=== PATIENT | female | born 1940 | race Caucasian/White ===

== ENCOUNTER → 2021-05-25 09:22 | Outpatient (BNVA) | payer MEDICARE, SELFPAY | PROVIDERS: PCP Family Medicine; Visit Provider Family Medicine | DX: E03.9 Hypothyroidism, unspecified (principal); Z13.220 Encounter for screening for lipoid disorders; I10 Essential (primary) hypertension; Z13.6 Encounter for screening for cardiovascular disorders | CPT/HCPCS: 80053; 80061; 84439; 84443; 84481 ==

== ENCOUNTER → 2021-09-23 15:12 | Outpatient (BNVA) | payer MEDICARE, SELFPAY | PROVIDERS: PCP Family Medicine; Visit Provider Family Medicine | DX: K21.9 Gastro-esophageal reflux disease without esophagitis (principal); I10 Essential (primary) hypertension; E03.9 Hypothyroidism, unspecified; M70.61 Trochanteric bursitis, right hip | CPT/HCPCS: 80048; 84443 ==

== ENCOUNTER → 2022-02-19 14:18 | Outpatient (BNVA) | payer MEDICARE, SELFPAY | PROVIDERS: PCP Family Medicine; Visit Provider Emergency Medicine | DX: M70.61 Trochanteric bursitis, right hip (principal); M25.551 Pain in right hip; G89.29 Other chronic pain; M25.561 Pain in right knee | CPT/HCPCS: 73503; 73562 ==

== ENCOUNTER → 2022-03-09 14:35 | Outpatient (BNVA) | payer MEDICARE, SELFPAY | PROVIDERS: PCP Family Medicine; Visit Provider Orthopaedic Surgery | DX: M16.11 Unilateral primary osteoarthritis, right hip (principal) | CPT/HCPCS: 99203; 99204 ==

== ENCOUNTER 2022-03-21 14:58 | Observation (INO) | payer MEDICARE, SELFPAY ==
[2022-03-21 15:00] VITALS: BP 108/69; PULSE 79; RESP 18; TEMP 36.7; O2SAT 93; BMI 29.6
--- NOTE | 2022-03-21 16:39 | CTR_ITS ---
PROCEDURE INFORMATION: Exam: CT Abdomen And Pelvis With Contrast Exam date and time: 03/21/2022 6:06 PM Age: 82 years old Clinical indication: Other: Diarrhea 2 weeks; Prior surgery; Surgery date: 6+ months; Surgery type: Hyster, stimulator; Additional info: Sbo TECHNIQUE: Imaging protocol: Computed tomography of the abdomen and pelvis with contrast. Radiation optimization: All CT scans at this facility use at least one of these dose optimization techniques: automated exposure control; mA and/or kV adjustment per patient size (includes targeted exams where dose is matched to clinical indication); or iterative reconstruction. Contrast material: OMNI 350; Contrast volume: 80 ml; Contrast route: INTRAVENOUS (IV); COMPARISON: CR XR hip RT 4V wo/w pel [id number] 02/19/2022 2:27 PM RADIATION DOSE METRICS: Total DLP (mGy-cm): 691.43 FINDINGS: Diaphragm: Large hiatal hernia. Liver: Normal. No mass. Gallbladder and bile ducts: Biliary dilation, likely related to prior cholecystectomy. Pancreas: Normal. No ductal dilation. Spleen: Normal. No splenomegaly. Adrenal glands: Normal. No mass. Kidneys and ureters: Normal. No hydronephrosis. Stomach and bowel: Prominent fluid in the small bowel and colon without dilation may reflect an enterocolitis. Diverticulosis without diverticulitis. Appendix: No evidence of appendicitis. Intraperitoneal space: Unremarkable. No free air. No significant fluid collection. Vasculature: Somewhat equivocal filling defects in the bilateral common femoral veins, consider further evaluation with duplex venous ultrasound if concern for deep venous thromboses exists. Lymph nodes: Unremarkable. No enlarged lymph nodes. Urinary bladder: Unremarkable as visualized. Reproductive: Unremarkable as visualized. Bones/joints: Severe right hip osteoarthritis. Soft tissues: Unremarkable. CT/CT abdomen pelvis w con* [id number] IMPRESSION: 1. Prominent fluid in the small bowel and colon without dilation may reflect an enterocolitis 2. Severe right hip osteoarthritis. 3. Large hiatal hernia. 4. Biliary dilation, likely related to prior cholecystectomy. 5. Diverticulosis without diverticulitis. 6. Somewhat equivocal filling defects in the bilateral common femoral veins, consider further evaluation with duplex venous ultrasound if concern for deep venous thromboses exists.
--- NOTE | 2022-03-21 16:40 | ED_ITS ---
HPI - Nausea/Vomiting/Diarrhea General: Chief complaint: Nausea/Vomiting/Diarrhea Stated complaint: N/V/D Weakness Time Seen by Provider: 03/21/22 16:34 History of Present Illness: 82-year-old female presents due to nausea vomiting diarrhea for 2 weeks. Denies any abdominal pain. Denies any constipation dysuria or pelvic discharge. Denies any blood or bile in the emesis or diarrh ea. Review of Systems Narrative: - CONSTITUTIONAL: Denies weight loss, fever and chills. - HEENT: Denies changes in vision and hearing. - RESPIRATORY: Denies SOB and cough. - CV: Denies palpitations and CP. - GI: As above - : Denies dysuria and urinary frequency. - MSK: Denies myalgia and joint pain. - SKIN: Denies rash and pruritus. - NEUROLOGICAL: Denies headache, weakness, numbness and syncope. - PSYCHIATRIC: Denies suicidal ideation [facility] PFSH: Medical History Degenerative arthritis of hip GERD (gastroesophageal reflux disease) Hypertension Hypothyroid Social History Smoking and tobacco status: never smoked History of recent travel: No Current gender identity: Female Physical Exam Narrative: EXAM NARRATIVE: - GENERAL: Alert and oriented x 3. No acute distress. Well-nourished. - EYES: EOMI. Anicteric. - HENT: Atraumatic, no C-spine tenderness. Moist mucous membranes. No scleral icterus. No cervical lymphadenopathy. - LUNGS: Clear to auscultation bilaterally. No accessory muscle use. Equal lung sounds bilaterally. No respiratory distress. - CARDIOVASCULAR: Regular rate and rhythm. No murmur. No JVD. - ABDOMEN: Soft, non-tender and non-distended. Negative CVA tenderness deric aterally, no rebound or guarding, negative Munoz sign. No palpable masses. - EXTREMITIES: No edema. Non-tender. - SKIN: No rashes or lesions. Warm. - NEUROLOGIC: No meningismus or focal neurological deficits. CN II-XII grossly intact. - PSYCHIATRIC: Cooperative. Appropriate mood and affect. Course Vital Signs: Vital signs: Vital Signs Temperature 98.1 F 03/21/22 15:00 Pulse Rate 79 03/21/22 15:00 Respiratory Rate 18 03/21/22 15:00 Blood Pressure 108/69 03/21/22 15:00 Pulse Oximetry 93 03/21/22 15:00 Oxygen Delivery Me thod 03/21/22 15:00 MDM - Nausea/Vomiting/Diarrhea Medical Decision Making 10-year-old presents with nausea vomiting diarrhea for 2 weeks. Lab work is concerning for SCHUYLER with creatinine elevation to 1.4 from baseline of 1. IV fluids provided. Denies any pain. CT scan does not reveal any acute abdominal pathology except for possible colitis. There is some artifact to bilateral lower extremity vessels however she denies any lower extremity pain or swelling. No clinical signs of DVT present. Remainder of lab work and imaging reviewed. Discussed with hospitalist and they agreed patient would benefit from admission. Patient admitted in stable condition. Further evaluation management per hospitalist team. Lab Data : 03/21/22 16:48 03/21/22 16:48 Radiology Impressions Abdomen/Pelvis CT 03/21/22 16:39 IMPRESSION: 1. Prominent fluid in the small bowel and colon without dilation may reflect an enterocolitis 2. Severe right hip osteoarthritis. 3. Large hiatal hernia. 4. Biliary dilation, likely related to prior cholecystectomy. 5. Diverticulosis without diverticulitis. 6. Somewhat equivocal filling defects in the bilateral common femoral veins, consider further evaluation with duplex venous ultrasound if concern for deep venous thromboses exists. Laboratory Results WBC 10.0 10^3/uL (4.0-10.0) 03/21/22 16:48 RBC 5.14 10^6/uL (4.1-5.3) 03/21/22 16:48 Hgb 14.3 g/dL (11.5-15.3) 03/21/22 16:48 Hct 46.1 % (37.0-47.0) 03/21/22 16:48 MCV 89.7 fl (81-99) 03/21/22 16:48 MCH 27.8 pg (28.0-34.0) L 03/21/22 16:48 MCHC 31.0 g/dL (30.0-36.0) 03/21/22 16:48 RDW 13.9 % (12.1-15.1) 03/21/22 16:48 Plt Count 359 10^3/cmm (130-400) 03/21/22 16:48 MPV 11.6 fL (7.4-10.4) H 03/21/22 16:48 Neut % (Auto) 67.9 % 03/21/22 16:48 Lymph % (Auto) 17.7 % 03/21/22 16:48 Wilkin % (Auto) 13.1 % 03/21/22 16:48 Eos % (Auto) 0.6 % 03/21/22 16:48 Baso % (Auto) 0.4 % 03/21/22 16:48 Neut # (Auto) 6.78 10^3/uL (1.8-7.7) 03/21/22 16:48 Lymph # (Auto) 1.8 10^3/uL (0.8-4.8) 03/21/22 16:48 Wilkin # (Auto) 1.3 10^3/uL (0.2-0.9) H 03/21/22 16:48 Eos # (Auto) 0.1 10^3/uL (0.0-0.8) 03/21/22 16:48 Baso # (Auto) 0.0 10^3/uL (0.0-0.1) 03/21/22 16:48 Nucleated RBC % (auto) 0 % 03/21/22 16:48 Nucleated RBCs # 0.0 /100WBC 03/21/22 16:48 Sodium 139 mmol/L (136-145) 03/21/22 16:48 Potassium 3.5 mmol/L (3.5-5.1) 03/21/22 16:48 Chloride 107 mmol/L (98-107) 03/21/22 16:48 Carbon Dioxide 19 mmol/L (22-29) L 03/21/22 16:48 Anion Gap 16.5 (5-19) 03/21/22 16:48 BUN 28 mg/dL (8-23) H 03/21/22 16:48 Creatinine 1.4 mg/dL (0.5-0.9) H 03/21/22 16:48 GFR Calculation Not Reportable 03/21/22 16:48 Glucose 91 mg/dL (65-115) 03/21/22 16:48 Calculated Osmolality 293 mOsm/kg (285-295) 03/21/22 16:48 Lactic Acid 1.3 mmol/L (0.5-2.2) 03/21/22 16:48 Calcium 9.3 mg/dL (8.5-10.5) 03/21/22 16:48 Total Bilirubin 0.4 mg/dL (0.15-1.2) 03/21/22 16:48 AST 16 U/L (0-32) 03/21/22 16:48 ALT 15 U/L (0-33) 03/21/22 16:48 Alkaline Phosphatase 160 U/L (35-105) H 03/21/22 16:48 Total Protein 6.9 g/dL (6.6-8.7) 03/21/22 16:48 Albumin 4.4 g/dL (3.5-5.2) 03/21/22 16:48 Globulin 2.5 g/dL (1.3-4.6) 03/21/22 16:48 Lipase 11 U/L (13-60) L 03/21/22 16:48 Urine Color Yellow (Yellow) 03/21/22 19:39 Urine Appearance Sl hazy (CLEAR) 03/21/22 19:39 Urine pH 5 (5-7) 03/21/22 19:39 Ur Specific [place] 1.015 (1.005-1.030) 03/21/22 19:39 Urine Protein Neg (Negative) 03/21/22 19:39 Urine Glucose (UA) Norm (Normal) 03/21/22 19:39 Urine Ketones Negative (Negative) 03/21/22 19:39 Urine Blood Neg (Negative) 03/21/22 19:39 Urine Nitrate Negative (Negative) 03/21/22 19:39 Urine Bilirubin Neg (Negative) 03/21/22 19:39 Urine Urobilinogen Norm mg/dL (Negative) 03/21/22 19:39 Ur Leukocyte Esterase Negative (Negative) 03/21/22 19:39 Urine RBC Rare /hpf (0-2) 03/21/22 19:39 Urine WBC 5-10 /hpf (0-5) H 03/21/22 19:39 Ur Squamous Epith Cells 0-4 /hpf (0-5) H 03/21/22 19:39 Amorphous Sediment Not Reportable 03/21/22 19:39 Urine Bacteria Trace /hpf (NONE) 03/21/22 19:39 Hyaline Casts 10-15 /lpf H 03/21/22 19:39 Urine Mucus 2+ /hpf 03/21/22 19:39 Discharge Plan Discharge Condition: Stable Prescriptions: No Action acetaminophen [Tylenol Extra Strength] 500 mg tablet 1,000 mg PO DAILY PRN (Reason: Pain) omeprazole 40 mg capsule,delayed release(DR/EC) 40 mg PO DAILY 90 Days Qty: 90 1RF losartan 50 mg tablet 50 mg PO DAILY 90 Days Qty: 90 1RF diltiazem HCl 240 mg capsule,ext.rel 24h degradable 240 mg PO DAILY 90 Days Qty: 90 1RF diclofenac sodium 50 mg tablet,delayed release (DR/EC) 50 mg PO BID PRN (Reason: hip pain/leg) 90 Days Qty: 180 1RF Rx Instructions: WITH FOOD ciprofloxacin HCl 500 mg tablet 500 mg PO BID 4 Days Qty: 8 0RF ondansetron 4 mg tablet,disintegrating 4 mg PO Q6H PRN (Reason: nausea and vomiting) Qty: 14 0RF Rx Instructions: 340b please levothyroxine 137 mcg tablet 137 mcg PO DAILY Referrals: Jeannine Chan MD [Primary Care Provider] - Coding Level of Care Code ED Logistics Team Lead for Alvaro Sewell
[2022-03-21] MEDS: ondansetron 2 mg/ML SDV 2 mL 4 MG IVP (16:57)
[2022-03-21] MEDS: sodium chloride 0.9% 1,000 ML 999 ML IV (16:57)
[2022-03-21 17:04] LABS: Basophils % 0.4 %; Eosinophils # 0.1 10^3/uL (0.0-0.8); Eosinophils % 0.6 %; Hematocrit 46.1 % (37.0-47.0); Hemoglobin 14.3 g/dL (11.5-15.3); Lymphocytes # 1.8 10^3/uL (0.8-4.8); Lymphocytes % 17.7 %; Mean Corpuscular Hemoglobin 27.8 pg (28.0-34.0); Mean Corpuscular Volume 89.7 fl (81-99); Mean Platelet Volume 11.6 fL (7.4-10.4); Monocytes # 1.3 10^3/uL (0.2-0.9); Monocytes % 13.1 %; Neutrophils # 6.78 10^3/uL (1.8-7.7); Neutrophils % 67.9 %; Nucleated Red Blood Cells % 0 %; Platelet Count 359 10^3/cmm (130-400); Red Blood Count 5.14 10^6/uL (4.1-5.3); Red Cell Distribution Width 13.9 % (12.1-15.1)
[2022-03-21 17:21] LABS: Alanine Aminotransferase 15 U/L (0-33); Albumin Level 4.4 g/dL (3.5-5.2); Alkaline Phosphatase 160 U/L (35-105); Anion Gap 16.5 (5-19); Aspartate Amino Transferase 16 U/L (0-32); Blood Urea Nitrogen 28 mg/dL (8-23); Calcium 9.3 mg/dL (8.5-10.5); Carbon Dioxide 19 mmol/L (22-29); Chloride 107 mmol/L (98-107); Globulin 2.5 g/dL (1.3-4.6); Glucose 91 mg/dL (65-115); Lipase 11 U/L (13-60); Osmolality Calculated 293 mOsm/kg (285-295); Potassium 3.5 mmol/L (3.5-5.1); Sodium 139 mmol/L (136-145); Total Bilirubin 0.4 mg/dL (0.15-1.2); Total Protein 6.9 g/dL (6.6-8.7)
[2022-03-21 17:22] LABS: Lactic Sepsis W/Reflex 1.3 mmol/L (0.5-2.2)
[2022-03-21] MEDS: iohexol 350 mg/mL 100 mL Btl 80 ML IV (18:08)
--- NOTE | 2022-03-21 19:12 | PC.NURSE ---
REPORT GIVEN TO KAYLAH GONZALEZ ASSUMED CARE.
[2022-03-21 20:31] LABS: Add Urine Microscopic? YES; Bilirubin Urine Neg (Negative); Blood Urine Neg (Negative); Glucose Urine UA Norm (Normal); Ketones Urine Negative (Negative); Leukocyte Esterase Urine Negative (Negative); Nitrate Urine Negative (Negative); Protein Urine Neg (Negative); Specific Gravity, Urine 1.015 (1.005-1.030); Urine Appearance SL Hazy (CLEAR); Urine Color Yellow (Yellow); Urobilinogen Urine Norm (Negative); pH Urine 5 (5-7)
[2022-03-21 20:32] LABS: Bacteria Urine TRACE /hpf; Mucus Urine 2+ /hpf; RBC Urine RARE /hpf (0-2); Squamous Epithelial Cell Urine 0-4 /hpf (0-5)
[2022-03-21 20:33] LABS: Add Urine Culture? No
[2022-03-21] MEDS: metroNIDAZOLE IV 500 MG/100 ML PREMIX 100 MG IV (22:29)
[2022-03-21 22:32] VITALS: BP 121/84; PULSE 85; RESP 18; TEMP 36.7; O2SAT 94
[2022-03-21 23:37] VITALS: BMI 29.6
[2022-03-21] MEDS: ciprofloxacin 400 MG/200 ML PREMIX 200 MG IV (23:58)
[2022-03-22] VITALS (13 sets, daily range): BP systolic 89–116; BP diastolic 54–68; PULSE 50–69; RESP 16–18; TEMP 36.6–37.1; O2SAT 86–94
--- NOTE | 2022-03-22 00:26 | PM.HP ---
Providers/Chief Complaint Admitting Physician: Caleb Falk MD Primary Care Provider: Jeannine Chan MD Chief Complaint: N/V/D Weakness History of Present Illness Siomara Key is a 82 year old female with a GERD, hypertension, hypothyroidism, who presents [facility] due to diarrhea, abdominal bloating, nausea for the last 2 weeks. Patient tells me that she has to some degree chronic diarrhea given her gallbladder removal 8 years ago, she has postcholecystectomy syndrome. However the last 2 weeks, she has been having episodes of profuse watery diarrhea, denies any history of food poisoning, does drink well water, does have some nonspecific abdominal bloating and abdominal pain, some nausea. She does not whenever she eats she will just get profuse watery diarrhea. No lightheadedness, dizziness, no fevers, no chills. No bloody or black stools. Review of Systems Card: Denies: chest pain Resp: Denies: dyspnea GI: Reports: abdominal pain, nausea and diarrhea Medications/Allergies Home Medications Medication Instructions Recorded Confirmed Last Taken Type acetaminophen 500 mg tablet 1,000 mg PO DAILY PRN Pain 03/10/21 03/21/22 Unknown History (Tylenol Extra Strength) diclofenac sodium 50 mg 50 mg PO BID PRN hip pain/leg 90 09/23/21 03/21/22 03/21/22 Rx tablet,delayed release days #180 tabs diltiazem HCl 240 mg 240 mg PO DAILY 90 days #90 caps 09/23/21 03/21/22 03/21/22 Rx capsule,extended release 24 hr, controlled losartan 50 mg tablet 50 mg PO DAILY 90 days #90 tabs 09/23/21 03/21/22 03/20/22 Rx omeprazole 40 mg capsule,delayed 40 mg PO DAILY 90 days #90 caps 09/23/21 03/21/22 03/21/22 Rx release ciprofloxacin HCl 500 mg tablet 500 mg PO BID 4 days #8 tabs 03/20/22 03/21/22 03/21/22 Rx ondansetron 4 mg disintegrating 4 mg PO Q6H PRN nausea and 03/20/22 03/21/22 03/21/22 Rx tablet vomiting #14 tabs levothyroxine 137 mcg tablet 137 mcg PO DAILY 03/21/22 03/21/22 03/20/22 History Allergies Allergy/AdvReac Type Severity Reaction Status Date / Time codeine AdvReac Mild vomiting Verified 03/20/22 10:09 PFSH Acute PFSH: Medical History (Updated 03/22/22 @ 00:32 by Caleb Falk MD) Degenerative arthritis of hip GERD (gastroesophageal reflux disease) Hypertension Hypothyroid Surgical History (Updated 03/22/22 @ 00:28 by Caleb Falk MD) History of cholecystectomy Social History Smoking and tobacco status: never smoked History of recent travel: No Current gender identity: Female Vitals/I&O/Wt Last Vital Signs Temp 98.1 F 03/21/22 22:32 Pulse 85 03/21/22 22:32 Resp 18 03/21/22 22:32 BP 121/84 03/21/22 22:32 Pulse Ox 94 03/21/22 22:32 O2 Del Method 03/21/22 22:32 03/21/22 03/21/22 03/22/22 14:59 22:59 06:59 Intake Total 1000 / 1000 Balance 1000 / 1000 Weight last 48 hrs Weight 80.739 kg Weight 80.739 kg Physical Exam Const: COMMON NORMALS: no acute distress and patient oriented x3 HENMT: COMMON NORMALS: normocephalic HEAD & SCALP: normocephalic Neck/C-Spine: COMMON NORMALS: no JVD Resp: COMMON NORMALS: normal respiratory effort, No retractions, No use of accessory muscles and clear to auscultation bilaterally AUSCULTATION: clear to auscultation bilaterally Cardio: COMMON NORMALS: no JVD, regular rate, regular rhythm, S1 normal heart sound present and S2 normal heart sound present RATE: regular rate RHYTHM: regular rhythm HEART SOUNDS: S1 normal heart sound present and S2 normal heart sound present GI: COMMON NORMALS: Normal to inspection, nondistended, normoactive bowel sounds present, Soft to palpation, non-tender, No hepatosplenomegaly present, no masses and no bruits PALPATION: Yes Soft to palpation and Yes No hepatosplenomegaly present Extremity: COMMON NORMALS: capillary refill normal, no clubbing, cyanosis or edema, no calf tenderness and no pedal edema Neuro: COMMON NORMALS: patient oriented x3 Psych: COMMON NORMALS: mental status grossly normal Data : 03/21/22 16:48 03/21/22 16:48 A&P Assessment and plan (1) Acute kidney injury: Status: Acute (2) Diarrhea: Status: Acute (3) Dehydration: Status: Acute (4) Enterocolitis: Status: Acute Plan Enterocolitis -Seen on CT -Etiology unclear -Potentially postcholecystectomy syndrome -Stool studies pending -IV fluids -Serial abdominal exams -Continue Cipro and Flagyl SCHUYLER, IV fluids Hypothyroidism continue home medications CT of the abdomen shows filling defects in the bilateral, femoral vein, which are equivocal -She does not have any pain complaints, no calf pain, calf swelling -Continue to monitor DNR/DNI Lovenox for DVT prophylaxis Attestations Medical Necessity Statement*: Patient requires hospitalization, outpatient with observation, for dehydration, enterocolitis Coding Level of Care Code Acute Binder Lock[employer]ch for [facility] Fwd Diagnoses Acute kidney injury N17.9 Diarrhea R19.7 Dehydration E86.0 Enterocolitis K52.9
[2022-03-22] MEDS: enoxaparin 40 mg/0.4 mL Syringe SUBCUT (02:34)
[2022-03-22] MEDS: sodium chloride 0.9% 1,000 ML 75 ML IV ×2 (02:34→15:35)
[2022-03-22] MEDS: pantoprazole 40 mg SDV IVP (02:38)
[2022-03-22] MEDS: metroNIDAZOLE IV 500 MG/100 ML PREMIX 100 MG IV ×3 (06:20→22:34)
[2022-03-22] MEDS: acetaminophen 325 mg Tablet 650 MG PO (08:22)
[2022-03-22] MEDS: losartan 50 mg Tablet PO (08:23)
[2022-03-22] MEDS: dilTIAZem ER (24HR) 240 mg Capsule PO (08:24)
[2022-03-22] MEDS: levothyroxine 137 mcg Tablet PO (08:27)
--- NOTE | 2022-03-22 09:21 | PM.PN ---
Subjective Subjective: Siomara reports she is cannot any nausea currently and is able to tolerate some clear liquids. History reviewed, with the patient as well as in records. She states that for 4 weeks she has had loose stool with every p.o. ingestion, 6 to 8/day or more. She states nausea has occurred over the last 4 days, associated with vomiting. No significant abdominal pain. Medications: Reviewed: Yes Vitals/I&O/Wt Last Vital Signs Temp 97.9 F 03/22/22 07:49 Pulse 64 03/22/22 07:49 Resp 16 03/22/22 07:49 BP 107/60 03/22/22 08:23 Pulse Ox 92 03/22/22 07:49 O2 Del Method 03/22/22 07:49 03/21/22 03/22/22 03/22/22 22:59 06:59 14:59 Intake Total 1000 / 1000 760 / 760 Balance 1000 / 1000 760 / 760 Weight last 48 hrs Weight 80.739 kg Weight 80.739 kg Physical Exam Narrative: General exam no apparent Neck is supple no lymphadenopathy thyromegaly Cardiovascular regular rate and rhythm without murmur Lungs clear no wheezing or crackles Abdomen is soft nontender positive bowel sounds Extremities no cyanosis clubbing or edema Data : 03/21/22 16:48 03/21/22 16:48 A&P Assessment and plan (1) Enterocolitis: Concern on CT scan for colitis Placed on Cipro and Flagyl Awaiting stool studies, C. difficile, bacterial panel, parasite panel were ordered Clear liquid diet Monitor for improvement Secondary to component of nausea cannot rule out upper gastrointestinal symptomatology such as gastritis. Discontinue patient's home anti-inflammatory. Protonix IV as needed. Status: Acute (2) Dehydration: Resolved with hydration Status: Acute (3) Diarrhea: Patient reports this is continued in the hospital Await stool studies Status: Acute (4) Acute kidney injury: Recheck creatinine tomorrow Avoid anti-inflammatories, renal toxic medication Status: Acute (5) Degenerative arthritis of hip: Initiate Oxy IR. If nausea occurs will reconsider. No anti-inflammatories Status: Acute Qualifiers: Osteoarthritis type: primary Laterality: right Qualified Code(s): M16.11 - Unilateral primary osteoarthritis, right hip Plan Hypertension, continue home medication. Blood pressure is somewhat low. Lower dose of losartan Multiple other medical problems as listed in past medical history Allow natural Lovenox for DVT prophylaxis Attestations Medical Necessity Statement*: Requires continued hospitalization, for IV antibiotics secondary to colitis pending improvement of symptoms so acute kidney injury and dehydration do not recur. Coding Level of Care Code Acute External Auditor for g Fwd Diagnoses Enterocolitis K52.9 Dehydration E86.0 Diarrhea R19.7 Acute kidney injury N17.9 Degenerative arthritis of hip M16.11 Osteoarthritis type: primary Laterality: right
[2022-03-22] MEDS: oxyCODONE 5 mg IR Tab/Cap PO (11:38)
[2022-03-22] MEDS: ciprofloxacin 400 MG/200 ML PREMIX 200 MG IV ×2 (11:40→23:29)
[2022-03-23] VITALS (7 sets, daily range): BP systolic 103–116; BP diastolic 62–68; PULSE 50–62; RESP 16–18; TEMP 36.7–36.9; O2SAT 92–94
[2022-03-23] MEDS: pantoprazole 40 mg SDV IVP (02:09)
[2022-03-23] MEDS: enoxaparin 40 mg/0.4 mL Syringe SUBCUT (02:09)
[2022-03-23] MEDS: acetaminophen 325 mg Tablet 650 MG PO (04:12)
[2022-03-23 05:03] LABS: Basophils % 0.4 %; Eosinophils # 0.1 10^3/uL (0.0-0.8); Eosinophils % 1.8 %; Hemoglobin 12.7 g/dL (11.5-15.3); Lymphocytes # 1.5 10^3/uL (0.8-4.8); Lymphocytes % 19.3 %; Mean Corpuscular Hemoglobin 27.5 pg (28.0-34.0); Mean Corpuscular Volume 88.7 fl (81-99); Mean Platelet Volume 12.2 fL (7.4-10.4); Monocytes # 0.9 10^3/uL (0.2-0.9); Monocytes % 11.1 %; Neutrophils # 5.15 10^3/uL (1.8-7.7); Neutrophils % 67.1 %; Nucleated Red Blood Cells % 0 %; Platelet Count 303 10^3/cmm (130-400); Red Blood Count 4.62 10^6/uL (4.1-5.3); Red Cell Distribution Width 14.4 % (12.1-15.1); White Blood Count 7.7 10^3/uL (4.0-10.0)
[2022-03-23 05:43] LABS: Alanine Aminotransferase 13 U/L (0-33); Albumin Level 3.6 g/dL (3.5-5.2); Alkaline Phosphatase 130 U/L (35-105); Aspartate Amino Transferase 22 U/L (0-32); Blood Urea Nitrogen 14 mg/dL (8-23); Calcium 8.8 mg/dL (8.5-10.5); Carbon Dioxide 20 mmol/L (22-29); Chloride 110 mmol/L (98-107); Globulin 2.4 g/dL (1.3-4.6); Glucose 94 mg/dL (65-115); Magnesium 1.7 mg/dL (1.7-2.3); NT Pro B Type Natriuretic Pept 936 pg/mL (0-450); Osmolality Calculated 292 mOsm/kg (285-295); Sodium 141 mmol/L (136-145); Thyroid Stimulating Hormone 21.18 uIU/mL (0.27-4.20); Total Bilirubin 0.4 mg/dL (0.15-1.2)
[2022-03-23] MEDS: metroNIDAZOLE IV 500 MG/100 ML PREMIX 100 MG IV (06:04)
[2022-03-23] MEDS: oxyCODONE 5 mg IR Tab/Cap PO (08:59)
[2022-03-23] MEDS: levothyroxine 150 mcg Tablet PO (09:01)
[2022-03-23] MEDS: potassium chloride ER 20 mEq Tablet 40 MEQ PO (09:01)
[2022-03-23] MEDS: dilTIAZem ER (24HR) 180 mg Capsule PO (09:01)
--- NOTE | 2022-03-23 09:50 | PM.DCS ---
Discharge Providers Date of Admission: 03/21/22 22:08 Date of Discharge: March 23, 2022 Attending Provider at Admission: Caleb Falk MD Attending Provider at Discharge: Remi Bertrand MD Primary Care Provider: Jeannine Chan MD Diagnoses at Discharge Discharge Diagnosis (1) Enterocolitis: Status: Acute (2) Dehydration: Status: Acute (3) Diarrhea: Status: Acute (4) Acute kidney injury: Status: Acute (5) Degenerative arthritis of hip: Status: Acute Qualifiers: Osteoarthritis type: primary Laterality: right Qualified Code(s): M16.11 - Unilateral primary osteoarthritis, right hip Reason for Visit Reason for Visit: N/V/D Weakness Hospital Course Hospital Course Siomara is an 82-year-old white female who presented to the hospital with complaints of significant diarrhea, as well as nausea and vomiting. CT scan suggested colitis. She was started on Cipro and Flagyl. Stool studies were ordered, but unfortunately not able to be collected as patient had significant urination and all specimens. With the antibiotic treatment she improved significantly and had a significant decrease in volume of stool. She had no nausea and vomiting. She had no abdominal pain. She was hydrating orally and it was thought she could be discharged home on March 23. She did not have any fever, or elevated white blood cell count. I discussed with her the possibility of a colonoscopy in 4 to 6 weeks, depending on her primary care provider's preference. Should symptomatology recur, stool studies should be done at that point. Secondary to borderline low blood pressures as well as heart rate multiple medication adjustments occurred. She was also taken off diclofenac secondary to acute kidney injury present on admission which was improved by time of discharge. Thyroid hormone was also increased secondary to low TSH. I discussed her care with her daughter and the patient and they had opportunity to ask questions and agreed with plan. Physical Exam Narrative: General exam no distress Neck is supple Cardiovascular regular rate and rhythm without murmur Lungs clear no wheezing or crackles Abdomen is soft with positive bowel sounds Extremities no cyanosis clubbing or edema. No tenderness or redness. Discharge Data Studies Completed and Pending Completed Studies During Hospitalization Category Date Time Status CT abdomen pelvis w con* [id number] Stat Cat Scan 03/21/22 16:39 Completed Pending at discharge Category Date Time Status C DIFF [Clostridioides Difficile PCR] Routine Lab 03/21/22 16:39 Uncollected Clostridioides Difficile PCR Routine Lab 03/22/22 00:14 Ordered Complete Blood Count w/Auto AM LABS Lab 03/24/22 04:00 Ordered Complete Blood Count w/Auto AM LABS Lab 03/25/22 04:00 Ordered Comprehensive Metabolic Panel AM LABS Lab 03/24/22 04:00 Ordered Comprehensive Metabolic Panel AM LABS Lab 03/25/22 04:00 Ordered Enteric Bacterial Panel by PCR Routine Lab 03/22/22 00:14 Ordered Enteric Parasite Panel by PCR Routine Lab 03/22/22 00:14 Ordered Immunochemical Fecal OCB Routine Lab 03/22/22 00:14 Ordered Lactoferrin Routine Lab 03/22/22 00:14 Ordered Magnesium AM LABS Lab 03/24/22 04:00 Ordered Magnesium AM LABS Lab 03/25/22 04:00 Ordered Radiology Impressions Abdomen/Pelvis CT 03/21/22 16:39 IMPRESSION: 1. Prominent fluid in the small bowel and colon without dilation may reflect an enterocolitis 2. Severe right hip osteoarthritis. 3. Large hiatal hernia. 4. Biliary dilation, likely related to prior cholecystectomy. 5. Diverticulosis without diverticulitis. 6. Somewhat equivocal filling defects in the bilateral common femoral veins, consider further evaluation with duplex venous ultrasound if concern for deep venous thromboses exists. Laboratory Results WBC 7.7 10^3/uL (4.0-10.0) 03/23/22 04:18 RBC 4.62 10^6/uL (4.1-5.3) 03/23/22 04:18 Hgb 12.7 g/dL (11.5-15.3) 03/23/22 04:18 Hct 41.0 % (37.0-47.0) 03/23/22 04:18 MCV 88.7 fl (81-99) 03/23/22 04:18 MCH 27.5 pg (28.0-34.0) L 03/23/22 04:18 MCHC 31.0 g/dL (30.0-36.0) 03/23/22 04:18 RDW 14.4 % (12.1-15.1) 03/23/22 04:18 Plt Count 303 10^3/cmm (130-400) 03/23/22 04:18 MPV 12.2 fL (7.4-10.4) H 03/23/22 04:18 Neut % (Auto) 67.1 % 03/23/22 04:18 Lymph % (Auto) 19.3 % 03/23/22 04:18 Leon % (Auto) 11.1 % 03/23/22 04:18 Eos % (Auto) 1.8 % 03/23/22 04:18 Baso % (Auto) 0.4 % 03/23/22 04:18 Neut # (Auto) 5.15 10^3/uL (1.8-7.7) 03/23/22 04:18 Lymph # (Auto) 1.5 10^3/uL (0.8-4.8) 03/23/22 04:18 Leon # (Auto) 0.9 10^3/uL (0.2-0.9) 03/23/22 04:18 Eos # (Auto) 0.1 10^3/uL (0.0-0.8) 03/23/22 04:18 Baso # (Auto) 0.0 10^3/uL (0.0-0.1) 03/23/22 04:18 Nucleated RBC % (auto) 0 % 03/23/22 04:18 Nucleated RBCs # 0.0 /100WBC 03/23/22 04:18 Sodium 141 mmol/L (136-145) 03/23/22 04:18 Potassium 3.0 mmol/L (3.5-5.1) L 03/23/22 04:18 Chloride 110 mmol/L (98-107) H 03/23/22 04:18 Carbon Dioxide 20 mmol/L (22-29) L 03/23/22 04:18 Anion Gap 14.0 (5-19) 03/23/22 04:18 BUN 14 mg/dL (8-23) 03/23/22 04:18 Creatinine 1.2 mg/dL (0.5-0.9) H 03/23/22 04:18 GFR Calculation Not Reportable 03/23/22 04:18 Glucose 94 mg/dL (65-115) 03/23/22 04:18 Calculated Osmolality 292 mOsm/kg (285-295) 03/23/22 04:18 Lactic Acid 1.3 mmol/L (0.5-2.2) 03/21/22 16:48 Calcium 8.8 mg/dL (8.5-10.5) 03/23/22 04:18 Magnesium 1.7 mg/dL (1.7-2.3) 03/23/22 04:18 Total Bilirubin 0.4 mg/dL (0.15-1.2) 03/23/22 04:18 AST 22 U/L (0-32) 03/23/22 04:18 ALT 13 U/L (0-33) 03/23/22 04:18 Alkaline Phosphatase 130 U/L (35-105) H 03/23/22 04:18 NT-Pro-B Natriuret Pep 936 pg/mL (0-450) H 03/23/22 04:18 Total Protein 6.0 g/dL (6.6-8.7) L 03/23/22 04:18 Albumin 3.6 g/dL (3.5-5.2) 03/23/22 04:18 Globulin 2.4 g/dL (1.3-4.6) 03/23/22 04:18 Lipase 11 U/L (13-60) L 03/21/22 16:48 TSH 21.18 uIU/mL (0.27-4.20) H 03/23/22 04:18 Urine Color Yellow (Yellow) 03/21/22 19:39 Urine Appearance Sl hazy (CLEAR) 03/21/22 19:39 Urine pH 5 (5-7) 03/21/22 19:39 Ur Specific Panacea 1.015 (1.005-1.030) 03/21/22 19:39 Urine Protein Neg (Negative) 03/21/22 19:39 Urine Glucose (UA) Norm (Normal) 03/21/22 19:39 Urine Ketones Negative (Negative) 03/21/22 19:39 Urine Blood Neg (Negative) 03/21/22 19:39 Urine Nitrate Negative (Negative) 03/21/22 19:39 Urine Bilirubin Neg (Negative) 03/21/22 19:39 Urine Urobilinogen Norm mg/dL (Negative) 03/21/22 19:39 Ur Leukocyte Esterase Negative (Negative) 03/21/22 19:39 Urine RBC Rare /hpf (0-2) 03/21/22 19:39 Urine WBC 5-10 /hpf (0-5) H 03/21/22 19:39 Ur Squamous Epith Cells 0-4 /hpf (0-5) H 03/21/22 19:39 Amorphous Sediment Not Reportable 03/21/22 19:39 Urine Bacteria Trace /hpf (NONE) 03/21/22 19:39 Hyaline Casts 10-15 /lpf H 03/21/22 19:39 Urine Mucus 2+ /hpf 03/21/22 19:39 Vitals Last Vital Signs Temp 98.4 F 03/23/22 04:00 Pulse 50 L 03/23/22 05:06 Resp 16 03/23/22 08:59 BP 112/66 03/23/22 04:00 Pulse Ox 94 03/23/22 03:26 O2 Del Method 03/23/22 03:26 Discharge Plan Discharge Patient Disposition: Home Condition: Stable Prescriptions: New metronidazole 500 mg tablet 500 mg PO TID Qty: 12 0RF levothyroxine 150 mcg Tablet 150 mcg PO DAILY Qty: 30 0RF diltiazem HCl [DILT-XR] 180 mg Capsule,Ext.Rel 24h Degradable 180 mg PO DAILY Qty: 30 0RF Continued acetaminophen [Tylenol Extra Strength] 500 mg tablet 1,000 mg PO DAILY PRN (Reason: Pain) omeprazole 40 mg capsule,delayed release(DR/EC) 40 mg PO DAILY 90 Days Qty: 90 1RF ciprofloxacin HCl 500 mg tablet 500 mg PO BID 4 Days Qty: 8 0RF ondansetron 4 mg tablet,disintegrating 4 mg PO Q6H PRN (Reason: nausea and vomiting) Qty: 14 0RF Rx Instructions: 340b please Discontinued losartan 50 mg tablet 50 mg PO DAILY 90 Days Qty: 90 1RF diltiazem HCl 240 mg capsule,ext.rel 24h degradable 240 mg PO DAILY 90 Days Qty: 90 1RF diclofenac sodium 50 mg tablet,delayed release (DR/EC) 50 mg PO BID PRN (Reason: hip pain/leg) 90 Days Qty: 180 1RF Rx Instructions: WITH FOOD levothyroxine 137 mcg tablet 137 mcg PO DAILY Discharge Orders: Discharge Order (Routine); Ordered 03/23/22 Ordered By: Remi Bertrand Referrals: Jeannine Chan MD [Primary Care Provider] - 4-7 days (BMP on follow-up) Discharge Diet: Low Fat Discharge Activity: Increase activity as tolerated Patient Instructions: Opioid Safety Activity Restrictions/Additional Instructions: Follow-up with your primary care provider in 3 to 5 days Low-fat diet Take all medicine as prescribed Note that your blood pressure medicine has been lowered secondary to low blood pressure noted on admission as well as acute kidney injury which is resolving. BMP on follow-up with your primary care provider Dose of thyroid hormone has also been increased Voltaren has been discontinued Discharge Attestations Time Spent in Discharge Care*: greater than 30 min Quality Metrics Clinical Quality Measures [ No reported AMI, CVA or VTE this stay] Coding Level of Care Code Acute Chg [facility] note Diagnoses Enterocolitis K52.9 Dehydration E86.0 Diarrhea R19.7 Acute kidney injury N17.9 Degenerative arthritis of hip M16.11 Osteoarthritis type: primary Laterality: right
[2022-03-23] MEDS: lidocaine 1% 5 ML in potassium chloride premix 100 ML 25 ML IV (10:26)
== END 2022-03-23 15:00 | disposition home or self-care (01) ==
LOC: ER 21:28 → MEDSURG 03-22 07:05
PROVIDERS: Physician Assistant; Admitting Provider Family Medicine; Emergency Provider Emergency Medicine; PCP Family Medicine; Visit Provider Internal Medicine
DX: K52.9 Noninfective gastroenteritis and colitis, unspecified (principal); N17.9 Acute kidney failure, unspecified; E86.0 Dehydration; M16.11 Unilateral primary osteoarthritis, right hip; E03.9 Hypothyroidism, unspecified; I10 Essential (primary) hypertension; K21.9 Gastro-esophageal reflux disease without esophagitis; K44.9 Diaphragmatic hernia without obstruction or gangrene; Z88.5 Allergy status to narcotic agent; Z90.49 Acquired absence of other specified parts of digestive tract; Z66 Do not resuscitate
CPT/HCPCS: 36415; 51701; 74177; 80053; 81001; 83605; 83690; 83735; 83880; 84443; 85025; 96372; 96374; 99285; C9113; G0378; J0744; J1650; J2405; J3480; J7030; Q9967; S0030

== ENCOUNTER 2022-05-03 10:21 | Observation (INO) | payer MEDICARE, SELFPAY ==
[2022-04-19 10:45] VITALS: BMI 30.5
--- NOTE | 2022-04-19 15:23 | ANES.PREANE2 ---
Pre-Anesthetic Assessment Height/Weight: Height 1.63 m Weight 80.739 kg Preop Diagnosis: Osteoarthritis right hip Operation Date: 05/03/22 07:00 Proposed Procedures p right total hip arthroplasty M16.9, 49434(Right) - James Sarah MD Familial anesthetic complications: none Was Beta Francisco taken within 24 hours: N/A Was Clonidine taken within 24 hours: N/A Social No alcohol and No tobacco Exam alert, oriented x 3 and regular rate & rhythm Airway Submandibular: within normal limits Cervical ROM: within normal limits Mallampati: Class II Dentition: false (upper) CV/HEM Hypertension GI Gastroesophageal Reflux Disease Metabolic Thyroid Disease [facility] Osteoarthritis/DJD Anesthetic Plan ASA status: 2 Anesthesia: Regional (specify below) (SAB) Medications/Allergies Home Medications Medication Instructions Recorded Confirmed Last Taken Type acetaminophen 500 mg tablet 1,000 mg PO DAILY PRN Pain 03/10/21 04/19/22 Unknown History (Tylenol Extra Strength) diltiazem HCl 180 mg 180 mg PO DAILY #30 caps 03/23/22 04/19/22 Unknown Rx capsule,extended release 24 hr, controlled (DILT-XR) levothyroxine 150 mcg tablet 150 mcg PO DAILY 90 days #90 tabs 03/30/22 04/19/22 Unknown Rx omeprazole 40 mg capsule,delayed 40 mg PO DAILY 90 days #90 caps 03/30/22 04/19/22 Unknown Rx release Allergies Allergy/AdvReac Type Severity Reaction Status Date / Time codeine AdvReac Mild vomiting Verified 04/19/22 10:36 [facility] Anesthesia Medical History Degenerative arthritis of hip GERD (gastroesophageal reflux disease) Hypertension Hypothyroid Surgical History History of cholecystectomy Social History Smoking and tobacco status: never smoked History of recent travel: No Current gender identity: Female Data Anesthesia Cardiac Studies: No Data to Display
[2022-05-03] VITALS (14 sets, daily range): BP systolic 89–144; BP diastolic 46–109; PULSE 68–113; RESP 12–22; TEMP 36.2–37.5; O2SAT 93–98; BMI 35.2
[2022-05-03] MEDS: acetaminophen 500 mg Tablet 1000 MG PO ×3 (06:23→18:50)
[2022-05-03] MEDS: CELEcoxib 200 mg Capsule 400 MG PO (06:23)
[2022-05-03] MEDS: gabapentin 300 mg Capsule PO (06:24)
[2022-05-03] MEDS: sodium chloride 0.9% 1,000 ML 30 ML IV (06:30)
--- NOTE | 2022-05-03 06:30 | P.ANESUD_ITS ---
Pre-Anesthetic Update Pre-Anesthetic Assessment: Date of Surgery/Procedure: 05/03/22 Preop Mckayla gnosis: Osteoarthritis right hip Proposed Procedure: Operation Date: 05/03/22 07:00 Proposed Procedures p right total hip arthroplasty M16.9, 79473(Right) - James Sarah MD Any changes to Pre-Anesthetic Assessment?: No Last Intake: Intake Last Liquid Date 05/02/22 Last Liquid Time 18:00 Last Solid Date 05/02/22 Last Solid Time 18:00 Vitals: Temperature 97.6 F 05/03/22 05:57 Temperature Source Temporal Artery S can 05/03/22 05:57 Pulse Rate 77 05/03/22 05:57 Respiratory Rate 18 05/03/22 05:57 Blood Pressure 144/109 05/03/22 05:57 Blood Pressure Genesis n 120 05/03/22 05:57 Pulse Oximetry 96 05/03/22 05:57 Oxygen Delivery Me thod 05/03/22 06:18 Exam: Pre-Anes Outpt Exam: alert, oriented x 3, clear to auscultation bilaterally and regular rate & rhythm Cardiac Studies: No Data to Display
--- NOTE | 2022-05-03 06:52 | P.HP_ITS ---
Same Day Surgery H&P Indication for Procedure/HPI DATE OF PROCEDURE: May 03, 2022 CHIEF COMPLAINT/INDICATIONFOR SURGICAL PROCEDURE: Osteoarthritis right hip here for right total hip arthroplasty PREOP DIAGNOSIS: Osteoarthritis right hip PLANNED PROCEDURE: Operation Date: 05/03/22 07:00 Proposed Procedures p right total hip arthroplasty M16.9, 16355(Right) - James Sarah MD 82-year-old female with a 2-year history of progressive hip pain. She describes pain with any ambulation or prolonged standing. She is unable to walk more than 50 yards. She has previously tried injections in the hip and medications including Tylenol and anti-inflammatories without improvement. She is here today for a total hip arthroplasty Medications/Allergies* Home Medications Medication Instructions Recorded Confirmed Type naproxen sodium 220 mg tablet 220 mg PO Q12H PRN Pain 05/03/22 05/03/22 History (Aleve) Allergies/Adverse Reactions Allergy/AdvReac Type Severity Reaction Status Date / Time codeine AdvReac Mild vomiting Verified 04/19/22 10:36 Pertinent History/Comorbid Conditions* Medical History (Updated 03/30/22 @ 12:37 by Jeannine Chan MD) Degenerative arthritis of hip GERD (gastroesophageal reflux disease) Hypertension Hypothyroid Surgical History (Updated 03/22/22 @ 00:28 by Caleb Falk MD) History of cholecystectomy Social History Smoking and tobacco status: never smoked History of recent travel: No Current gender identity: Female Pertinent Exam Findings alert, oriented x 3, clear to auscultation bilaterally, regular rate & rhythm and operative site marked Pertinent Data Radiographs of the right hip are reviewed dated 02/20/2020 Severe degenerative changes of the right hip Recommendations Surgery/Procedure today Coding Level of Care Code Acute [employer] 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
[2022-05-03] MEDS: ceFAZolin 2,000 MG in sodium chloride 0.9% (plus) 50 ML 100 MG IV ×3 (07:00→22:20)
[2022-05-03] MEDS: tranexamic acid 1,000 mg/10mL SDV 1000 MG IV (07:34)
[2022-05-03 08:21] LABS: Anion Gap 13.7 (5-19); Blood Urea Nitrogen 23 mg/dL (8-23); Calcium 8.7 mg/dL (8.5-10.5); Carbon Dioxide 24 mmol/L (22-29); Chloride 107 mmol/L (98-107); Glucose 140 mg/dL (65-115); Osmolality Calculated 298 mOsm/kg (285-295); Potassium 3.7 mmol/L (3.5-5.1); Sodium 141 mmol/L (136-145)
--- NOTE | 2022-05-03 08:42 | P.OP_ITS ---
Operative Report Date of procedure: May 03, 2022 Pre-op diagnosis: Preop Diagnosis Osteoarthritis right hip Post-op diagnosis: same Post-op diagnosis: Same Procedure done: Right [] total hip arthroplasty Implants: 1) Blossom 54 mm Trident 2 solid back acetabular shell 2) Size 3 Blossom 127 degree neck angle Accolade 2 stem 3} 28mm standard ceramic femoral head 4} Size E MDM metal liner Pathology: none sent Surgeon: James Sarah Anesthesia: Nerve Block (Spinal) Estimated blood loss (mL): 250 Findings: The patient had severe degenerative changes of the right hip with complete obliteration of the articular joint space and visual subchondral bone over the acetabulum and humeral head Condition: stable Disposition: PACU Brief History: See presurgical H&P Procedure: The patient was taken to the operating room and anesthesia provided by the anesthesia service. The patient was placed in the lateral position on a pegboard. A timeout was performed. The patient was draped in the usual fashion. A 15 cm long incision was made beginning just proximal to the greater trochanter and extending posteriorly to a point just distal to the trochanter on the posterior border of the trochanter. Dissection was carried down with electrocautery through the subcutaneous fat to the fascia lelia which was divided proximally and distally with curved scissors. The anterior two thirds of the gluteus medius and minimus were elevated off the hip with electrocautery. The capsule was divided in a H-like fashion. The hip was dislocated and a neck cut made just above the level of the lesser trochanter. Exposure of the acetabulum was facilitated with the acetabular retractors. Remnants of labrum and peripheral osteophytes were removed with electrocautery and a rongeur. A reamer 2 mm under the size the femoral head was utilized to ream medially to the base of the palm and are. Reaming was then increased in 1 mm intervals until a healthy rim a trabecular bone was encountered. The rim was touched with the reamer the size of the final acetabular shell to be placed. A final Trident 2 acetabular cup of the same size as the final reaming was press- fit into place. The ADM liner was secured. Attention was then focused on the femur. The canal was localized with a canal finder. Broaching was then accomplished until a stable broach size was obtained. A trial reduction with the head and neck provided excellent stability. The wound was irrigated with saline and antibiotic solution. The final Blossom Accolade II stem was press-fit into place. The femoral head was placed and the hip was reduced. The hip was brought through range of motion and found to be free of impingement and stable. The anterior capsule was reapproximated with 1 Ethibond. The gluteus medius and minimus were repaired through bone with 5 Ethibond and reinforced with 1 Ethibond. The fascial lelia was closed with a running 0 Stratafix suture. Deep pelvic tissues were closed with 2-0 Stratafix and the skin with a running 4-0 l Stratafix. The skin was covered with a Prineo dressing and op site dressings.
--- NOTE | 2022-05-03 08:48 | XRR_ITS ---
PROCEDURE INFORMATION: Exam: XR Right Hip Exam date and time: 05/03/2022 8:58 AM Age: 82 years old Clinical indication: Device placement; Other: Right hip replacement; Prior surgery; Surgery date: Post-operative (0-2 days); Additional info: Status post right hip replacement TECHNIQUE: Imaging protocol: Radiologic exam of the Right hip. Views: 1 view hip with pelvis when performed. COMPARISON: CT abdomen pelvis w con* [id number] 03/21/2022 6:06 PM FINDINGS: Bones/joints: Postsurgical changes are seen status post noncemented right bipolar hip arthroplasty. There is expected alignment without fracture or loosening. Soft tissues: Soft tissue gas and swelling is seen in the hip region, related to the recent surgery. A sacral stimulator wire is seen overlying the mid right sacrum region. Mild to moderate symphysis pubis and right sacroiliac joint degenerative changes are seen. Notes: Followup radiographs may be obtained for complete assessment. XR/XR hip RT 1V wo/w pel [id number] IMPRESSION: Postsurgical changes of the right hip, as noted above.
[2022-05-03] MEDS: ondansetron 2 mg/ML SDV 2 mL 4 MG IVP (09:07)
--- NOTE | 2022-05-03 09:13 | SUR.PHASEI ---
0855 Bilat SCDs on and placed on pump. Pt has sensation at L2 LEVEL.
[2022-05-03] MEDS: levothyroxine 150 mcg Tablet PO (13:15)
[2022-05-03] MEDS: pantoprazole DR 40 mg Tablet PO (13:15)
[2022-05-03] MEDS: dilTIAZem ER (24HR) 180 mg Capsule PO (13:15)
[2022-05-03] MEDS: aspirin 325 mg EC Tablet PO (13:15)
--- NOTE | 2022-05-03 13:21 | PC.NURSE ---
PTS FAMILY REQUESTED MED TO BE GIVEN AFTER PT RESTED
--- NOTE | 2022-05-03 13:23 | ANE.PACU2 ---
Inpatient post-anesthesia follow up: Airway intact: Yes Vital signs: Temperature 98.0 F Pulse Rate 68 Respiratory Rate 18 Blood Pressure 125/58 Pulse Oximetry 97 Oxygen Delivery Me thod Room Air Oxygen Flow Rate Fraction of Inspir ed Oxygen Hydration adequate: Yes Nausea and vomiting: No Pain level: 1 Mental status: Baseline
[2022-05-03] MEDS: CELEcoxib 200 mg Capsule PO (18:50)
[2022-05-04] MEDS: acetaminophen 500 mg Tablet 1000 MG PO ×2 (02:21→09:21)
[2022-05-04 03:00] LABS: Hemoglobin 10.8 g/dL (11.5-15.3)
[2022-05-04 05:00] VITALS: BP 132/72; PULSE 60; RESP 24; TEMP 36.6; O2SAT 93
[2022-05-04] MEDS: CELEcoxib 200 mg Capsule PO (06:09)
[2022-05-04] MEDS: ceFAZolin 2,000 MG in sodium chloride 0.9% (plus) 50 ML 100 MG IV (06:09)
[2022-05-04 06:20] VITALS: RESP 14
[2022-05-04] MEDS: HYDROmorphone 1 mg/mL INJ 1 mL 0.5 MG IVP (06:20)
--- NOTE | 2022-05-04 06:40 | PC.NURSE ---
PAIN MED WASTE Started to give pt po Dilaudid then realied pill would require splitting a 4mg pill into eighths which is not really feasible. Med was wasted and RN gave IV Dilaudid 0.5mg instead. When Dr makes rounds will ask for something po
--- NOTE | 2022-05-04 07:55 | P.DS_ITS ---
Discharge Providers Date of Admission: 05/03/22 10:21 Date of Discharge: May 04, 2022 Attending Provider at Admission: James Miller MD Attending Provider at Discharge: James Miller MD Primary Care Provider: Jeannine Chan MD Diagnoses at Discharge Discharge Diagnosis (1) Status post total hip replacement, right: Status: Acute Hospital Course Hospital Course The patient tolerated surgery well. They remained hemodynamically stable. They was begun on aspirin and sequential compression dressing for DVT prophylaxis. The patient was mobilized with therapy beginning the day of surgery and by the first postoperative day independent with the walker. As the pain was adequately controlled and they were fully mobile they were discharged home. Physical Exam Narrative: On the day of discharge the hip incision was clean. The incision was free of drainage. They had no particular swelling about the thigh or distal. No distal neurovascular deficits were noted. Discharge Data Studies Completed and Pending Completed Studies During Hospitalization Category Date Time Status XR hip RT 1V wo/w pel [id number] Routine Exams 05/03/22 08:48 Completed Radiology Impressions Hip X-Ray 05/03/22 08:48 IMPRESSION: Postsurgical changes of the right hip, as noted above. Laboratory Results Hgb 10.8 g/dL (11.5-15.3) L 05/04/22 02:26 Sodium 141 mmol/L (136-145) 05/03/22 07:50 Potassium 3.7 mmol/L (3.5-5.1) 05/03/22 07:50 Chloride 107 mmol/L (98-107) 05/03/22 07:50 Carbon Dioxide 24 mmol/L (22-29) 05/03/22 07:50 Anion Gap 13.7 (5-19) 05/03/22 07:50 BUN 23 mg/dL (8-23) 05/03/22 07:50 Creatinine 0.9 mg/dL (0.5-0.9) 05/03/22 07:50 GFR Calculation Not Reportable 05/03/22 07:50 Glucose 140 mg/dL (65-115) H 05/03/22 07:50 Calculated Osmolality 298 mOsm/kg (285-295) H 05/03/22 07:50 Calcium 8.7 mg/dL (8.5-10.5) 05/03/22 07:50 Vitals Last Vital Signs Temp 97.8 F 05/04/22 05:00 Pulse 60 05/04/22 05:00 Resp 14 05/04/22 06:20 BP 132/72 05/04/22 05:00 Pulse Ox 93 05/04/22 05:00 O2 Del Method 05/03/22 11:34 O2 Flow Rate 2 05/03/22 20:00 Discharge Plan Discharge Patient Disposition: Home Condition: Stable Prescriptions: New hydromorphone 4 mg Tablet 0.5 mg PO Q6H PRN (Reason: Pain) 7 Days Qty: 21 0RF acetaminophen 500 mg Tablet 1,000 mg PO Q8H 14 Days Qty: 84 0RF celecoxib 200 mg Capsule 200 mg PO Q12H 14 Days Qty: 28 0RF aspirin 325 mg Tablet,Delayed Release (Dr/Ec) 325 mg PO DAILY 30 Days Qty: 30 0RF Continued omeprazole 40 mg capsule,delayed release(DR/EC) 40 mg PO DAILY 90 Days Qty: 90 1RF levothyroxine 150 mcg tablet 150 mcg PO DAILY 90 Days Qty: 90 0RF diltiazem HCl [DILT-XR] 180 mg capsule,ext.rel 24h degradable 180 mg PO DAILY Qty: 90 0RF Discontinued Aleve 220 mg Tablet 220 mg PO Q12H PRN (Reason: Pain) Discharge Orders: Discharge Order (Routine); Ordered 05/04/22 Ordered By: James Miller Other Ambulatory Orders: DME: Christopher (Order) Location: None Selected Ordered By: James Miller Referrals: Gordo Cedeño FNP [Physician Metallurgical Laboratory Assistant] - 05/25/22 Discharge Diet: Advance as tolerated Discharge Activity: Limit activity as instructed Patient Instructions: Opioid Safety Activity Restrictions/Additional Instructions: Okay to shower. No soaking incision in tub Apply FirstIce up to 20 min/hr for pain and swelling Take Celebrex twice a day for the next 15 days for pain , discontinue other anti-inflammatories Do not take any other anti-inflammatories while taking Celebrex Take Tylenol 500mg (up to 2 tabs) 3 times a day for mild pain Take Dilaudid for breakthrough pain. Exercises per physical therapy. May weight-bear as tolerated on total hip arthroplasty IF HAVE ANY PROBLEMS OR QUESTIONS CALL [facility] [employer] AT AND ASK TO HAVE DR. MILLER PAGED. Discharge Attestations Time Spent in Discharge Care*: other Quality Metrics Clinical Quality Measures [ No reported AMI, CVA or VTE this stay] Coding Level of Care Code Acute Chg [facility] note Diagnoses Status post total hip replacement, right Z96.641
[2022-05-04] MEDS: dilTIAZem ER (24HR) 180 mg Capsule PO (08:40)
[2022-05-04] MEDS: pantoprazole DR 40 mg Tablet PO (08:40)
[2022-05-04] MEDS: aspirin 325 mg EC Tablet PO (08:40)
[2022-05-04] MEDS: levothyroxine 150 mcg Tablet PO (08:41)
[2022-05-04 09:00] VITALS: BP 128/70; PULSE 74; RESP 20; TEMP 36.6; O2SAT 92
[2022-05-04 09:44] VITALS: BP 132/72; PULSE 60; RESP 14; TEMP 36.6; O2SAT 93
--- NOTE | 2022-05-04 10:35 | PC.SOCIAL ---
IMM Update pg 2 of IMM updated and reviewed w/ patients daughter. Copy provided. Copy dated, initialed and placed in chart.
== END 2022-05-04 10:48 | disposition home health service (06) ==
LOC: MEDSURG 12:32
PROVIDERS: Admitting Provider Orthopaedic Surgery; PCP Family Medicine; Visit Provider Orthopaedic Surgery
PROC: (CPT 27130; principal; 2022-05-03 07:00)
DX: M16.11 Unilateral primary osteoarthritis, right hip (principal); I10 Essential (primary) hypertension; K21.9 Gastro-esophageal reflux disease without esophagitis; M19.90 Unspecified osteoarthritis, unspecified site; E03.9 Hypothyroidism, unspecified
CPT/HCPCS: 27130; 36415; 73501; 80048; 85018; 97116; 97161; 97165; 97530; C1713; C1776; G0378; J1100; J1170; J1580; J2370; J2405; J2704; J2765; J3490; J7030

== ENCOUNTER → 2022-05-25 10:49 | Outpatient (BNVA) | payer MEDICARE, SELFPAY | PROVIDERS: PCP Family Medicine; Visit Provider Nurse Practitioner Family | DX: Z96.641 Presence of right artificial hip joint (principal) | CPT/HCPCS: 73502; 99024 ==

== ENCOUNTER → 2022-07-06 09:22 | Outpatient (BNVA) | payer MEDICARE, SELFPAY | PROVIDERS: PCP Family Medicine; Visit Provider Emergency Medicine | DX: R68.89 Other general symptoms and signs (principal); Z20.822 Contact with and (suspected) exposure to COVID-19 | CPT/HCPCS: 87400; 87426 ==

== ENCOUNTER → 2022-08-03 08:44 | Outpatient (BNVA) | payer MEDICARE, SELFPAY | PROVIDERS: PCP Family Medicine; Visit Provider Family Medicine | DX: M17.12 Unilateral primary osteoarthritis, left knee (principal); E03.9 Hypothyroidism, unspecified; I10 Essential (primary) hypertension; Z13.220 Encounter for screening for lipoid disorders; Z13.6 Encounter for screening for cardiovascular disorders | CPT/HCPCS: 73562; 80048; 80061; 84439; 84443; 84481 ==

== ENCOUNTER → 2022-09-02 08:40 | Outpatient (BNVA) | payer MEDICARE, SELFPAY | PROVIDERS: PCP Family Medicine; Visit Provider Nurse Practitioner Family | DX: Z96.641 Presence of right artificial hip joint (principal) | CPT/HCPCS: 73502; 99213 ==

== ENCOUNTER → 2023-03-27 09:53 | Outpatient (BNVA) | payer MEDICARE, SELFPAY | PROVIDERS: PCP Family Medicine; Visit Provider Nurse Practitioner Family | DX: M17.12 Unilateral primary osteoarthritis, left knee (principal); M25.562 Pain in left knee | CPT/HCPCS: 73562 ==

== ENCOUNTER 2023-05-31 10:48 | Emergency (ER) | payer MEDICARE, SELFPAY ==
[2023-05-31 10:54] VITALS: BP 123/57; PULSE 84; RESP 12; TEMP 36.8; O2SAT 93; BMI 31.4
--- NOTE | 2023-05-31 10:54 | ECG_ITS ---
[facility] Test Date: 2023-05-31 Pat Name: Siomara Key Department: Room: Gender: Female Home Health Attendant: : 1940 Requested By: Uzair Joyner Order Number: [id number] Melany MD: Sandoval Carson M.D. Measurements Intervals [place] Rate: 75 P: 7 ID: [id number] QRS: -35 QRSD: 85 T: -4 QT: 361 QTc: 405 Interpretive Statements SINUS RHYTHM WITH OCCASIONAL SUPRAVENTRICULAR PREMATURE COMPLEXES LEFT AXIS DEVIATION [QRS AXIS < -30] PATTERN CONSISTENT WITH PULMONARY DISEASE NONSPECIFIC ST & T-WAVE ABNORMALITY No previous ECG available for comparison Electronically Signed On 05-31-2023 11:07:58 FLOORING GRADER by Sandoval Carson M.D. [id number]
--- NOTE | 2023-05-31 11:04 | XR_ITS ---
WS: [id number] Portable AP upright chest, 05/31/2023 Clinical Data: dyspnea/cough Comparison: None. Findings: No nodules, masses or effusions are seen. The heart is normal. The pulmonary vascularity is not increased. No pneumonia or pneumothorax is seen. There is a hiatal hernia behind the heart. The aortic arch and descending thoracic aorta show tortuosity and calcification. Impression: Atherosclerosis.
--- NOTE | 2023-05-31 11:05 | ED_ITS ---
HPI - Nausea/Vomiting/Diarrhea General: Chief complaint: Nausea/Vomiting/Diarrhea Stated complaint: N/V/D Low BP Time Seen by Provider: 05/31/23 10:54 Source: patient Mode of arrival: EMS History of Present Illness: 83-year-old female presents emergency room complaining of nausea vomiting and diarrhea. She seen in the clinic today complaining of persistent myalgias nausea vomiting diarrhea had a blood pressure 80/54. No medication on him times [place] no signs MD elicited complaint: nausea, vomiting and diarrhea Onset (ago): day(s) Description of vomiting: watery and bilious Description of diarrhea: watery Associated nausea: No Associated symtoms: Reports no associated symptoms and other; Denies altered mental status, anxiety, bloating, change in vision, chest pain, cough, diaphoresis, decreased urine output, dizziness, dysuria, epistaxis, fat igue, fecal incontinence, fevers/chills, headache(s), anorexia, malaise, myalgias, nausea, numbness, palpitations, rash, short of breath, syncope, tenesmus, tinnitus or weakness Review of Systems Const: Denies: fever(s), chills, fatigue, malaise or diaphoresis Eyes: Denies: change in vision ENMT: Denies: tinnitus or epistaxis Card: Denies: chest pain, palpitations or syncope Resp: Denies: dyspnea GI: Denies: abdominal pain, nausea, bloating or fecal incontinence : Denies: flank pain, dysuria, urinary frequency or urinary urgency Musc: Denies: neck pain or back pain Skin/Breast: Denies: rash Neuro: Denies: headache(s) or dizziness Psych: Denies: anxiety PFSH ED PFSH: Medical History Degenerative arthritis of hip GERD (gastroesophageal reflux disease) Hypertension Hypothyroid Surgical History History of cholecystectomy Social History Smoking and tobacco/nicotine status: never used tobacco/nicotine Substance/Drug Use: never Current gender identity: Female Physical Exam Const: COMMON NORMALS: no acute distress EXAM LIMITATIONS: no altered men kunal status GENERAL APPEARANCE: cooperative and comfortable ORIENTATION/CONSCIOUSNESS: Yes awake, Yes oriented to person, Yes oriented to place and Yes oriented to time HENMT: COMMON NORMALS: normocephalic, atraumatic and hearing grossly normal bilaterally HEAD & SCALP: normocephalic and atraumatic Resp: COMMON NORMALS: normal respiratory effort, No retractions, No use of accessory muscles and clear to auscultation bilaterally AUSCULTATION: clear to auscultation bilaterally Cardio: COMMON NORMALS: regular rate, regular rhythm and No murmurs present (Cardio) RATE: regular rate RHYTHM: regular rhythm GI: COMMON NORMALS: Soft to palpation and No hepatosplenomegaly present AUSCULTATION: Yes normoactive bowel sounds PALPATION: Yes Soft to palpation, No Tenderness to palpation present (GI), No Guarding due to palpation present (GI) and Yes No hepatosplenomegaly present Extremity: COMMON NORMALS: normal to inspection, capillary refill normal, no clubbing, cyanosis or edema, no calf tenderness and no pedal edema Neuro: SENSORIUM/ORIENTATION: Yes oriented to person, Yes oriented to place and Yes oriented to time Skin: COMMON NORMALS: no rashes or lesions noted GENERAL SKIN EXAM: no rashes or lesions noted Course Vital Signs: Vital signs: Vital Signs Temperature 98.2 F 05/31/23 10:54 Pulse Rate 81 05/31/23 13:33 Respiratory Rate 18 05/31/23 11:25 Blood Pressure 106/61 05/31/23 13:33 Pulse Oximetry 94 05/31/23 11:25 Oxygen Delivery Me thod Room Air 05/31/23 11:25 MDM - Nausea/Vomiting/Diarrhea Medical Decision Making Gastroenteritis with diarrhea. Supportive cares Tylenol and ibuprofen clear liquid diet advance as tolerated. She has mild hypokalemia which we will give potassium supplement 4. Follow-up with primary care Medical Records I reviewed the patient's medical records. Lab Data I reviewed the patient's lab results. 05/31/23 11:28 05/31/23 11:28 Laboratory Results WBC 8.62 10^3/uL (3.29-11.43) 05/31/23 11:28 RBC 5.04 10^6/uL (3.85-5.65) 05/31/23 11:28 Hgb 13.50 g/dL (11.27-16.99) 05/31/23 11:28 Hct 43.2 % (36-47) 05/31/23 11:28 MCV 85.7 fl (85-98) 05/31/23 11:28 MCH 26.8 pg (27-33) L 05/31/23 11:28 MCHC 31.3 g/dL (30-55) 05/31/23 11:28 RDW 13.6 % (12.1-15.1) 05/31/23 11:28 Plt Count 256 10^3/cmm (157-399) 05/31/23 11:28 MPV 11.6 fL (7.4-10.4) H 05/31/23 11:28 Neut % (Auto) 80.4 % 05/31/23 11:28 Lymph % (Auto) 5.8 % 05/31/23 11:28 [place] % (Auto) 13.3 % 05/31/23 11:28 Eos % (Auto) 0.1 % 05/31/23 11:28 Baso % (Auto) 0.3 % 05/31/23 11:28 Neut # (Auto) 6.92 10^3/uL (1.8-7.7) 05/31/23 11:28 Lymph # (Auto) 0.5 10^3/uL (0.8-4.8) L 05/31/23 11:28 [place] # (Auto) 1.2 10^3/uL (0.2-0.9) H 05/31/23 11:28 Eos # (Auto) 0.0 10^3/uL (0.0-0.8) 05/31/23 11:28 Baso # (Auto) 0.0 10^3/uL (0.0-0.1) 05/31/23 11:28 Nucleated RBC % (auto) 0 % 05/31/23 11:28 Nucleated RBCs # 0.0 /100WBC 05/31/23 11:28 Sodium 144 mmol/L (136-145) 05/31/23 11:28 Potassium 3.3 mmol/L (3.5-5.1) L 05/31/23 11:28 Chloride 111 mmol/L (98-107) H 05/31/23 11:28 Carbon Dioxide 18 mmol/L (22-29) L 05/31/23 11:28 Anion Gap 18.3 (5-19) 05/31/23 11:28 BUN 24 mg/dL (8-23) H 05/31/23 11:28 Creatinine 1.5 mg/dL (0.5-0.9) H 05/31/23 11:28 GFR Calculation Not Reportable 05/31/23 11:28 Glucose 127 mg/dL (65-115) H 05/31/23 11:28 Calculated Osmolality 304 mOsm/kg (285-295) H 05/31/23 11:28 Calcium 9.2 mg/dL (8.5-10.5) 05/31/23 11:28 Total Bilirubin 0.3 mg/dL (0.15-1.2) 05/31/23 11:28 AST 16 U/L (0-32) 05/31/23 11:28 ALT 11 U/L (0-33) 05/31/23 11:28 Alkaline Phosphatase 113 U/L (35-105) H 05/31/23 11:28 Total Protein 6.7 g/dL (6.6-8.7) 05/31/23 11:28 Albumin 4.2 g/dL (3.5-5.2) 05/31/23 11:28 Globulin 2.5 g/dL (1.3-4.6) 05/31/23 11:28 Urine Color Yellow (Yellow) 05/31/23 13:10 Urine Appearance Clear (CLEAR) 05/31/23 13:10 Urine pH 5 (5-7) 05/31/23 13:10 Ur Specific [place] 1.020 (1.005-1.030) 05/31/23 13:10 Urine Protein 1+ (Negative) H 05/31/23 13:10 Urine Glucose (UA) Norm (Normal) 05/31/23 13:10 Urine Ketones 1+ (Negative) H 05/31/23 13:10 Urine Blood Neg (Negative) 05/31/23 13:10 Urine Nitrate Negative (Negative) 05/31/23 13:10 Urine Bilirubin 1+ (Negative) H 05/31/23 13:10 Urine Urobilinogen Neg mg/dL (Negative) 05/31/23 13:10 Ur Leukocyte Esterase Trace (Negative) H 05/31/23 13:10 Urine RBC Rare /hpf (0-2) 05/31/23 13:10 Urine WBC 0-4 /hpf (0-5) H 05/31/23 13:10 Ur Squamous Epith Cells 0-4 /hpf (0-5) H 05/31/23 13:10 Amorphous Sediment Not Reportable 05/31/23 13:10 Urine Bacteria 1+ /hpf (NONE) H 05/31/23 13:10 Hyaline Casts 10-15 /lpf H 05/31/23 13:10 Coarse Granular Casts 0-4 /lpf H 05/31/23 13:10 Urine Mucus Trace /hpf 05/31/23 13:10 All radiology interpretation(s) finalized by discharge Discharge Plan Discharge Patient Disposition: Home Clinical Impression: Gastroenteritis Condition: Stable Prescriptions: New ondansetron HCl 4 mg tablet 4 mg PO Q6H PRN (Reason: nausea and vomiting) Qty: 20 0RF No Action omeprazole 40 mg capsule,delayed release(DR/EC) 40 mg PO DAILY 90 Days Qty: 90 1RF losartan 50 mg tablet 50 mg PO DAILY 90 Days Qty: 90 1RF levothyroxine 150 mcg tablet 150 mcg PO DAILY 90 Days Qty: 90 1RF diltiazem HCl 240 mg capsule,ext.rel 24h degradable 240 mg PO DAILY 90 Days Qty: 90 1RF Imodium 2 mg Capsule 2 mg PO Q6H PRN (Reason: Diarrhea) Tylenol Arthritis 650 mg Tablet Extended Release 650 mg PO Q8H PRN (Reason: Pain) Discharge Orders: Discharge ED (Routine); Ordered 05/31/23 Ordered By: Uzair Rogers Referrals: Jeannine Chan MD [Primary Care Provider] - Discharge Diet: Clear Liquid Discharge Activity: Increase activity as tolerated Patient Instructions: Clear Liquid Diet (ED), Gastroenteritis (ED), Opioid Safety, Pain Management Activity Restrictions/Additional Instructions: Thank you for choosing [facility] for your healthcare needs today. Please realize this is an emergency room and that we are providing you with a medical screening exam and this may not be complete and all inclusive of all the testing and or work up that you may need to determine your ailment or severity of your illness. It is very important that you follow up as instructed or that you return to the Emergency Department should you have concerns or if your condition changes or worsens in any way. You were seen today for diarrhea. Your exam and laboratory tests are unremarkable recommend you increase fluid intake clear liquid diet for the next 24 to 48 hours then advance as tolerated. Coding Level of Care Code ED State Assessed Properties Director for Alvaro Sewell
[2023-05-31 11:25] VITALS: BP 115/71; PULSE 81; RESP 18; O2SAT 94
[2023-05-31 11:34] LABS: Basophils % 0.3 %; Eosinophils % 0.1 %; Hematocrit 43.2 % (36-47); Lymphocytes # 0.5 10^3/uL (0.8-4.8); Lymphocytes % 5.8 %; Mean Corpuscular HGB Conc 31.3 g/dL (30-55); Mean Corpuscular Hemoglobin 26.8 pg (27-33); Mean Corpuscular Volume 85.7 fl (85-98); Mean Platelet Volume 11.6 fL (7.4-10.4); Monocytes # 1.2 10^3/uL (0.2-0.9); Monocytes % 13.3 %; Neutrophils # 6.92 10^3/uL (1.8-7.7); Neutrophils % 80.4 %; Nucleated Red Blood Cells % 0 %; Platelet Count 256 10^3/cmm (157-399); Red Blood Count 5.04 10^6/uL (3.85-5.65); Red Cell Distribution Width 13.6 % (12.1-15.1); White Blood Count 8.62 10^3/uL (3.29-11.43)
[2023-05-31 11:56] LABS: Alanine Aminotransferase 11 U/L (0-33); Albumin Level 4.2 g/dL (3.5-5.2); Alkaline Phosphatase 113 U/L (35-105); Anion Gap 18.3 (5-19); Aspartate Amino Transferase 16 U/L (0-32); Blood Urea Nitrogen 24 mg/dL (8-23); Calcium 9.2 mg/dL (8.5-10.5); Carbon Dioxide 18 mmol/L (22-29); Chloride 111 mmol/L (98-107); Globulin 2.5 g/dL (1.3-4.6); Glucose 127 mg/dL (65-115); Osmolality Calculated 304 mOsm/kg (285-295); Potassium 3.3 mmol/L (3.5-5.1); Sodium 144 mmol/L (136-145); Total Bilirubin 0.3 mg/dL (0.15-1.2); Total Protein 6.7 g/dL (6.6-8.7)
[2023-05-31] MEDS: ondansetron 2 mg/ML SDV 2 mL 4 MG IVP (11:59)
[2023-05-31 13:33] VITALS: BP 106/61; PULSE 81
[2023-05-31 13:48] LABS: Blood Urine Neg (Negative); Glucose Urine UA Norm (Normal); Ketones Urine 1+ (Negative); Nitrate Urine Negative (Negative); Protein Urine 1+ (Negative); Urine Appearance Clear (CLEAR); Urine Color Yellow (Yellow); pH Urine 5 (5-7)
[2023-05-31 13:49] LABS: Add Urine Culture? No; Add Urine Microscopic? YES; Bacteria Urine 1+ /hpf; Bilirubin Urine 1+ (Negative); Coarse Granular Casts Urine 0-4 /lpf; Leukocyte Esterase Urine Trace (Negative); Mucus Urine TRACE /hpf; RBC Urine RARE /hpf (0-2); Squamous Epithelial Cell Urine 0-4 /hpf (0-5); Urobilinogen Urine Neg (Negative); WBC Urine 0-4 /hpf (0-5)
[2023-05-31] MEDS: sodium chloride 0.9% 1,000 ML 999 ML IV (13:55)
[2023-05-31] MEDS: potassium chloride oral liq 20 mEq/15 mL UDC 40 MEQ PO (14:51)
== END 2023-05-31 14:52 | disposition home or self-care (01) ==
PROVIDERS: Emergency Provider Family Medicine; PCP Family Medicine
DX: K52.9 Noninfective gastroenteritis and colitis, unspecified (principal); I10 Essential (primary) hypertension; Z11.52 Encounter for screening for COVID-19
CPT/HCPCS: 36415; 71045; 80053; 81001; 85025; 87400; 87426; 93005; 96361; 96374; 99285; J2405; J7030

== ENCOUNTER → 2023-06-12 09:23 | Outpatient (BNVA) | payer MEDICARE, SELFPAY | PROVIDERS: PCP Family Medicine; Visit Provider Nurse Practitioner Family | DX: R19.7 Diarrhea, unspecified (principal) | CPT/HCPCS: 80053; 83630; 85025; 87045; 87427; 87449; 87493 ==

== ENCOUNTER 2023-06-13 17:54 | Emergency (ER) | payer MEDICARE, SELFPAY ==
[2023-06-13 18:08] VITALS: BP 114/63; PULSE 69; RESP 16; TEMP 36.7; O2SAT 95; BMI 31.1
--- NOTE | 2023-06-13 18:26 | ED_ITS ---
HPI - Recheck/Abnormal Lab/Rx General: Chief Complaint: Recheck/Abnormal Lab/Rx Stated Complaint: low potassium, dr sent Time Seen by Provider: 06/13/23 18:25 History of Present Illness: 83-year-old female comes in today for complaints of nausea vomiting and diarrhea on and off for 4 weeks. Patient reports the worst part is the liquidy stools that she has frequently. Patient is able to hold fluids down with the use of Zofran. Patient was seen yesterday at primary care and stools were collected and sent for culture and PCR testing. Review of the record noted that it was positive for lactoferrin. Patient had just completed a round of antibiotics for urinary tract infection. Patient does have a history of colitis, with similar symptoms. Patient appears in no pain. Patient appears nontoxic. Patient's chronic medical problems include high blood pressure, GERD, hiatal hernia, surgeries include hip replacement, total knee replacement, hysterectomy, gallbladder removal, bladder stimulator. Patient was referred to the ER due to labs from yesterday showing a potassium of 2.7. Review of Systems General: Reports: 10 or more systems reviewed and unremarkable except in HPI and below Const: Denies: fever(s) ENMT: Denies: throat pain Card: Denies: chest pain Resp: Denies: dyspnea GI: Reports: nausea, vomiting and diarrhea; Denies: constipation : Denies: difficulty voiding Musc: Denies: neck pain or back pain Skin/Breast: Denies: rash Neuro: Denies: headache(s) PFSH ED PFSH: Medical History Degenerative arthritis of hip GERD (gastroesophageal reflux disease) Hypertension Hypothyroid Surgical History History of cholecystectomy Social History Smoking and tobacco/nicotine status: never used tobacco/nicotine Substance/Drug Use: never Current gender identity: Female Physical Exam Const: COMMON NORMALS: alert HENMT: COMMON NORMALS: normocephalic HEAD & SCALP: normocephalic Neck/C-Spine: COMMON NORMALS: full ROM Resp: COMMON NORMALS: normal respiratory effort Cardio: COMMON NORMALS: regular rate RATE: regular rate GI: COMMON NORMALS: Soft to palpation PALPATION: Yes Soft to palpation and Yes Tenderness to palpation present (GI) (Mild generalized) : COMMON NORMALS: Yes no CVA tenderness BLADDER/KIDNEY EXAM: Yes no CVA tenderness Back/Pelvis: COMMON NORMALS: no CVA tenderness Extremity: COMMON NORMALS: normal to inspection Neuro: SENSORIUM/ORIENTATION: Yes alert Skin: COMMON NORMALS: turgor normal GENERAL SKIN EXAM: turgor normal Course Vital Signs: Vital signs: Vital Signs Temperature 98.0 F 06/13/23 18:08 Pulse Rate 68 06/13/23 22:14 Respiratory Rate 16 06/13/23 18:08 Blood Pressure 114/59 06/13/23 22:14 Pulse Oximetry 98 06/13/23 22:14 Oxygen Delivery Me thod Room Air 06/13/23 22:14 MDM - Recheck/Abnormal Lab/Rx Medical Decision Making 83-year-old female comes in today with abdominal discomfort, nausea vomiting diarrhea, and decreased potassium. Patient reports nausea vomiting and diarrhea for last 4 weeks. Patient was seen yesterday and had stools collected and labs done. Patient was notified by primary care that her potassium was 2.7 and was referred to the ER for further evaluation and treatment. Patient does have a history of prior colitis. Review of the medical record noted that stool for lactoferrin was positive. Exam was unremarkable. Bowel sounds are present. Skin is warm and dry. Patient appears nontoxic. Vital signs are normal. Differential diagnosis includes dehydration, hypokalemia, infectious colitis, inflammatory colitis. CBC noted no significant abnormalities. CMP showed a potassium of 3.1, and creatinine 1.2. CT scan of the abdomen pelvis noted no significant abnormalities. Patient's had white blood cells in her stool. C. difficile and cultures were pending on discharge. Due to the white blood cells in her stool I am suspicious for infectious diarrhea we will go ahead and treat with Cipro and Flagyl. Patient agreed to plan of treatment and need for follow- up or return to the ER for worsening symptoms. Patient was able to tolerate oral potassium and the use of antiemetics allow her to swallow fluids. I discussed the use of Metamucil to help bulk the stool and slow diarrhea and also recommended Lomotil for severe diarrhea. Patient reported understanding of care plan and need for follow-up or return to ER. Patient was stable and discharged home. Lab Data 06/13/23 18:51 06/13/23 18:51 Radiology Impressions Abdomen/Pelvis CT 06/13/23 18:33 IMPRESSION: 1. Large hiatal hernia containing the entire stomach. 2. No bowel obstruction or inflammatory process associated with the bowel. 3. No free air or significant free fluid in the abdomen or pelvis. 4. The appendix images normally. Laboratory Results WBC 10.35 10^3/uL (3.29-11.43) 06/13/23 18:51 RBC 4.35 10^6/uL (3.85-5.65) 06/13/23 18:51 Hgb 11.70 g/dL (11.27-16.99) 06/13/23 18:51 Hct 39.2 % (36-47) 06/13/23 18:51 MCV 90.1 fl (85-98) 06/13/23 18:51 MCH 26.9 pg (27-33) L 06/13/23 18:51 MCHC 29.8 g/dL (30-55) L 06/13/23 18:51 RDW 15.2 % (12.1-15.1) H 06/13/23 18:51 Plt Count 313 10^3/cmm (157-399) 06/13/23 18:51 MPV 11.6 fL (7.4-10.4) H 06/13/23 18:51 Neut % (Auto) 73.1 % 06/13/23 18:51 Lymph % (Auto) 13.9 % 06/13/23 18:51 [place] % (Auto) 11.6 % 06/13/23 18:51 Eos % (Auto) 0.8 % 06/13/23 18:51 Baso % (Auto) 0.4 % 06/13/23 18:51 Neut # (Auto) 7.57 10^3/uL (1.8-7.7) 06/13/23 18:51 Lymph # (Auto) 1.4 10^3/uL (0.8-4.8) 06/13/23 18:51 [place] # (Auto) 1.2 10^3/uL (0.2-0.9) H 06/13/23 18:51 Eos # (Auto) 0.1 10^3/uL (0.0-0.8) 06/13/23 18:51 Baso # (Auto) 0.0 10^3/uL (0.0-0.1) 06/13/23 18:51 Nucleated RBC % (auto) 0 % 06/13/23 18:51 Nucleated RBCs # 0.0 /100WBC 06/13/23 18:51 Sodium 138 mmol/L (136-145) 06/13/23 18:51 Potassium 3.1 mmol/L (3.5-5.1) L 06/13/23 18:51 Chloride 111 mmol/L (98-107) H 06/13/23 18:51 Carbon Dioxide 15 mmol/L (22-29) L 06/13/23 18:51 Anion Gap 15.1 (5-19) 06/13/23 18:51 BUN 22 mg/dL (8-23) 06/13/23 18:51 Creatinine 1.2 mg/dL (0.5-0.9) H 06/13/23 18:51 GFR Calculation Not Reportable 06/13/23 18:51 Glucose 92 mg/dL (65-115) 06/13/23 18:51 Calculated Osmolality 289 mOsm/kg (285-295) 06/13/23 18:51 Calcium 8.4 mg/dL (8.5-10.5) L 06/13/23 18:51 Total Bilirubin 0.4 mg/dL (0.15-1.2) 06/13/23 18:51 AST 11 U/L (0-32) 06/13/23 18:51 ALT 9 U/L (0-33) 06/13/23 18:51 Alkaline Phosphatase 101 U/L (35-105) 06/13/23 18:51 Total Protein 6.0 g/dL (6.6-8.7) L 06/13/23 18:51 Albumin 3.5 g/dL (3.5-5.2) 06/13/23 18:51 Globulin 2.5 g/dL (1.3-4.6) 06/13/23 18:51 Lipase 19 U/L (13-60) 06/13/23 18:51 All radiology interpretation(s) finalized by discharge Discharge Plan Discharge Patient Disposition: Home Clinical Impression: Hypokalemia Diarrhea Qualifiers: Diarrhea type: presumed infectious Qualified Code(s): R19.7 - Diarrhea, unsp ecified Condition: Stable Prescriptions: New ciprofloxacin HCl 500 mg tablet 500 mg PO BID Qty: 10 0RF metronidazole 500 mg tablet 500 mg PO BID 7 Days Qty: 14 0RF Lomotil 2.5-0.025 mg tablet 1 tab PO Q6H PRN (Reason: diarrhea) Qty: 10 0RF potassium chloride 10 mEq capsule, extended release 10 meq PO BID Qty: 10 0RF No Action omeprazole 40 mg capsule,delayed release(DR/EC) 40 mg PO DAILY 90 Days Qty: 90 1RF losartan 50 mg tablet 50 mg PO DAILY 90 Days Qty: 90 1RF levothyroxine 150 mcg tablet 150 mcg PO DAILY 90 Days Qty: 90 1RF diltiazem HCl 240 mg capsule,ext.rel 24h degradable 240 mg PO DAILY 90 Days Qty: 90 1RF Imodium 2 mg Capsule 2 mg PO Q6H PRN (Reason: Diarrhea) Tylenol Arthritis 650 mg Tablet Extended Release 650 mg PO Q8H PRN (Reason: Pain) ondansetron HCl 4 mg tablet 4 mg PO Q6H PRN (Reason: nausea and vomiting) Qty: 20 0RF Discharge Orders: Discharge ED (Routine); Ordered 06/13/23 Ordered By: Robi Marr Referrals: Jeannine Chan MD [Primary Care Provider] - Discharge Diet: Advance as tolerated Discharge Activity: Increase activity as tolerated Patient Instructions: Opioid Safety, Pain Management Activity Restrictions/Additional Instructions: I recommend a bland diet consisting of boiled chicken, bananas, rice, apples, toast. Make sure to drink plenty of water and fluids. Try electrolyte solution such as Pedialyte to help maintain electrolytes especially with diarrhea. Take antibiotics as directed. Use medication as needed for nausea. Try Metamucil 2- 3 times a day dosing to help bulk up the stool and decrease diarrhea. Use Lomotil for further concerns of diarrhea. Return to ER for worsening symptoms such as blood in vomit or stool, fever greater than 100.4, severe abdominal pain, or new concerns. Coding Level of Care Code ED Inhalation Therapy Aides Teacher for Alvaro Sewell
--- NOTE | 2023-06-13 18:33 | CTR_ITS ---
PROCEDURE INFORMATION: Exam: CT Abdomen And Pelvis With Contrast Exam date and time: 06/13/2023 7:03 PM Age: 83 years old Clinical indication: Other: Diarrhea x 4 weeks; Prior surgery; Surgery date: 6+ months; Surgery type: Gb, hyster, spine stimulator; Additional info: N/v/d TECHNIQUE: Imaging protocol: Computed tomography of the abdomen and pelvis with contrast. Radiation optimization: All CT scans at this facility use at least one of these dose optimization techniques: automated exposure control; mA and/or kV adjustment per patient size (includes targeted exams where dose is matched to clinical indication); or iterative reconstruction. Contrast material: OMNI 350; Contrast volume: 100 ml; Contrast route: INTRAVENOUS (IV); REPORTING DATA: Count of CT and Cardiac NM exams in prior 12 months: This patient has received 0 known CTs and 0 known cardiac nuclear medicine studies in the 12 months prior to the current study. COMPARISON: CT abdomen pelvis w con* [id number] 03/21/2022 6:06 PM RADIATION DOSE METRICS: Total DLP (mGy-cm): 617.33 FINDINGS: Heart: Severe mitral annular calcifications. Liver: Normal. No mass. Gallbladder and bile ducts: The gallbladder is absent. Pancreas: Normal. No ductal dilation. Spleen: Normal. No splenomegaly. Adrenal glands: Normal. No mass. Kidneys and ureters: Normal. No hydronephrosis. Stomach and bowel: Large hiatal hernia containing the entire stomach. Appendix: No evidence of appendicitis. Intraperitoneal space: Unremarkable. No free air. No significant fluid collection. Vasculature: Unremarkable. No abdominal aortic aneurysm. Lymph nodes: Unremarkable. No enlarged lymph nodes. Urinary bladder: Unremarkable as visualized. Reproductive: Unremarkable as visualized. Bones/joints: Multilevel severe degenerative disc disease in the lumbar spine Soft tissues: Unremarkable. CT/CT abdomen pelvis w con* [id number] IMPRESSION: 1. Large hiatal hernia containing the entire stomach. 2. No bowel obstruction or inflammatory process associated with the bowel. 3. No free air or significant free fluid in the abdomen or pelvis. 4. The appendix images normally.
[2023-06-13] MEDS: iohexol 350 mg/mL 500 mL Btl (per mL) IV (19:06)
[2023-06-13 19:17] LABS: Basophils % 0.4 %; Eosinophils # 0.1 10^3/uL (0.0-0.8); Eosinophils % 0.8 %; Hematocrit 39.2 % (36-47); Lymphocytes # 1.4 10^3/uL (0.8-4.8); Lymphocytes % 13.9 %; Mean Corpuscular HGB Conc 29.8 g/dL (30-55); Mean Corpuscular Hemoglobin 26.9 pg (27-33); Mean Corpuscular Volume 90.1 fl (85-98); Mean Platelet Volume 11.6 fL (7.4-10.4); Monocytes # 1.2 10^3/uL (0.2-0.9); Monocytes % 11.6 %; Neutrophils # 7.57 10^3/uL (1.8-7.7); Neutrophils % 73.1 %; Nucleated Red Blood Cells % 0 %; Platelet Count 313 10^3/cmm (157-399); Red Blood Count 4.35 10^6/uL (3.85-5.65); Red Cell Distribution Width 15.2 % (12.1-15.1); White Blood Count 10.35 10^3/uL (3.29-11.43)
[2023-06-13] MEDS: potassium chloride oral liq 20 mEq/15 mL UDC 40 MEQ PO (19:27)
[2023-06-13] MEDS: sodium chloride 0.9% 1,000 ML 999 ML IV (19:29)
[2023-06-13 19:31] LABS: Alanine Aminotransferase 9 U/L (0-33); Albumin Level 3.5 g/dL (3.5-5.2); Alkaline Phosphatase 101 U/L (35-105); Anion Gap 15.1 (5-19); Aspartate Amino Transferase 11 U/L (0-32); Blood Urea Nitrogen 22 mg/dL (8-23); Calcium 8.4 mg/dL (8.5-10.5); Carbon Dioxide 15 mmol/L (22-29); Chloride 111 mmol/L (98-107); Globulin 2.5 g/dL (1.3-4.6); Glucose 92 mg/dL (65-115); Lipase 19 U/L (13-60); Osmolality Calculated 289 mOsm/kg (285-295); Potassium 3.1 mmol/L (3.5-5.1); Sodium 138 mmol/L (136-145); Total Bilirubin 0.4 mg/dL (0.15-1.2)
[2023-06-13] MEDS: lidocaine 1% 5 ML in potassium chloride premix 100 ML 52.5 ML IV (19:32)
[2023-06-13 20:06] VITALS: BP 96/49; PULSE 72; O2SAT 93
[2023-06-13] MEDS: diphenoxylate/atropine Tablet 2 TAB PO (20:52)
[2023-06-13] MEDS: metroNIDAZOLE 500 MG Tablet PO (20:52)
[2023-06-13] MEDS: ciprofloxacin 500 mg Tablet PO (20:52)
[2023-06-13 21:24] VITALS: BP 111/58; PULSE 67; O2SAT 97
[2023-06-13 22:14] VITALS: BP 114/59; PULSE 68; O2SAT 98
[2023-06-15 14:49] LABS: Clostridium Difficile PCR NOT DETECTED (NOT DETECTED)
== END 2023-06-13 23:07 | disposition home or self-care (01) ==
PROVIDERS: Emergency Provider Nurse Practitioner Family; PCP Family Medicine
DX: E87.6 Hypokalemia (principal); R19.7 Diarrhea, unspecified; K44.9 Diaphragmatic hernia without obstruction or gangrene; I10 Essential (primary) hypertension
CPT/HCPCS: 36415; 74177; 80053; 83630; 83690; 85025; 87045; 87427; 87449; 87493; 96374; 99285; J3480; J7030; Q9967

== ENCOUNTER → 2023-06-17 11:55 | Outpatient (BNVA) | payer MEDICARE, SELFPAY | PROVIDERS: PCP Family Medicine; Visit Provider Family Medicine | DX: E87.6 Hypokalemia (principal); I10 Essential (primary) hypertension | CPT/HCPCS: 80048; 83735 ==

== ENCOUNTER → 2023-06-30 08:36 | Outpatient (BNVA) | payer MEDICARE, SELFPAY | PROVIDERS: PCP Family Medicine; Visit Provider Family Medicine | DX: I10 Essential (primary) hypertension (principal); E03.9 Hypothyroidism, unspecified; N39.0 Urinary tract infection, site not specified | CPT/HCPCS: 80048; 80061; 84439; 84443; 84481 ==

== ENCOUNTER → 2023-12-08 09:38 | Outpatient (BNVA) | payer MEDICARE, SELFPAY | PROVIDERS: PCP Family Medicine; Referring Provider Family Medicine; Visit Provider Dermatology | DX: D22.4 Melanocytic nevi of scalp and neck (principal); L82.1 Other seborrheic keratosis; L82.0 Inflamed seborrheic keratosis; L57.8 Other skin changes due to chronic exposure to nonionizing radiation; Z85.828 Personal history of other malignant neoplasm of skin; L81.4 Other melanin hyperpigmentation; M20.41 Other hammer toe(s) (acquired), right foot | CPT/HCPCS: 17110; 99203 ==

== ENCOUNTER → 2024-01-16 15:16 | Outpatient (BNVA) | payer MEDICARE, SELFPAY | PROVIDERS: PCP Family Medicine; Referring Provider Family Medicine; Visit Provider Nurse Practitioner | DX: M17.12 Unilateral primary osteoarthritis, left knee | CPT/HCPCS: 36415; 73560; 73565; 80053; 81001; 85025; 99214 ==

== ENCOUNTER 2024-01-23 10:37 | Outpatient (CLI) | payer MEDICARE, SELFPAY ==
--- NOTE | 2024-01-23 11:00 | CT_ITS ---
WS: [id number] CT LEFT knee, noncontrast HISTORY: Pre-surgical planning. TECHNIQUE: Protocol for MARIOLA total knee replacement has been obtained. This includes axial imaging th rough the LEFT hip, LEFT knee and LEFT ankle. DLP: 956.80 mGy.cm COMPARISON: Radiograph 01/16/2024 Stimulator device in the pelvis may be a bladder stimulator. Prior RIGHT hip arthroplasty. No pelvic fracture. No destructive bone lesions. Severe tricompartment osteoarthritis with osteophytes and joint space narrowing. No acute fracture. S mall suprapatellar joint effusion. Unremarkable LEFT ankle. Prior RIGHT knee arthroplasty noted on the localizer imaging. CT/CT knee LT [facility] [id number] IMPRESSION: CT imaging provided for MARIOLA robotic LEFT total knee replacement.
== END 2024-01-23 10:38 | disposition home or self-care (01) ==
LOC: RAD 10:38
PROVIDERS: PCP Family Medicine; Visit Provider Nurse Practitioner
DX: M17.12 Unilateral primary osteoarthritis, left knee (principal); Z96.641 Presence of right artificial hip joint; M25.762 Osteophyte, left knee; M25.861 Other specified joint disorders, right knee; Z96.651 Presence of right artificial knee joint
CPT/HCPCS: 73700

== ENCOUNTER 2024-02-07 16:19 | Observation (INO) | payer MEDICARE, SELFPAY ==
[2024-02-07] VITALS (44 sets, daily range): BP systolic 122–165; BP diastolic 48–97; PULSE 58–94; RESP 8–23; TEMP 36.2–36.5; O2SAT 92–100; BMI 28.6; BMI 30.2
--- NOTE | 2024-02-07 11:11 | P.HPUD_ITS ---
Surgery/Procedure H&P Update DATE OF PROCEDURE: February 07, 2024 DATE H&P PERFORMED: 03/09/22 H&P UPDATE INFORMATION: I have reviewed H&P completed within last 30 days, I have examined patient prior to procedure, No changes to prior documentation and H[place] is in [facility] on date indicated PLANNED PROCEDURE: Operation Date: 02/07/24 12:40 Proposed Procedures p Usman Robot Total Knee Arthroplasty(Left) - Jailene Guzman MD Related Problem List Diagnoses (1) Primary osteoarthritis of left knee:
[2024-02-07] MEDS: CELEcoxib 200 mg Capsule 400 MG PO (11:49)
[2024-02-07] MEDS: gabapentin 300 mg Capsule PO (11:50)
[2024-02-07] MEDS: sodium chloride 0.9% 1,000 ML 30 ML IV (12:00)
[2024-02-07] MEDS: acetaminophen 1,000 MG/100 ML PIGGYBACK 400 MG IV ×2 (12:00→21:16)
[2024-02-07 12:07] LABS: Anion Gap 18.4 (5-19); Blood Urea Nitrogen 26 mg/dL (8-23); Calcium 9.3 mg/dL (8.5-10.5); Carbon Dioxide 20 mmol/L (22-29); Chloride 106 mmol/L (98-107); Glucose 99 mg/dL (65-115); Osmolality Calculated 295 mOsm/kg (285-295); Potassium 4.4 mmol/L (3.5-5.1); Sodium 140 mmol/L (136-145)
[2024-02-07] MEDS: ondansetron 2 mg/ML SDV 2 mL 4 MG IVP (12:08)
--- NOTE | 2024-02-07 12:10 | P.ANESASSM_ITS ---
Pre-Anesthetic Assessment Height/Weight: Height 1.65 m Weight 78.018 kg Temp Pulse Resp BP Pulse Ox O2 Del Method 97.6 F 72 18 149/83 95 Room Air 02/07/24 11:13 02/07/24 11:13 02/07/24 11:13 02/07/24 11:13 02/07/24 11:13 02/07/24 11:21 Operation Date: 02/07/24 12:40 Proposed Procedures p Usman Robot Total Knee Arthroplasty(Left) - Jailene Guzman MD Familial anesthetic complications: None Was Beta Francisco taken within 24 hours: N/A Was Clonidine taken within 24 hours: N/A Last intake: Intake Last Liquid Date 02/06/24 Last Liquid Time 18:00 Last Solid Date 02/06/24 Last Solid Time 18:00 Social No alcohol and No tobacco Exam alert, oriented x 3, clear to auscultation bilaterally and regular rate & rhythm Airway Mallampati: Class II CV/HEM Hypertension GI Gastroesophageal Reflux Disease Metabolic Thyroid Disease Anesthetic Plan ASA status: 3 Anesthesia: Regional (specify below) Risk of > 500 ml blood loss (7ml/kg in children): Yes, adequate IV access and fluids planned Medications/Allergies Home Medications Medication Instructions Recorded Confirmed Last Taken Type acetaminophen 650 mg 650 mg PO Q8H PRN Pain 05/31/23 02/06/24 02/06/24 History tablet,extended release diltiazem HCl 240 mg 240 mg PO DAILY 90 days #90 caps 11/02/23 02/06/24 02/07/24 Rx capsule,extended release 24 hr, controlled levothyroxine 150 mcg tablet 150 mcg PO DAILY 90 days #90 tabs 11/02/23 02/06/24 02/07/24 Rx losartan 50 mg tablet 50 mg PO DAILY 90 days #90 tabs 11/02/23 02/06/24 02/06/24 Rx omeprazole 40 mg capsule,delayed 40 mg PO DAILY 90 days #90 caps 11/02/23 02/06/24 02/06/24 Rx release potassium chloride 10 mEq 10 meq PO BID 90 days #180 caps 11/02/23 02/06/24 02/06/24 Rx capsule,extended release Allergies Allergy/AdvReac Type Severity Reaction Status Date / Time codeine AdvReac Mild vomiting Verified 02/01/24 10:12 Current Medications Generic Name Dose Route Start Last Admin Trade Name Freq PRN Reason Stop Dose Admin Sodium Chloride 1,000 mls @ 30 mls/hr 02/07/24 11:00 02/07/24 12:00 Sodium Chloride 0.9% IV 02/08/24 10:59 30 mls/hr .Q24H ROBERT Administration Ondansetron HCl 4 mg 02/07/24 10:59 02/07/24 12:08 Ondansetron 2 Mg/Ml Sdv 2 Ml IVP 4 mg Q5M PRN Administration NAUSEA AND VOMITING PFSH Anesthesia Medical History Primary osteoarthritis of left knee Degenerative arthritis of hip GERD (gastroesophageal reflux disease) Hypertension Hypothyroid Surgical History (Updated 02/06/24 @ 12:55 by Ashley Cruz RN) History of cholecystectomy Social History Smoking and tobacco/nicotine status: never used tobacco/nicotine Substance/Drug Use: never Current gender identity: Female Data Anesthesia 02/07/24 11:35 BMP 02/07/24 11:35 Sodium 140 Potassium 4.4 Chloride 106 Creatinine 0.9 Glucose 99 Calcium 9.3 Cardiac Studies: 2 No Data to Display
--- NOTE | 2024-02-07 12:46 | ANES.PROC ---
Anesthesia Procedures Procedure/Date: 02/07/24 Nerve Block ^: Nerve Block 1: Main Anesthesia: spinal anesthesia block Time Out Performed: Yes Consent: requested by attending/covering physician, from patient, from other, risks and benefits reviewed and patient agrees to proceed Nerve block location: adductor canal (L) Anesthesia monitors applied: pulse oximetry, EKG, BP cuff and oxygen Nerve block position: supine Anesthetic Used: ropivicaine 0.5% (30 ml) and with decadron (4 mg) Ultrasound used to: recognize landmarks and visualize and ID femerol nerve Nerve Stimulator Used?: No Interscalene/Femoral BLK: 4 stimuplex 21 g needle used for position and inplane approach, visualize local anesthetic spread and no vascular puncture identified Injection: neg aspiration of heme Patient Tolerated Procedure: well Complications: none
[2024-02-07] MEDS: ceFAZolin 2,000 MG in sodium chloride 0.9% (plus) 50 ML 100 MG IV (13:26)
[2024-02-07] MEDS: tranexamic acid 1,000 mg/10mL SDV 1000 MG IV (13:57)
[2024-02-07] MEDS: BUPivacaine liposome 13.3 mg/mL SDV 20 mL 266 MG INFILTRATI (14:13)
[2024-02-07] MEDS: BUPivacaine 0.5% INJ 30 mL XX (14:13)
[2024-02-07] MEDS: ceFAZolin 1,000 mg SDV 3000 MG IRRIGATION (14:14)
[2024-02-07] MEDS: vancomycin 1,000 MG SDV 1000 MG XX (14:15)
--- NOTE | 2024-02-07 15:44 | XRR_ITS ---
PROCEDURE INFORMATION: Exam: XR Chest Exam date and time: 02/07/2024 4:33 PM Age: 84 years old Clinical indication: Shortness of breath; Additional info: Possible aspiration, exam in recovery TECHNIQUE: Imaging protocol: Radiologic exam of the chest. Views: 1 view. COMPARISON: CR XR chest 1V portable [id number] 05/31/2023 11:07 AM FINDINGS: Lungs: There is vascular congestion with cephalization of flow, interstitial edema and ground-glass opacities compatible with CHF. No airspace consolidation on the left. Pleural spaces: Unremarkable. No pleural effusion. No pneumothorax. Heart/Mediastinum: The heart is enlarged. The right heart border is obscured and there is increased density medial right lung base some of which is due to the known large hiatal hernia however there does appear to be a rather abrupt caught off to the right lower lobe bronchus concerning for atelectasis/pneumonic infiltrate. Bones/joints: Severe degenerative changes are noted in the spine. Other findings: The patient is rotated to the right. XR/XR chest 1V portable [id number] IMPRESSION: 1. There is vascular congestion with cephalization of flow, interstitial edema and ground-glass opacities compatible with CHF. 2. The right heart border is obscured and there is increased density medial right lung base and along the right heart border some of which is due to the known large hiatal hernia however there does appear to be a rather abrupt caught off to the right lower lobe bronchus concerning for atelectasis/pneumonic infiltrate.
--- NOTE | 2024-02-07 16:25 | XRR_ITS ---
PROCEDURE INFORMATION: Exam: XR Left Knee Exam date and time: 02/07/2024 4:38 PM Age: 84 years old Clinical indication: Device placement; Joint replacement hardware; Prior surgery; Surgery date: Post-operative (0-2 days); Surgery type: Left total knee arthroplasty; Additional info: Status post left total knee arthroplasty TECHNIQUE: Imaging protocol: Radiologic exam of the left knee. Views: 1 or 2 views. COMPARISON: CT knee LT [facility] [id number] 01/23/2024 10:44 AM FINDINGS: Bones/joints: There is a satisfactory appearance of the postoperative changes left total knee arthroplasty.. Soft tissues: There is gas in the soft tissues. There is soft tissue edema. No unexpected foreign body. XR/XR knee LT 1-2V [id number] IMPRESSION: Satisfactory postoperative changes.
[2024-02-07 16:51] LABS: ABG PCO2 42.4 mmHg (35-45); ABG PH Result 7.28 (7.35-7.45); Arterial Blood Gas Hematocrit 36.3 % (37-47); Base Excess ABG -6.4 mmol/L (-2.0-2.0); Blood Gas Operator Identificat AMH; Blood Gas Sample Site Brachial, left; Blood Gas Sample Type Arterial; Carboxyhemoglobin 0.4 %THgb (0.4-20.1); HGB O2 Sat 97.3 % (95-100); Ionized Calcium Level - ABG 1.2 mmol/L (1.1-1.4); Methemoglobin 1.1 % (0.4-1.5); Oxygen Device SIMPLE MASK; Oxygen Saturation ABG 98.8; Potassium Level - ABG 4.1 mmol/L (3.5-5.0); Total Hemoglobin 11.8 g/dL (12-16)
--- NOTE | 2024-02-07 16:57 | ECG_ITS ---
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 Measurements Intervals [place] Rate: 65 P: 79 NV: 156 QRS: -9 QRSD: 94 T: 58 QT: 466 QTc: 486 Interpretive Statements SINUS RHYTHM PROLONGED QT INTERVAL Compared to ECG 05/31/2023 10:56:57 Prolonged QT interval now present Left-axis deviation no longer present T-wave abnormality no longer present Electronically Signed On 02-07-2024 21:33:09 CDT by Tiffany Anaya M.D. [id number]
--- NOTE | 2024-02-07 16:59 | XRR_ITS ---
PROCEDURE INFORMATION: Exam: XR Abdomen Exam date and time: 02/07/2024 5:26 PM Age: 84 years old Clinical indication: Other: Distension; Additional info: Abdomnal distentoin TECHNIQUE: Imaging protocol: Radiologic exam of the abdomen. Views: Frontal supine view of the abdomen. 1 View. COMPARISON: CT abdomen pelvis w con* [id number] 06/13/2023 7:03 PM FINDINGS: Tubes, catheters and devices: There is a battery pack projected over the left lower quadrant and stimulator wire projected over the right sacrum compatible with probable bladder stimulator. Gastrointestinal tract: There is a large amount of stool scattered throughout the colon without impaction. No ileus or obstruction. No dilated loops of bowel. Organs: Probable cholecystectomy clips are noted in the right upper quadrant. Bones/joints: There are severe degenerative changes in the spine. There is a right total hip arthroplasty which has an appropriate appearance. XR/XR KUB portable [id number] IMPRESSION: 1. There is a large amount of stool scattered throughout the colon without impaction. 2. Nonspecific bowel gas pattern.
--- NOTE | 2024-02-07 17:01 | PM.OP ---
Operative Report Date of procedure: February 07, 2024 Pre-op diagnosis: Significant degenerative osteoarthritis with valgus deformity and slight hyperextension Post-op diagnosis: Significant degenerative osteoarthritis with valgus deformity and slight hyperextension Post-op findings: Complete obliteration of joint space and large osteophytes with slight hyper extension and significant valgus deformity Procedure done: Left total knee arthroplasty with Usman guidance Implants: The [place] total knee system with a size 3 triathlon beaded cruciate retaining femur left, a triathlon titanium tibial component size 3 beaded, a triathlon X3 tibial bearing CS insert size 3 X 12 mm and a beaded triathlon titanium asymmetric patella size 29 x 9 mm Specimens removed/disposition: Bone, disposed of Pathology: None Surgeon: Jailene Guzman MD Primary Care Provider: Trisha Riley, nurse practitioner, who services were required for positioning, retraction, implantation, and completion of the surgical procedure. Anesthesia: General (Intubation following aspiration well under spinal/MAC) and Spinal (With MAC converted to general intubated anesthesia) Estimated blood loss (mL): 250 Tourniquet time (min): 0 (No Peña) IV fluids (mL): 600 Urine output (mL): 800 Complications: Aspiration pneumonia during spinal/MAC anesthesia Findings: Significant valgus deformity with hyperextension. Complete denudement of cartilage with large osteophytes. Condition: stable Disposition: PACU (Then to ICU when bed available) Brief History: This 84-year-old woman presented today for left total knee arthroplasty. The patient previously underwent right total hip arthroplasty with Dr. Sarah as well as a right total knee arthroplasty many many years ago at [facility] in [place]. The patient noted at the time of office evaluation that she had been having left knee pain for couple of years without specific injury. She was resistant to conservative measures with including bracing, corticosteroid injections, [id number] medications as well as prescription medications without relief. She ambulated with assistive device for gait instability and was unable to ambulate long distances and had significant limitations in her activities of daily living secondary to her knee pain. Given this history, the patient wished to proceed with total knee arthroplasty. Risks and complications were discussed with her in the office, and consents were signed. Procedure: The patient was brought to the operating theater, and after undergoing spinal anesthetic, with MAC and with supplemental adductor canal block, ASA 3, the left lower extremity was prepped with Dura-Prep and draped in usual fashion following placement of a tourniquet high on the leg. Anesthesia was subsequently converted to intubated following aspiration due to emesis during the spinal with MAC. Following initial anesthesia, the leg was draped free.? Tourniquet was not elevated during the case.? A surgical pause was performed, and at the time of the surgical pause, we confirmed the site and side of surgery. Additionally, we confirmed the appropriate and timely administration of preoperative antibiotics, Ancef 2 g.? The availability of equipment was confirmed, and the patient's identity was verbalized as well. Following the surgical pause, an incision was made centering over the patella continuing proximally and distally as necessary to allow access to the knee joint. Dissection continued through skin and soft tissues using a scalpel. Hemostasis was obtained using electrocautery. The skin incision was followed by a median parapatellar arthrotomy. The leg was extended and the patella was able to be displaced laterally.? Appropriate arrays and markers were placed in appropriate position for use of the Usman.? Preoperative planning had been accomplished and was discussed in detail with the [facility] title insurance sales representative.? Intraoperative mapping of the femur and tibia was accomplished after the arrays were placed.? Internal markers were also placed.? Once we had accomplished the Usman mapping, we began the appropriate resections for placement of the prosthesis.? The plan was for a cruciate retaining right total knee arthroplasty. Once appropriate mapping had been accomplished retraction was established using manual retraction by surgical technicians and also the Usman leg positioner and retractors.? The knee was evaluated.? There was significant osteoarthritic change as well as valgus deformity and slight hyperextension.? Appropriate bone resection was accomplished using the Usman.? The femur was sized to a size 3.? Following femoral cuts, attention was directed to the tibia.? Osteophytes were removed prior to this portion of the procedure.? We had performed a minimal medial release at the beginning of the procedure to allow for placement of the array.? Proximal tibia was evaluated, and it was felt that appropriate size for the tibia was a size 3.? Tray was noted to fit nicely with good coverage.? Rim fit was accomplished with the size 3. A trial reduction was accomplished after osteophytes had been removed as well as the medial and lateral menisci.? We had removed the anterior cruciate ligament at the beginning of the case and preserved the posterior cruciate ligament.? Trial reduction was accomplished with a size 3 femoral cruciate retaining component, a size 3 tibial tray and a size 3 CS tibial bearing insert which initially was 9 mm, but increased to 12 mm.? Secondary to the balancing of the knee, we elected to place a 12 mm insert for the actual component. Alignment was felt to be appropriate as well.? Trial components were removed after the femur had been drilled.? Prior to removal of the tibial tray which had been pinned in position with appropriate rotation as determined by the Usman plan, we broached the tibia.? Subsequently, the 4 drill holes were made for the prosthetic component.? All trial components were removed, and the wound was irrigated.? Plans were made for insertion of the prosthetic components.? Prior to this, the patella was manually prepared.? After resection of the articular surface with the jigging system, it was measured and measured a 29 mm patella.? We resected approximately 6 mm of patella.? Patellar height was restored with the patellar component. Once again, the wound was irrigated.? The Tritanium tibia was impacted into position.? The beaded femur was then impacted into position in a cementless fashion. The CS tibial insert was placed prior to placement of the femoral component. The patella was pressed into position with a patellar clamp.? Exparel was injected about the components deep and superficially.? The knee was then copiously irrigated with betadine and saline and suctioned dry. Attention was then directed to closure. Closure was accomplished with 0 Vicryl in the fascial tissues.? The suture line of 0 Vicryl was supplemented with strata fix, #1, with a running stitch from proximal to distal and a second running stitch from distal to proximal.? This was followed by Surgiflo and vancomycin powder.? Following this, a 2-0 STRATAFIX was used in the subcutaneous tissues, and the skin was closed with 3-0 Strata fix.? Care was taken to assure an excellent subcutaneous as well as skin closure.? A sterile dressing was then placed consisting of Dermabond Prineo, OpSite, ABD, sterile soft roll, and an Mario wrap including over the foot. The patient was returned the Recovery Room in a satisfactory condition. X-rays were obtained and reviewed there.? The patient will be discharged to the floor for postoperative rehabilitation and pain management. Related Problem List Diagnoses (1) Primary osteoarthritis of left knee:
--- NOTE | 2024-02-07 17:19 | P.HP_ITS ---
Providers/Chief Complaint 2 Admitting Physician: Jailene Guzman MD Primary Care Provider: Jeannine Chan MD Chief Complaint: M17.12 History of Present Illness Siomara Key is a 84 year old female Medications/Allergies Home Medications Medication Instructions Recorded Confirmed Last Taken Type acetaminophen 650 mg 650 mg PO Q8H PRN Pain 05/31/23 02/06/24 02/06/24 History tablet,extended release diltiazem HCl 240 mg 240 mg PO DAILY 90 days #90 caps 11/02/23 02/06/24 02/07/24 Rx capsule,extended release 24 hr, controlled levothyroxine 150 mcg tablet 150 mcg PO DAILY 90 days #90 tabs 11/02/23 02/06/24 02/07/24 Rx losartan 50 mg tablet 50 mg PO DAILY 90 days #90 tabs 11/02/23 02/06/24 02/06/24 Rx omeprazole 40 mg capsule,delayed 40 mg PO DAILY 90 days #90 caps 11/02/23 02/06/24 02/06/24 Rx release potassium chloride 10 mEq 10 meq PO BID 90 days #180 caps 11/02/23 02/06/24 02/06/24 Rx capsule,extended release Allergies Allergy/AdvReac Type Severity Reaction Status Date / Time codeine AdvReac Mild vomiting Verified 02/01/24 10:12 PFSH Acute 2 PFSH: Medical History Primary osteoarthritis of left knee Degenerative arthritis of hip GERD (gastroesophageal reflux disease) Hypertension Hypothyroid Surgical History (Updated 02/06/24 @ 12:55 by Ashley Cruz RN) History of cholecystectomy Social History Smoking and tobacco/nicotine status: never used tobacco/nicotine Substance/Drug Use: never Current gender identity: Female Vitals/I&O/Wt Last Vital Signs Temp 97.2 F L 02/07/24 16:30 Pulse 73 02/07/24 16:55 Resp 17 02/07/24 16:55 BP 128/68 02/07/24 16:55 Pulse Ox 98 02/07/24 16:55 O2 Del Method Simple Mask 02/07/24 16:55 O2 Flow Rate 13 02/07/24 16:55 0702/07/24 02/07/24 06:59 14:59 22:59 Intake Total 1150 / 1150 0 / 1150 Output Total 1850 / 1850 Balance 1150 / 1150 -1850 / -700 Weight last 48 hrs Weight 78.018 kg Physical Exam 2 Urinary Catheter Management: Peña: Cath Placed During This Visit: yes Urinary Catheter Date of Insertion: 02/07/24 Urinary Catheter Time of Insertion: 13:50 Data 02/07/24 11:35 Coding Level of Care Code Acute Code for Chg Medardod
[2024-02-07] MEDS: famotidine 20 mg/2 mL INJ IVP (17:29)
[2024-02-07 17:31] LABS: Basophils % 0.2 %; Eosinophils % 0.1 %; Lymphocytes # 1.1 10^3/uL (0.8-4.8); Lymphocytes % 11.3 %; Mean Corpuscular HGB Conc 30.9 g/dL (30-55); Mean Corpuscular Hemoglobin 27.2 pg (27-33); Mean Corpuscular Volume 87.9 fl (85-98); Mean Platelet Volume 11.7 fL (7.4-10.4); Monocytes # 0.1 10^3/uL (0.2-0.9); Monocytes % 1.3 %; Neutrophils # 8.28 10^3/uL (1.8-7.7); Neutrophils % 86.7 %; Nucleated Red Blood Cells % 0 %; Platelet Count 206 10^3/cmm (157-399); Red Blood Count 4.89 10^6/uL (3.85-5.65); Red Cell Distribution Width 13.3 % (12.1-15.1); White Blood Count 9.55 10^3/uL (3.29-11.43)
--- NOTE | 2024-02-07 17:53 | P.CONIM_ITS ---
Providers/Reason For Consult 2 Consulting Physician/Specialty*: Orthopedic service Reason for Consult*: Aspiration pneumonia, aspiration pneumonitis, acute respiratory failure Attending Physician: Jailene Guzman MD Primary Care Provider: Jeannine Chan MD History of Present Illness History of Present Illness Siomara Key is a 84 year old female with a past medical history of hypothyroidism, pretension, GERD, who presents to [facility] status post left total knee arthroplasty, patient had a aspiration event, bilious vomit, hospitalist team was called to PACU. Patient was examined, currently on 15 L, she is resting comfortably, has diffuse wheezing in upper lung santos, no evidence of respiratory failure, no nasal flaring no intercostal retractions, no suprasternal retractions, no nasal flaring. Patient is currently alert to person, to place, not to time she follows commands, denies feeling short of breath, she denies a history of COPD no history of smoking no history of CAD, she tells me that she did not eat after midnight. I reviewed her prior CAT scan in May 2023, she has evidence of a large hiatal hernia containing entire stomach, she does report an issue with acid reflux, chronically, she denies any abdominal pain, no history of bowel obstruction, she had a bowel movement yesterday, denies a history of aspiration, denies history of bowel obstruction, or ileus, or hiatal hernia ever giving her a problem such as aspiration or vomiting, denies any chronic abdominal pain, -Reviewed ABG pH 7.28, pO2 149, pCO2 42.4, -Chest x-ray shows cephalization of blood flow, she does have infiltrate along the right heart border, pneumonic infiltrate right lower lobe ? Does have metabolic acidosis -Denies any chest pain, -Normotensive -She was monitored in PACU, her all O2 requirements have steadily declined, she is down to 6 L, no evidence of respiratory distress -Will move patient to ICU Review of Systems 2 Const: Denies: fever(s) Card: Denies: chest pain Resp: Denies: dyspnea Medications/Allergies Home Medications Medication Instructions Recorded Confirmed Last Taken Type acetaminophen 650 mg 650 mg PO Q8H PRN Pain 05/31/23 02/06/24 02/06/24 History tablet,extended release diltiazem HCl 240 mg 240 mg PO DAILY 90 days #90 caps 11/02/23 02/06/2424 Rx capsule,extended release 24 hr, controlled levothyroxine 150 mcg tablet 150 mcg PO DAILY 90 days #90 tabs 11/02/23 02/06/24 02/07/24 Rx losartan 50 mg tablet 50 mg PO DAILY 90 days #90 tabs 11/02/23 02/06/24 02/06/24 Rx omeprazole 40 mg capsule,delayed 40 mg PO DAILY 90 days #90 caps 11/02/23 02/06/24 02/06/24 Rx release potassium chloride 10 mEq 10 meq PO BID 90 days #180 caps 11/02/23 02/06/24 02/06/24 Rx capsule,extended release Allergies Allergy/AdvReac Type Severity Reaction Status Date / Time codeine AdvReac Mild vomiting Verified 02/01/24 10:12 Current Medications Generic Name Dose Route Start Last Admin Trade Name Freq PRN Reason Stop Dose Admin Sodium Chloride 1,000 mls @ 30 mls/hr 02/07/24 11:00 02/07/24 14:14 Sodium Chloride 0.9% IV 02/08/24 10:59 Infused .Q24H ROBERT Infusion Ondansetron HCl 4 mg 02/07/24 10:59 02/07/24 12:08 Ondansetron 2 Mg/Ml Sdv 2 Ml IVP 4 mg Q5M PRN Administration NAUSEA AND VOMITING PFSH Acute 2 PFSH: Medical History Primary osteoarthritis of left knee Degenerative arthritis of hip GERD (gastroesophageal reflux disease) Hypertension Hypothyroid Surgical History History of cholecystectomy Social History Smoking and tobacco/nicotine status: never used tobacco/nicotine Substance/Drug Use: never Current gender identity: Female Vitals/I&O/Wt Last Vital Signs Temp 97.2 F L 02/07/24 16:30 Pulse 70 02/07/24 17:40 Resp 16 02/07/24 17:40 BP 147/81 02/07/24 17:40 Pulse Ox 95 02/07/24 17:40 O2 Del Method Nasal Cannula 02/07/24 17:40 O2 Flow Rate 6 02/07/24 17:40 02/07/24 02/07/24 02/07/24 06:59 14:59 22:59 Intake Total 1150 / 1150 0 / 1150 Output Total 1850 / 1850 Balance 1150 / 1150 -1850 / -700 Weight last 48 hrs Weight 78.018 kg Physical Exam 2 Const: COMMON NORMALS: no acute distress ORIENTATION/CONSCIOUSNESS: Yes awake, Yes oriented to person and Yes oriented to place; not oriented to time Resp: COMMON NORMALS: normal respiratory effort, No retractions and No use of accessory muscles AUSCULTATION: crackles and wheezes Cardio: COMMON NORMALS: regular rate, regular rhythm, S1 normal heart sound present and S2 normal heart sound present RATE: regular rate RHYTHM: r egular rhythm HEART SOUNDS: S1 normal heart sound present and S2 normal heart sound present GI: COMMON NORMALS: Normal to inspection, nondistended, normoactive bowel sounds present and non-tender Extremity: COMMON NORMALS: no calf tenderness and no pedal edema Neuro: SENSORIUM/ORIENTATION: Yes oriented to person, Yes oriented to place and No oriented to time Psych: COMMON NORMALS: mental status grossly normal Urinary Catheter Management: Peña: Cath Placed During This Visit: yes Urinary Catheter Date of Insertion: 02/07/24 Urinary Catheter Time of Insertion: 13:50 Data 02/07/24 17:16 02/07/24 11:35 A&P Assessment and plan (1) Aspiration pneumonia: (2) Acute hypoxic respiratory failure: Plan - Aspiration event, with concerns for developing aspiration pneumonia Acute hypoxic respiratory failure -Bilious aspiration ? History history of hiatal hernia containing entire stomach ? Currently down to 6 L ? No evidence of respiratory distress ? Plan ? Order KUB -CT chest abdomen pelvis ? CBC, CMP, CRP, BMP, Pro-Clint, troponin series ? Zosyn ? Keep n.p.o. ? DuoNeb ? Aspiration precautions ? DuoNeb ? For now we will hold off on steroids will consider based on clinical progress ? Monitor respiratory status closely ? Full code ? Lovenox for DVT prophylaxis Consult Attestations 2 Medical Necessity Statement: Patient requires hospitalization for postoperative aspiration event, aspiration pneumonia, respiratory failure Diagnoses Aspiration pneumonia J69.0 Acute hypoxic respiratory failure J96.01
[2024-02-07 18:01] LABS: Troponin(5th) Baseline 11 ng/L (0-10)
[2024-02-07 18:02] LABS: Lactic Sepsis W/Reflex 1.4 mmol/L (0.5-2.2)
[2024-02-07] MEDS: HYDROmorphone 1 mg/mL INJ 1 mL 0.5 MG IVP (18:02)
--- NOTE | 2024-02-07 18:04 | CTR_ITS ---
PROCEDURE INFORMATION: Exam: CT Chest Without Contrast; Diagnostic Exam date and time: 02/07/2024 7:54 PM Age: 84 years old Clinical indication: Other: Aspiration; Additional info: Aspiration event, hiatal hernia TECHNIQUE: Imaging protocol: Diagnostic computed tomography of the chest without contrast. Radiation optimization: All CT scans at this facility use at least one of these dose optimization techniques: automated exposure control; mA and/or kV adjustment per patient size (includes targeted exams where dose is matched to clinical indication); or iterative reconstruction. COMPARISON: CR XR chest 1V portable [id number] 02/07/2024 4:33 PM RADIATION DOSE METRICS: Total DLP (mGy-cm): 916 FINDINGS: Lungs: Patchy airspace consolidation concerning for pneumonic infiltrates are noted especially in the right middle lobe and right lower lobe. There is mild pneumonitis versus atelectasis left lower lobe. There is volume loss in the right lower lobe with narrowing or fluid in the right lower lobe bronchus. Pleural spaces: There are trace pleural effusions. Heart: Unremarkable. No cardiomegaly. No pericardial effusion. Coronary arteries: There is severe atherosclerotic calcification of the coronary arteries. Lymph nodes: Unremarkable. No enlarged lymph nodes. Vasculature: Unremarkable. No aortic aneurysm. Diaphragm: A large hiatal hernia is present. Bones/joints: Unremarkable. No acute fracture. Soft tissues: Unremarkable. PROCEDURE INFORMATION: Exam: CT Abdomen And Pelvis Without Contrast Exam date and time: 02/07/2024 7:54 PM Age: 84 years old Clinical indication: Other: Aspiration; Additional info: Aspiration event, hiatal hernia TECHNIQUE: Imaging protocol: Computed tomography of the abdomen and pelvis without contrast. Radiation optimization: All CT scans at this facility use at least one of these dose optimization techniques: automated exposure control; mA and/or kV adjustment per patient size (includes targeted exams where dose is matched to clinical indication); or iterative reconstruction. COMPARISON: CT abdomen pelvis w con* [id number] 06/13/2023 7:03 PM RADIATION DOSE METRICS: Total DLP (mGy-cm): 916 FINDINGS: Tubes, catheters and devices: A balloon bladder catheter is present. There is a battery pack in the subcutaneous fat left flank with wire extending into the sacrum. Liver: Unremarkable.No mass. Gallbladder and biliary ducts: There has been a cholecystectomy. There is no common bile duct dilation. Pancreas: The pancreas is normal. Spleen: The spleen is normal. Adrenal glands: The adrenal glands are normal. Kidneys and ureters: There is no evidence of hydronephrosis. There is no evidence of renal calcifications. Stomach and bowel: There is no evidence of intestinal perforation or obstruction. Extensive diverticulosis is present in the distal colon. There is no evidence of colitis/diverticulitis. Appendix: A normal appendix is identified. Intraperitoneal space: Unremarkable. No free air. No significant fluid collection. Vasculature: Unremarkable.No abdominal aortic aneurysm. Lymph nodes: Unremarkable.No enlarged lymph nodes. Urinary bladder: The bladder is decompressed. Reproductive: There has been a hysterectomy. Bones/joints: There is a right total hip arthroplasty. No acute bony abnormality. There are moderate to severe diffuse degenerative changes in the spine. No acute bony abnormality. Soft tissues: Unremarkable. CT/[place] [id number] IMPRESSION: 1. Patchy airspace consolidation concerning for pneumonic infiltrates are noted especially in the right middle lobe and right lower lobe. 2. There is volume loss in the right lower lobe with narrowing or fluid in the right lower lobe bronchus. IMPRESSION: No acute abnormality in the abdomen or pelvis.
--- NOTE | 2024-02-07 20:08 | SUR.PHASEI ---
2034 Pt taken from PACU to CT Scan and then to ICU. Chrissy , ICU Nurse, assisted with transfer from CT Scan to ICU.
--- NOTE | 2024-02-07 20:29 | ECG_ITS ---
[facility] Test Date: 2024-02-07 Pat Name: Siomara Key Department: Room: [facility] Gender: Female Underbaster: : 1940 Requested By: Caleb Falk Order Number: [id number] Mosley MD: Tiffany Anaya M.D. Measurements Intervals [place] Rate: 73 P: 14 PA: 153 QRS: -18 QRSD: 90 T: 42 QT: 404 QTc: 446 Interpretive Statements SINUS RHYTHM POSSIBLE ANTERIOR MYOCARDIAL INFARCTION , PROBABLY OLD [30 ms Q WAVE IN V3/V4, OR R < 0.2 mV IN V4] Compared to ECG 02/07/2024 17:20:39 Myocardial infarct finding now present Prolonged QT interval no longer present Electronically Signed On 02-07-2024 21:41:14 CDT by Tiffany Anaya M.D. [id number]
[2024-02-07] MEDS: piperacillin-tazobactam 3.375 GM in sodium chloride 0.9% (plus) 50 ML IV (21:16)
[2024-02-07] MEDS: iron polysaccharide complex 150 mg Capsule PO (21:17)
[2024-02-07] MEDS: pantoprazole 40 mg SDV IVP (21:17)
[2024-02-07] MEDS: enoxaparin 40 mg/0.4 mL Syringe SUBCUT (21:17)
[2024-02-07] MEDS: chlorhexidine gluconate 0.12% Btl 473 mL 30 ML MUCOUS MEM ×2 (21:17→21:37)
[2024-02-07] MEDS: sennosides-docusate Tablet 2 TAB PO (21:17)
[2024-02-07] MEDS: calcium carbonate 500 mg Chew Tablet 1000 MG PO (21:17)
[2024-02-07] MEDS: mupirocin oint 22 gm 1 APPLIC NASAL (21:18)
[2024-02-07 21:20] LABS: NT Pro B Type Natriuretic Pept 641 pg/mL (0-450); Procalcitonin 0.02 ng/mL (0-0.5)
[2024-02-07 21:21] LABS: Troponin 5 2HR 9.37 ng/L (0-10); Troponin 5 2HR Delta -1.63 ABS# (0-10)
[2024-02-07 21:28] LABS: Albumin Level 3.4 g/dL (3.5-5.2); Alkaline Phosphatase 105 U/L (35-105); Blood Urea Nitrogen 22 mg/dL (8-23); Calcium 8.4 mg/dL (8.5-10.5); Carbon Dioxide 12 mmol/L (22-29); Chloride 107 mmol/L (98-107); Creatinine Clr Calc Pharmacy 55.9822; Globulin 2.7 g/dL (1.3-4.6); Glucose 147 mg/dL (65-115); Osmolality Calculated 286 mOsm/kg (285-295); Sodium 135 mmol/L (136-145); Total Bilirubin 0.3 mg/dL (0.15-1.2); Total Protein 6.1 g/dL (6.6-8.7)
[2024-02-07 21:30] LABS: Alanine Aminotransferase 14 U/L (0-33); Anion Gap 20.6 (5-19); Aspartate Amino Transferase 26 U/L (0-32); Potassium 4.6 mmol/L (3.5-5.1)
--- NOTE | 2024-02-07 22:57 | ECG_ITS ---
[facility] Test Date: 2024-02-07 Pat Name: Siomara Key Department: Room: [facility]06 Gender: Female Gateman: : 1940 Requested By: Caleb Falk Order Number: [id number] Melany MD: Cristobal Jackson M.D. Measurements Intervals [place] Rate: 79 P: 27 AK: 149 QRS: -24 QRSD: 94 T: 29 QT: 401 QTc: 460 Interpretive Statements SINUS RHYTHM POSSIBLE ANTERIOR MYOCARDIAL INFARCTION , PROBABLY OLD [30 ms Q WAVE IN V3/V4, OR R < 0.2 mV IN V4] Compared to ECG 02/07/2024 20:29:45 No significant changes Electronically Signed On 02-08-2024 16:42:07 CDT by Cristobal Jackson M.D. [id number]
[2024-02-07 23:39] LABS: Troponin 5 6HR 11.85 ng/L (0-10); Troponin 5 6HR Delta 0.85 ng/L (0-12)
[2024-02-07 23:41] LABS: Glucose Point of Care 139 mg/dL (70-110)
[2024-02-07 23:48] LABS: Magnesium 2.1 mg/dL (1.7-2.3); Thyroid Stimulating Hormone 0.04 uIU/mL (0.27-4.20)
[2024-02-07] MEDS: cetylpyridinium Lozenge 1 EACH MUCOUS MEM (23:53)
[2024-02-08] VITALS (22 sets, daily range): BP systolic 130–181; BP diastolic 75–99; PULSE 82–101; RESP 13–23; TEMP 36.4–37.1; O2SAT 92–97
[2024-02-08 03:33] LABS: Basophils % 0.2 %; Hematocrit 34.4 % (36-47); Lymphocytes # 0.4 10^3/uL (0.8-4.8); Lymphocytes % 2.3 %; Mean Corpuscular HGB Conc 31.7 g/dL (30-55); Mean Corpuscular Hemoglobin 27.7 pg (27-33); Mean Corpuscular Volume 87.3 fl (85-98); Mean Platelet Volume 11.5 fL (7.4-10.4); Monocytes # 0.9 10^3/uL (0.2-0.9); Neutrophils # 15.81 10^3/uL (1.8-7.7); Neutrophils % 92.2 %; Nucleated Red Blood Cells % 0 %; Platelet Count 217 10^3/cmm (157-399); Red Blood Count 3.94 10^6/uL (3.85-5.65); Red Cell Distribution Width 13.1 % (12.1-15.1); White Blood Count 17.15 10^3/uL (3.29-11.43)
[2024-02-08 04:12] LABS: Anion Gap 18.5 (5-19); Blood Urea Nitrogen 25 mg/dL (8-23); Calcium 8.2 mg/dL (8.5-10.5); Carbon Dioxide 19 mmol/L (22-29); Chloride 107 mmol/L (98-107); Glucose 154 mg/dL (65-115); NT Pro B Type Natriuretic Pept 964 pg/mL (0-450); Osmolality Calculated 297 mOsm/kg (285-295); Potassium 4.5 mmol/L (3.5-5.1); Procalcitonin 0.11 ng/mL (0-0.5); Sodium 140 mmol/L (136-145)
[2024-02-08 04:23] LABS: C Reactive Protein 15.6 mg/L (0.0-4.9)
[2024-02-08] MEDS: acetaminophen 1,000 MG/100 ML PIGGYBACK 400 MG IV ×2 (04:40→12:48)
[2024-02-08] MEDS: piperacillin-tazobactam 3.375 GM in sodium chloride 0.9% (plus) 50 ML IV ×3 (04:40→20:50)
[2024-02-08] MEDS: oxyCODONE 5 mg IR Tab/Cap PO ×4 (05:48→20:49)
--- NOTE | 2024-02-08 05:56 | PC.NURSE ---
Patient requesting that foot pump be removed left foot, stating that it is causing her pain.
--- NOTE | 2024-02-08 07:00 | XRR_ITS ---
PROCEDURE INFORMATION: Exam: XR Chest Exam date and time: 02/08/2024 6:09 AM Age: 84 years old Clinical indication: Other: F/u cxr; Additional info: SOB TECHNIQUE: Imaging protocol: Radiologic exam of the chest. Views: 1 view. COMPARISON: CT chest abdpel [id number] 02/07/2024 7:54 PM FINDINGS: Lungs: Minimal patchy infiltrate or atelectasis is noted involving the left mid and lower lung field in the right lower lung. No lobar consolidation is appreciated. Pleural spaces: Unremarkable. No pleural effusion. No pneumothorax. Heart/Mediastinum: The heart is borderline enlarged. There is calcified plaque involving the aorta. There is a large retrocardiac hiatal hernia. Bones/joints: Unremarkable. XR/XR chest 1V portable [id number] IMPRESSION: 1. Mild cardiomegaly. 2. Minimal patchy infiltrate or atelectasis involving the mid and lower lung on the left and right lower lung similar to that seen on prior exam. 3. Large retrocardiac hiatal hernia.
--- NOTE | 2024-02-08 09:46 | PC.CHAP ---
Pastoral Care Encounter/Spiritual Assessment Type of Contact [] Declined utilities operator visit [] Patient/Family/Request visit [] Outpatient visit [] Follow-up visit [] Physician referral [] Code/Alert [] Routine visit [] Staff referral [] Actively dying [] Patient sleeping [] Family support [] [] Out of room [] Palliative care [] [x] Receiving care in room [] Pre-surgical visit [] Trauma [] Long length of stay [] ICU visit [] Other: Relational/Emotional Strength [] Patient feels connected with others/family/visitors/staff [] Distress [] Loneliness/isolation [] Abandonment Spirituality of Patient [] Person of Chandrika [] Attends Christianity of their Chandrika [] Believes in Prayer [] Reads Bible or Mandaeism materials [] There are Spiritual issues to be addressed Sewer Pipe Layer Interventions [] Prayer [] Active listening [] Non-anxious presence [] Spiritual/emotional support [] Crisis/trauma care [] Spiritual counseling [] Bereavement support [] Provided bereavement packet [] Provided Bible/devotional materials [] Provided toy/stuffed animal, coloring book to patient or family member [] Provided Communion [] Anointing/[place] [] Salvation [] Completed spiritual assessment [] Other: Impact on Illness or Injury [] Angry [] Fearful [] Anxious [] Often cries [] Exhaustion [] Unable to work [] Unable to attend gnosticist [] Unable to walk/stand [] Unable to read [] Unable to drive [] Unable to eat/drink [] Unable to sleep [] Unable to be with family [] Patient intubated [] Other: Summary Time spent with patient
[2024-02-08] MEDS: pantoprazole 40 mg SDV IVP ×2 (09:53→20:50)
[2024-02-08] MEDS: iron polysaccharide complex 150 mg Capsule PO ×2 (09:54→17:09)
[2024-02-08] MEDS: sennosides-docusate Tablet 2 TAB PO ×2 (09:54→17:09)
[2024-02-08] MEDS: aspirin 325 mg EC Tablet PO (09:54)
[2024-02-08] MEDS: multivitamin therapeutic Tablet 1 TAB PO (09:54)
[2024-02-08] MEDS: losartan 50 mg Tablet PO (09:54)
[2024-02-08] MEDS: cholecalciferol (vitamin D3) 1,000 unit Tablet 1000 UNIT PO (09:54)
[2024-02-08] MEDS: dilTIAZem ER (24HR) 240 mg Capsule PO (09:54)
[2024-02-08] MEDS: calcium carbonate 500 mg Chew Tablet 1000 MG PO ×2 (09:54→17:09)
[2024-02-08] MEDS: levothyroxine 150 mcg Tablet PO (09:54)
[2024-02-08] MEDS: mupirocin oint 22 gm 1 APPLIC NASAL ×2 (09:55→17:10)
[2024-02-08] MEDS: chlorhexidine gluconate 0.12% Btl 473 mL 30 ML MUCOUS MEM ×4 (09:55→20:50)
[2024-02-08] MEDS: ondansetron 2 mg/ML SDV 2 mL 4 MG IVP (10:36)
--- NOTE | 2024-02-08 13:13 | P.ANESPOST_ITS ---
Inpatient post-anesthesia follow up: Airway intact: Yes Vital signs: Temperature 97.6 F Pulse Rate 101 Respiratory Rate 18 Blood Pressure 181/99 Pulse Oximetry 92 Oxygen Delivery Me thod Nasal Cannula Oxygen Flow Rate 2 Fraction of Inspir ed Oxygen Hydration adequate: Yes Nausea and vomiting: No Pain level: 1 Mental status: Baseline Additional Comments: 02/06 Patient vomited up bilious secretio ns intraop under spinal anesthesia and was intubated after subsequent desaturation of O2 sat. Upon entering room, patient was satting well by this point. HD stable. A fiberoptic scope was used for general evaluation of aspiration. Frothy yellow secretions seen proximally in ETT and suctioned. Unable to see any significant secretions or bile in distal bronchial tree, though R side appeared blood and irritated proximally, which may be been induced by ETT suction. Patient was extubated sucessfully and was weaned down to NC 6 L postoperatively and doing well. Upon discussion with patients daughter and with patient this morning, they admit to patient having episodes of vomiting due to hernia. Educated them to inform future anesthesia providers of her hernia, vomiting, and this intraop episode. Today she continues to do well, no cough, no dyspnea, no fever.
--- NOTE | 2024-02-08 13:43 | P.PN_ITS ---
Subjective 2 Subjective: Patient was seen this morning, she is sitting up in a chair, resting comfortably, does report intermittent shortness of breath, no fevers, chills, does have a cough, she denies a history of smoking, she does report issues with her hiatal hernia, causes indigestion, I did detailed discussion with her about her aspiration event, will have to monitor her for the next 24 hours, monitor oxygen requirements, she does look a little bit fluid overloaded we will give her a dose of Lasix, with these aspiration events, she does have the risk of worsening pneumonia, sepsis, respiratory failure, lung abscess. Unfortunate we do not have inpatient pulmonology here's so we can do a therapeutic and diagnostic bronchoscopy, but she is resting very comfortably. Plan is to have her work with physical therapy continue incentive spirometer, flutter valve, continue antibiotic therapy, monitor her closely, hopefully plan on discharging tomorrow, discussed risk and benefits, shared decision making she voiced understanding, all questions answered, agreed to proceed Vitals/I&O/Wt Last Vital Signs Temp 97.6 F 02/08/24 11:31 Pulse 101 H 02/08/24 11:31 Resp 18 02/08/24 11:31 BP 181/99 02/08/24 11:31 Pulse Ox 92 02/08/24 11:31 O2 Del Method Nasal Cannula 02/08/24 11:31 O2 Flow Rate 2 02/08/24 08:00 02/07/24 02/08/24 02/08/24 22:59 06:59 14:59 Intake Total 630 / 1780 150 / 1930 150 / 150 Output Total 1850 / 1850 600 / 2450 Balance -1220 / -70 -450 / -520 150 / 150 Weight last 48 hrs Weight 84.005 kg Weight 82.463 kg Weight 78.018 kg Physical Exam 2 Const: COMMON NORMALS: no acute distress and patient oriented x3 Resp: COMMON NORMALS: normal respiratory effort, No retractions and No use of accessory muscles AUSCULTATION: crackles and wheezes Cardio: COMMON NORMALS: regular rate, regular rhythm, S1 normal heart sound present and S2 normal heart sound present RATE: regular rate RHYTHM: r egular rhythm HEART SOUNDS: S1 normal heart sound present and S2 normal heart sound present GI: COMMON NORMALS: Normal to inspection, nondistended, normoactive bowel sounds present and non-tender Extremity: COMMON NORMALS: no pedal edema Neuro: COMMON NORMALS: patient oriented x3 Psych: COMMON NORMALS: mental status grossly normal Urinary Catheter Management: Peña: Cath Placed During This Visit: yes, but has since been removed by the nurse Reason for Continuing Indwelling Catheter: Decision to DC Catheter Urinary Catheter Date of Insertion: 02/07/24 Urinary Catheter Time of Insertion: 13:50 Date Urinary Catheter Removed: 02/08/24 Time Urinary Catheter Discontinued: 05:59 Data 02/08/24 03:23 02/08/24 03:23 A&P Assessment and plan (1) Aspiration pneumonia: (2) Acute hypoxic respiratory failure: Plan - Aspiration event, with concerns for developing aspiration pneumonia Acute hypoxic respiratory failure -Bilious aspiration reported ? History history of hiatal hernia containing entire stomach ? Currently down to 2 L nasal cannula ? No evidence of respiratory distress ? CT of the chest ? CT/[place] [id number] IMPRESSION: 1. Patchy airspace consolidation concerning for pneumonic infiltrates are noted especially in the right middle lobe and right lower lobe. 2. There is volume loss in the right lower lobe with narrowing or fluid in the right lower lobe bronchus. ? Plan ? Keep aspiration precautions, clear liquids, speech therapy eval ? Continue Zosyn ? Incentive spirometer, flutter valve, up out of bed ? DuoNeb ? For now we will hold off on steroids will consider based on clinical progress ? Monitor respiratory status closely ? Protonix, Carafate ? Full code ? Lovenox for DVT prophylaxis Plan for today, continue IV Zosyn, but a bed, incentive spirometer, flutter valve wean oxygen, monitor respiratory status closely 1 dose IV Lasix Attestations 2 Medical Necessity Statement*: Patient requires hospitalization for acute respiratory failure second aspiration event Diagnoses Aspiration pneumonia J69.0 Acute hypoxic respiratory failure J96.01
[2024-02-08 14:15] LABS: Free T4 Free Thyroxine 1.86 ng/dL (0.82-1.77)
[2024-02-08] MEDS: potassium chloride ER 20 mEq Tablet PO (14:24)
[2024-02-08] MEDS: FUROsemide 10 mg/mL SDV 4mL 40 MG IVP (14:24)
--- NOTE | 2024-02-08 14:25 | PM.PN ---
Subjective Subjective: The patient was seen in her room laying in bed. She was comfortable. She had worked with physical therapy. At the time I saw her, she had minimal to no lung complaints. She understands the events surrounding her aspiration, and she is being followed by medicine for this. Medications: Reviewed: Yes Vitals/I&O/Wt Last Vital Signs Temp 97.6 F 02/08/24 11:31 Pulse 101 H 02/08/24 11:31 Resp 18 02/08/24 11:31 BP 181/99 02/08/24 11:31 Pulse Ox 92 02/08/24 11:31 O2 Del Method Nasal Cannula 02/08/24 11:31 O2 Flow Rate 2 02/08/24 08:00 02/07/24 02/08/24 02/08/24 22:59 06:59 14:59 Intake Total 630 / 1780 150 / 1930 150 / 150 Output Total 1850 / 1850 600 / 2450 Balance -1220 / -70 -450 / -520 150 / 150 Weight last 48 hrs Weight 185 lb 3.2 oz Weight 181 lb 12.8 oz Weight 172 lb Physical Exam Const: COMMON NORMALS: no acute distress, average body habitus, patient oriented x3 and alert GENERAL APPEARANCE: cooperative and comfortable ORIENTATION/CONSCIOUSNESS: Yes awake HENMT: COMMON NORMALS: normocephalic and atraumatic HEAD & SCALP: normocephalic and atraumatic Eye: GENERAL EYE: appearance normal, both eyes and all related structures Chest: COMMONS NORMALS: normal inspection of the chest Resp: COMMON NORMALS: normal respiratory effort EFFORT & INSPECTION: Yes able to speak in complete sentences and Yes symmetric chest movement Extremity: LEFT LOWER EXTREMITY: Yes knee joint (Large outer dressing is removed. The wound is benign. ) Left knee: Yes palpation (Minimal discomfort), Yes ROM (Not evaluated but able to straight leg raise) and Yes neurovascular exam (Intact distally with no evidence of DVT) Neuro: COMMON NORMALS: patient oriented x3 SENSORIUM/ORIENTATION: Yes alert Psych: COMMON NORMALS: mental status grossly normal APPEARANCE: Yes grossly normal ATTITUDE: Yes calm and Yes engaged ATTENTION/CONCENTRATION: Yes attention grossly intact Skin: COMMON NORMALS: no rashes or lesions noted GENERAL SKIN EXAM: no rashes or lesions noted Urinary Catheter Management: Peña: Cath Placed During This Visit: yes, but has since been removed by the nurse Reason for Continuing Indwelling Catheter: Decision to DC Catheter Urinary Catheter Date of Insertion: 02/07/24 Urinary Catheter Time of Insertion: 13:50 Date Urinary Catheter Removed: 02/08/24 Time Urinary Catheter Discontinued: 05:59 Data 02/08/24 03:23 02/08/24 03:23 A&P Assessment and plan (1) Primary osteoarthritis of left knee: Patient is status post primary total knee arthroplasty for primary osteoarthritis of the left knee. She tolerated the procedure well, however, she had an aspiration event under her spinal anesthesia with MAC. Patient does have a history of hiatal hernia with nausea and emesis. She understands the reasons and implications of this event. From an orthopedic perspective, she worked with physical therapy today. She is ready for discharge when she is medically cleared from the standpoint of her aspiration pneumonia. Attestations Medical Necessity Statement*: Per hospitalist team. Coding Level of Care Code Acute Code for [facility] Fwd Diagnoses Primary osteoarthritis of left knee M17.12
[2024-02-08] MEDS: acetaminophen 500 mg Tablet 1000 MG PO (16:17)
--- NOTE | 2024-02-08 19:43 | PC.NURSE ---
Patient c/o itching and asking for Benadryl. Dr. Villavicencio notified.
[2024-02-08] MEDS: diphenhydrAMINE 25 mg Capsule PO (20:49)
[2024-02-08] MEDS: enoxaparin 40 mg/0.4 mL Syringe SUBCUT (20:50)
[2024-02-09] VITALS (11 sets, daily range): BP systolic 92–118; BP diastolic 52–67; PULSE 85–104; RESP 15–18; TEMP 36.7–37.1; O2SAT 90–93
[2024-02-09] MEDS: acetaminophen 500 mg Tablet 1000 MG PO ×2 (01:02→08:59)
[2024-02-09] MEDS: oxyCODONE 5 mg IR Tab/Cap PO ×3 (01:02→14:32)
[2024-02-09] MEDS: piperacillin-tazobactam 3.375 GM in sodium chloride 0.9% (plus) 50 ML IV ×2 (04:57→12:28)
[2024-02-09 05:31] LABS: Basophils % 0.3 %; Eosinophils % 0.3 %; Hematocrit 30.7 % (36-47); Lymphocytes # 1.3 10^3/uL (0.8-4.8); Lymphocytes % 11.1 %; Mean Corpuscular HGB Conc 30.9 g/dL (30-55); Mean Corpuscular Hemoglobin 27.5 pg (27-33); Mean Corpuscular Volume 88.7 fl (85-98); Monocytes # 1.9 10^3/uL (0.2-0.9); Monocytes % 16.2 %; Neutrophils # 8.34 10^3/uL (1.8-7.7); Neutrophils % 71.8 %; Nucleated Red Blood Cells % 0 %; Platelet Count 223 10^3/cmm (157-399); Red Blood Count 3.46 10^6/uL (3.85-5.65); Red Cell Distribution Width 13.5 % (12.1-15.1); White Blood Count 11.61 10^3/uL (3.29-11.43)
[2024-02-09 05:57] LABS: C Reactive Protein 94.9 mg/L (0.0-4.9); Procalcitonin 0.22 ng/mL (0-0.5)
[2024-02-09 06:05] LABS: Anion Gap 16.6 (5-19); Blood Urea Nitrogen 29 mg/dL (8-23); Calcium 8.5 mg/dL (8.5-10.5); Carbon Dioxide 21 mmol/L (22-29); Chloride 106 mmol/L (98-107); Creatinine Clr Calc Pharmacy 36.3798; Glucose 114 mg/dL (65-115); NT Pro B Type Natriuretic Pept 1174 pg/mL (0-450); Osmolality Calculated 295 mOsm/kg (285-295); Potassium 4.6 mmol/L (3.5-5.1); Sodium 139 mmol/L (136-145)
--- NOTE | 2024-02-09 07:00 | XRR_ITS ---
PROCEDURE INFORMATION: Exam: XR Chest Exam date and time: 02/09/2024 1:00 PM Age: 84 years old Clinical indication: Shortness of breath; Additional info: SOB TECHNIQUE: Imaging protocol: Radiologic exam of the chest. Views: 1 view. COMPARISON: CR XR chest 1V portable [id number] 02/08/2024 6:09 AM FINDINGS: Lungs: Unremarkable. No consolidation or mass. Pleural spaces: Unremarkable. No pleural effusion. No pneumothorax. Heart/Mediastinum: A hiatal hernia is noted in the lower mediastinum. Bones/joints: Unremarkable. XR/XR chest 1V portable [id number] IMPRESSION: No acute findings.
[2024-02-09] MEDS: aspirin 325 mg EC Tablet PO (08:57)
[2024-02-09] MEDS: calcium carbonate 500 mg Chew Tablet 1000 MG PO (08:58)
[2024-02-09] MEDS: iron polysaccharide complex 150 mg Capsule PO (08:58)
[2024-02-09] MEDS: dilTIAZem ER (24HR) 240 mg Capsule PO (08:59)
[2024-02-09] MEDS: multivitamin therapeutic Tablet 1 TAB PO (08:59)
[2024-02-09] MEDS: cholecalciferol (vitamin D3) 1,000 unit Tablet 1000 UNIT PO (08:59)
[2024-02-09] MEDS: sennosides-docusate Tablet 2 TAB PO (08:59)
[2024-02-09] MEDS: pantoprazole 40 mg SDV IVP (08:59)
[2024-02-09] MEDS: levothyroxine 150 mcg Tablet PO (08:59)
[2024-02-09] MEDS: mupirocin oint 22 gm 1 APPLIC NASAL (09:00)
[2024-02-09] MEDS: chlorhexidine gluconate 0.12% Btl 473 mL 30 ML MUCOUS MEM (09:00)
--- NOTE | 2024-02-09 11:49 | PM.DCS ---
Discharge Providers Date of Admission: 02/07/24 16:19 Date of Discharge: February 09, 2024 Attending Provider at Admission: Jailene Guzman MD Attending Provider at Discharge: Jailene Guzman MD Primary Care Provider: Jeannine Chan MD Diagnoses at Discharge Discharge Diagnosis (1) Status post total left knee replacement: Status: Acute Permanent problem details: Date of procedure: February 07, 2024 Pre-op diagnosis: Significant degenerative osteoarthritis with valgus deformity and slight hyperextension Procedure done: Left total knee arthroplasty with Usman guidance Implants: The [email or web address] total knee system with a size 3 triathlon beaded cruciate retaining femur left, a triathlon titanium tibial component size 3 beaded, a triathlon X3 tibial bearing CS insert size 3 X 12 mm and a beaded triathlon titanium asymmetric patella size 29 x 9 mm Surgeon: Jailene Guzman MD (2) Primary osteoarthritis of left knee: Status: Chronic Reason for Visit Reason for Visit: M17.12 Brief History: This 84-year-old woman presented for left total knee arthroplasty. The patient previously underwent right total hip arthroplasty with Dr. Sarah as well as a right total knee arthroplasty many many years ago at [facility] in [place]. The patient noted at the time of office evaluation that she had been having left knee pain for couple of years without specific injury. She was resistant to conservative measures with including bracing, corticosteroid injections, [id number] medications as well as prescription medications without relief. She ambulated with assistive device for gait instability and was unable to ambulate long distances and had significant limitations in her activities of daily living secondary to her knee pain. Given this history, the patient wished to proceed with total knee arthroplasty. She is now post operative day 2. Hospital Course Hospital Course Patient was admitted under observation status following same-day surgery for right total knee arthroplasty. Patient did well during her surgery; however she suffered as aspiration event while under anesthesia. Patient was admitted with consult to hospitalist team for management and monitoring. The patient did well postoperatively otherwise. There were no significant postoperative complications. On the first postoperative day, the patient was working with physical therapy. Plans were made for discharge to home with home health. She was comfortable with this, there is no evidence of DVT. Dressing was changed and wound was benign. At the time I saw her, she had minimal to no lung complaints. She understands the events surrounding her aspiration, and she is being followed by medicine for this and has been made stable for discharge. She will follow-up in the office as scheduled. Physical Exam Const: COMMON NORMALS: no acute distress, average body habitus, patient oriented x3 and alert GENERAL APPEARANCE: cooperative and comfortable ORIENTATION/CONSCIOUSNESS: Yes awake HENMT: COMMON NORMALS: normocephalic and atraumatic HEAD & SCALP: normocephalic and atraumatic Eye: GENERAL EYE: appearance normal, both eyes and all related structures Chest: COMMONS NORMALS: normal inspection of the chest Resp: COMMON NORMALS: normal respiratory effort EFFORT & INSPECTION: Yes able to speak in complete sentences and Yes symmetric chest movement Cardio: OTHER: Declined shortness of breath, chest pain or discomfort. Extremity: LEFT LOWER EXTREMITY: Yes knee joint Left knee: Yes inspection (Mild swelling. Incision/dressing clean and dry. ), Yes palpation (Minimal discomfort), Yes ROM (Not evaluated but able to straight leg raise) and Yes neurovascular exam (Intact distally with no evidence of DVT. 2+ pop, PT and DP. ) Neuro: COMMON NORMALS: patient oriented x3 SENSORIUM/ORIENTATION: Yes alert Psych: COMMON NORMALS: mental status grossly normal APPEARANCE: Yes grossly normal ATTITUDE: Yes calm and Yes engaged ATTENTION/CONCENTRATION: Yes attention grossly intact Skin: COMMON NORMALS: no rashes or lesions noted GENERAL SKIN EXAM: no rashes or lesions noted Urinary Catheter Management: Peña: Cath Placed During This Visit: yes, but has since been removed by the nurse Reason for Continuing Indwelling Catheter: Decision to DC Catheter Urinary Catheter Date of Insertion: 02/07/24 Urinary Catheter Time of Insertion: 13:50 Date Urinary Catheter Removed: 02/08/24 Time Urinary Catheter Discontinued: 05:59 Discharge Data Studies Completed and Pending Completed Studies During Hospitalization Category Date Time Status CT chest abdomen pelvis [[place] [id number] Cat Scan 02/07/24 18:04 Completed ] Routine CXRP [XR chest 1V portable [id number]] Routine Exams 02/07/24 15:44 Completed XR KUB portable [id number] Stat Exams 02/07/24 16:59 Completed XR chest 1V portable [id number] Routine Exams 02/08/24 07:00 Completed XR knee LT 1-2V [id number] Routine Exams 02/07/24 16:25 Completed Pending at discharge Category Date Time Status XR chest 1V portable [id number] Routine Exams 02/09/24 07:00 Ordered Basic Metabolic Panel AM LABS Lab 02/10/24 04:00 Ordered Basic Metabolic Panel AM LABS Lab 02/11/24 04:00 Ordered C Reactive Protein AM LABS Lab 02/10/24 04:00 Ordered Complete Blood Count w/Auto AM LABS Lab 02/10/24 04:00 Ordered Complete Blood Count w/Auto AM LABS Lab 02/11/24 04:00 Ordered NT Pro B Type Natriuretic Pept QAM Lab 02/10/24 06:00 Ordered Procalcitonin AM LABS Lab 02/10/24 04:00 Ordered Pathology: Surgical [PTH] Routine Pth 02/07/24 16:05 Received Radiology Impressions Knee X-Ray 02/07/24 16:25 IMPRESSION: Satisfactory postoperative changes. KUB X-Ray 02/07/24 16:59 IMPRESSION: 1. There is a large amount of stool scattered throughout the colon without impaction. 2. Nonspecific bowel gas pattern. Chest/Abdomen/Pelvis CT 02/07/24 18:04 IMPRESSION: 1. Patchy airspace consolidation concerning for pneumonic infiltrates are noted especially in the right middle lobe and right lower lobe. 2. There is volume loss in the right lower lobe with narrowing or fluid in the right lower lobe bronchus. IMPRESSION: No acute abnormality in the abdomen or pelvis. Chest X-Ray 02/08/24 07:00 IMPRESSION: 1. Mild cardiomegaly. 2. Minimal patchy infiltrate or atelectasis involving the mid and lower lung on the left and right lower lung similar to that seen on prior exam. 3. Large retrocardiac hiatal hernia. Laboratory Results WBC 11.61 10^3/uL (3.29-11.43) H 02/09/24 05:06 RBC 3.46 10^6/uL (3.85-5.65) L 02/09/24 05:06 Hgb 9.50 g/dL (11.27-16.99) L 02/09/24 05:06 Hct 30.7 % (36-47) L 02/09/24 05:06 MCV 88.7 fl (85-98) 02/09/24 05:06 MCH 27.5 pg (27-33) 02/09/24 05:06 MCHC 30.9 g/dL (30-55) 02/09/24 05:06 RDW 13.5 % (12.1-15.1) 02/09/24 05:06 Plt Count 223 10^3/cmm (157-399) 02/09/24 05:06 MPV 12.0 fL (7.4-10.4) H 02/09/24 05:06 Neut % (Auto) 71.8 % 02/09/24 05:06 Lymph % (Auto) 11.1 % 02/09/24 05:06 [place] % (Auto) 16.2 % 02/09/24 05:06 Eos % (Auto) 0.3 % 02/09/24 05:06 Baso % (Auto) 0.3 % 02/09/24 05:06 Neut # (Auto) 8.34 10^3/uL (1.8-7.7) H 02/09/24 05:06 Lymph # (Auto) 1.3 10^3/uL (0.8-4.8) 02/09/24 05:06 [place] # (Auto) 1.9 10^3/uL (0.2-0.9) H 02/09/24 05:06 Eos # (Auto) 0.0 10^3/uL (0.0-0.8) 02/09/24 05:06 Baso # (Auto) 0.0 10^3/uL (0.0-0.1) 02/09/24 05:06 Nucleated RBC % (auto) 0 % 02/09/24 05:06 Nucleated RBCs # 0.0 /100WBC 02/09/24 05:06 Specimen Type Arterial 02/07/24 16:40 Sample Site Brachial, left 02/07/24 16:40 ABG pH 7.28 (7.35-7.45) L 02/07/24 16:40 ABG pCO2 42.4 mmHg (35-45) 02/07/24 16:40 ABG pO2 149.0 mmHg (80.0-100.0) H 02/07/24 16:40 ABG HCO3 20.0 mmol/L (22-26) L 02/07/24 16:40 ABG O2 Saturation 98.8 02/07/24 16:40 ABG Base Excess -6.4 mmol/L (-2.0-2.0) L 02/07/24 16:40 [place] Test N/a 02/07/24 16:40 A-a O2 Gradient Not Reportable 02/07/24 16:40 Hematocrit 36.3 % (37-47) L 02/07/24 16:40 Hgb O2 Saturation 97.3 % (95-100) 02/07/24 16:40 Carboxyhemoglobin 0.4 %THgb (0.4-20.1) 02/07/24 16:40 Methemoglobin 1.1 % (0.4-1.5) 02/07/24 16:40 Total Hemoglobin 11.8 g/dL (12-16) L 02/07/24 16:40 Sodium 140.0 mmol/L (131-143) 02/07/24 16:40 Potassium 4.1 mmol/L (3.5-5.0) 02/07/24 16:40 Glucose 123.0 mg/dL (70-115) H 02/07/24 16:40 Ionized Calcium 1.2 mmol/L (1.1-1.4) 02/07/24 16:40 O2 Delivery Device Simple mask 02/07/24 16:40 O2 Liters/Min 15.0 % 02/07/24 16:40 Boiler Operator Helper ID Amh 02/07/24 16:40 Sodium 139 mmol/L (136-145) 02/09/24 05:06 Potassium 4.6 mmol/L (3.5-5.1) 02/09/24 05:06 Chloride 106 mmol/L (98-107) 02/09/24 05:06 Carbon Dioxide 21 mmol/L (22-29) L 02/09/24 05:06 Anion Gap 16.6 (5-19) 02/09/24 05:06 BUN 29 mg/dL (8-23) H 02/09/24 05:06 Creatinine 1.3 mg/dL (0.5-0.9) H 02/09/24 05:06 GFR Calculation Not Reportable 02/09/24 05:06 Glucose 114 mg/dL (65-115) 02/09/24 05:06 POC Glucose 139 mg/dL (70-110) H 02/07/24 23:31 Calculated Osmolality 295 mOsm/kg (285-295) 02/09/24 05:06 Lactic Acid 1.4 mmol/L (0.5-2.2) 02/07/24 17:16 Calcium 8.5 mg/dL (8.5-10.5) 02/09/24 05:06 Magnesium 2.1 mg/dL (1.7-2.3) 02/07/24 23:10 Total Bilirubin 0.3 mg/dL (0.15-1.2) 02/07/24 20:21 AST 26 U/L (0-32) 02/07/24 20:21 ALT 14 U/L (0-33) 02/07/24 20:21 Alkaline Phosphatase 105 U/L (35-105) 02/07/24 20:21 Troponin T Baseline 11 ng/L (0-10) H 02/07/24 17:16 Troponin T 120 Minute 9.37 ng/L (0-10) 02/07/24 20:21 Delta Troponin T -1.63 ABS# (0-10) L 02/07/24 20:21 Troponin T Hi Sens 6Hr 11.85 ng/L (0-10) H 02/07/24 23:10 Troponin T Hi Sens 6Hr Delta 0.85 ng/L (0-12) 02/07/24 23:10 C-Reactive Protein 94.9 mg/L (0.0-4.9) H 02/09/24 05:06 NT-Pro-B Natriuret Pep 1174 pg/mL (0-450) H 02/09/24 05:06 Total Protein 6.1 g/dL (6.6-8.7) L 02/07/24 20:21 Albumin 3.4 g/dL (3.5-5.2) L 02/07/24 20:21 Globulin 2.7 g/dL (1.3-4.6) 02/07/24 20:21 Procalcitonin 0.22 ng/mL (0-0.5) 02/09/24 05:06 TSH 0.04 uIU/mL (0.27-4.20) L 02/07/24 23:10 Free T4 1.86 ng/dL (0.82-1.77) H 02/08/24 03:23 Free T3 2.0 PG/ML (2.0-4.4) 02/08/24 03:23 Vitals Last Vital Signs Temp 98.0 F 02/09/24 08:00 Pulse 100 02/09/24 08:44 Resp 16 02/09/24 08:44 BP 92/52 02/09/24 09:00 Pulse Ox 93 02/09/24 08:44 O2 Del Method Room Air 02/09/24 08:44 O2 Flow Rate 2 02/08/24 08:00 Discharge Plan Discharge Patient Disposition: Home Condition: Stable Prescriptions: New oxycodone 5 mg Tablet 5 - 10 mg PO Q4H PRN (Reason: Moderate To Severe Pain) 7 Days Qty: 40 0RF acetaminophen 500 mg Tablet 1,000 mg PO Q8H 30 Days Qty: 180 0RF aspirin 325 mg Tablet,Delayed Release (Dr/Ec) 325 mg PO DAILY 60 Days Qty: 60 0RF celecoxib 100 mg capsule 100 mg PO BID 90 Days Qty: 180 0RF Continued losartan 50 mg tablet 50 mg PO DAILY 90 Days Qty: 90 1RF levothyroxine 150 mcg tablet 150 mcg PO DAILY 90 Days Qty: 90 1RF diltiazem HCl 240 mg capsule,ext.rel 24h degradable 240 mg PO DAILY 90 Days Qty: 90 1RF omeprazole 40 mg capsule,delayed release(DR/EC) 40 mg PO DAILY 90 Days Qty: 90 1RF potassium chloride 10 mEq capsule, extended release 10 meq PO BID 90 Days Qty: 180 1RF Discontinued acetaminophen [Tylenol Arthritis] 650 mg Tablet Extended Release 650 mg PO Q8H PRN (Reason: Pain) Discharge Orders: Discharge Order (Routine); Ordered 02/09/24 Ordered By: Trisha Riley Referrals: Jailene Guzman MD [Physician] - 02/27/24 10:45 am Jeannine Chan MD [Primary Care Provider] - (We have notified your physician's clinic of the need for a follow-up appointment to be scheduled. If you have not heard from them within the next 2 business days, please call them directly. ) Discharge Diet: Advance as tolerated and Usual diet Discharge Activity: Increase activity as tolerated, Limit activity as instructed, Use walker/crutches as instructed and As per PT/OT instructions Patient Instructions: Acute Wound Care (DC), Opioid Safety, Post Anesthesia Care Activity Restrictions/Additional Instructions: Ice to left knee. Weight-bear as tolerated. You may remove your dressing at the 2-week. Unless it comes off before or lifts up on its own, then please remove it. Ambulate weightbearing as tolerated with physical therapy. Gait training, ambulation, and strengthening per physical therapy. Discharge Attestations Time Spent in Discharge Care*: greater than 30 min Quality Metrics Clinical Quality Measures [ No reported AMI, CVA or VTE this stay] Coding Level of Care Code Acute Code for Chg Fwd Diagnoses Status post total left knee replacement Z96.652 Primary osteoarthritis of left knee M17.12
--- NOTE | 2024-02-09 13:32 | P.PN_ITS ---
Subjective 2 Subjective: Patient was seen this morning, she denies any fevers, chills, does have a cough, we discussed aspiration precautions at home, her using incentive spirometer, Augmentin, for future situations, she should inform anesthesia that she has a history of a hiatal hernia that is quite moderate to severe, containing her stomach, she is at increased risk of aspiration, Vitals/I&O/Wt Last Vital Signs Temp 98.0 F 02/09/24 12:00 Pulse 85 02/09/24 12:00 Resp 15 02/09/24 12:00 BP 107/67 02/09/24 12:00 Pulse Ox 91 02/09/24 12:00 O2 Del Method Room Air 02/09/24 12:00 O2 Flow Rate 2 02/08/24 08:00 02/08/24 02/09/24 02/09/24 22:59 06:59 14:59 Intake Total 530 / 680 170 / 850 170 / 170 Balance 530 / 680 170 / 850 170 / 170 Weight last 48 hrs Weight 87.175 kg Weight 84.005 kg Weight 82.463 kg Physical Exam 2 Const: COMMON NORMALS: no acute distress and patient oriented x3 Resp: COMMON NORMALS: normal respiratory effort, No retractions, No use of accessory muscles and clear to auscultation bilaterally AUSCULTATION: clear to auscultation bilaterally Cardio: COMMON NORMALS: regular rate, regular rhythm, S1 normal heart sound present and S2 normal heart sound present RATE: regular rate RHYTHM: r egular rhythm HEART SOUNDS: S1 normal heart sound present and S2 normal heart sound present GI: COMMON NORMALS: Normal to inspection, nondistended, normoactive bowel sounds present and non-tender Extremity: COMMON NORMALS: no pedal edema Neuro: COMMON NORMALS: patient oriented x3 Psych: COMMON NORMALS: mental status grossly normal Urinary Catheter Management: Peña: Cath Placed During This Visit: yes, but has since been removed by the nurse Reason for Continuing Indwelling Catheter: Decision to DC Catheter Urinary Catheter Date of Insertion: 02/07/24 Urinary Catheter Time of Insertion: 13:50 Date Urinary Catheter Removed: 02/08/24 Time Urinary Catheter Discontinued: 05:59 Data 02/09/24 05:06 02/09/24 05:06 A&P Assessment and plan (1) Aspiration pneumonia: (2) Acute hypoxic respiratory failure: Plan - Aspiration event, with concerns for developing aspiration pneumonia Acute hypoxic respiratory failure -Bilious aspiration reported ? History history of hiatal hernia containing entire stomach ? Currently down to 2 L nasal cannula ? No evidence of respiratory distress ? CT of the chest ? CT/[place] [id number] IMPRESSION: 1. Patchy airspace consolidation concerning for pneumonic infiltrates are noted especially in the right middle lobe and right lower lobe. 2. There is volume loss in the right lower lobe with narrowing or fluid in the right lower lobe bronchus. ? Plan ? Incentive spirometer, flutter valve, up out of bed ? Will discharge today Augmentin, albuterol ? Lovenox for DVT prophylaxis Attestations 2 Medical Necessity Statement*: Patient will be discharged today Diagnoses Aspiration pneumonia J69.0 Acute hypoxic respiratory failure J96.01
== END 2024-02-09 14:52 | disposition home or self-care (01) ==
LOC: MEDSURG 16:19 → ICU 20:21 → MEDSURG 02-08 04:07
PROVIDERS: Anesthesiology; Family Medicine; Admitting Provider Specialist; PCP Family Medicine; Visit Provider Specialist
PROC: 8E0Y0CZ Robotic Assisted Procedure of Lower Extremity, Open Approach (ICD-10-PCS; CPT 27447; principal; 2024-02-07 12:40)
DX: M17.12 Unilateral primary osteoarthritis, left knee (principal); M21.062 Valgus deformity, not elsewhere classified, left knee; J69.0 Pneumonitis due to inhalation of food and vomit; J96.01 Acute respiratory failure with hypoxia; Z96.641 Presence of right artificial hip joint; E03.9 Hypothyroidism, unspecified; K21.9 Gastro-esophageal reflux disease without esophagitis; E87.20 Acidosis, unspecified; I10 Essential (primary) hypertension
CPT/HCPCS: 20985; 27447; 36415; 36416; 36600; 51702; 71045; 71250; 73560; 74018; 74176; 80048; 80051; 80053; 82330; 82805; 82962; 83605; 83735; 83880; 84145; 84439; 84443; 84481; 84484; 85025; 86140; 88305; 92610; 93005; 96372; 97110; 97116; 97162; 97166; 97535; C1776; C9290; G0378; J0131; J0690; J1100; J1170; J1650; J1940; J2250; J2371; J2405; J2470; J2543; J2704; J2795; J3370; J3490; J7030

== ENCOUNTER → 2024-02-14 11:39 | Outpatient (BNVA) | payer MEDICARE, SELFPAY | PROVIDERS: PCP Family Medicine; Visit Provider Family Medicine | DX: I10 Essential (primary) hypertension (principal) | CPT/HCPCS: 80048 ==

== ENCOUNTER → 2024-02-27 10:47 | Outpatient (BNVA) | payer MEDICARE, SELFPAY | PROVIDERS: PCP Family Medicine; Visit Provider Specialist | DX: Z96.652 Presence of left artificial knee joint (principal) | CPT/HCPCS: 73560; 73565; 99024 ==

== ENCOUNTER 2024-02-27 20:40 | Observation (INO) | payer MEDICARE, SELFPAY ==
[2024-02-27] VITALS (7 sets, daily range): BP systolic 122–156; BP diastolic 62–79; PULSE 67–84; RESP 15–18; TEMP 36.8; O2SAT 90–98; BMI 28.6
--- NOTE | 2024-02-27 20:51 | XRR_ITS ---
PROCEDURE INFORMATION: Exam: XR Left Hip Exam date and time: 02/27/2024 8:54 PM Age: 84 years old Clinical indication: Injury or trauma; Fall; Blunt trauma (contusions or hematomas); Left; Prior surgery; Surgery date: 6+ months; Surgery type: RT hip stimulator; Additional info: Fall pain TECHNIQUE: Imaging protocol: Radiologic exam of the left hip. Views: 2 or 3 views hip with pelvis when performed. COMPARISON: [place] [id number] 02/07/2024 7:54 PM FINDINGS: Tubes, catheters and devices: Single lead pelvic neurostimulator partially image. Bones/joints: Faint oblique lucency in the intertrochanteric region of the left femur. Right hip arthroplasty noted. No dislocation. Soft tissues: Unremarkable. XR/XR hip LT 2-3V wo/w pel* [id number] IMPRESSION: Nondisplaced intertrochanteric left femur fracture not excluded. CT could be considered for further assessment if clinically warranted.
--- NOTE | 2024-02-27 20:51 | XRR_ITS ---
PROCEDURE INFORMATION: Exam: XR Left Femur Exam date and time: 02/27/2024 8:58 PM Age: 84 years old Clinical indication: Injury or trauma; Fall; Blunt trauma; Thigh or upper leg; Left; Prior surgery; Surgery date: 6+ months; Surgery type: Lt knee; Additional info: Fall pain, recent surgery TECHNIQUE: Imaging protocol: Radiologic exam of the left femur. Views: 2 views. COMPARISON: CR (PELVIS, ) 02/27/2024 8:54 PM FINDINGS: Bones/joints: No acute osseous findings. Total left knee arthroplasty partially imaged. Hardware appears intact within the field of view. Right hip arthroplasty partially imaged. Possible contusion in the lateral left thigh. Soft tissues: Unremarkable. XR/XR femur LT min 2V* [id number] IMPRESSION: No acute osseous findings.
--- NOTE | 2024-02-27 21:39 | CTR_ITS ---
PROCEDURE INFORMATION: Exam: CT Left Lower Extremity Without Contrast, Hip Exam date and time: 02/27/2024 9:45 PM Age: 84 years old Clinical indication: Injury or trauma; Fall; Other: Pain; Additional info: Fall poss intertoc FX on plain film TECHNIQUE: Imaging protocol: CT of the left lower extremity without contrast was performed. Exam focused on the hip. Radiation optimization: All CT scans at this facility use at least one of these dose optimization techniques: automated exposure control; mA and/or kV adjustment per patient size (includes targeted exams where dose is matched to clinical indication); or iterative reconstruction. COMPARISON: CR (PELVIS, ) 02/27/2024 8:54 PM RADIATION DOSE METRICS: Total DLP (mGy-cm): 463.9 FINDINGS: Bones/joints: No acute fracture or dislocation. Mild degenerative changes of the hip with subarticular cystic changes. Soft tissues: Normal. Vasculature: A few scattered atherosclerotic calcifications are seen within the visualized vasculature. Bowel: Moderate stool in the visualized rectum. Colonic diverticulosis. CT/CT hip LT wo con* [id number] IMPRESSION: 1. No acute osseous findings. 2. Mild degenerative changes of the hip.
--- NOTE | 2024-02-27 21:59 | ED_ITS ---
HPI - Extremity Problem General: Chief complaint: Extremity Injury, Lower Stated complaint: fall Time Seen by Provider: 02/27/24 20:48 History of Present Illness: Patient presents to the ER after a fall. Fell from a standing height. Stepping up onto a stair when her leg gave out and she fell backwards. Patient daughter caught her before she hit her head. Patient denies any loss of consciousness or other pain other than her left hip and femur. Patient had her left knee replac ed about [address] Neil, and had been doing good up until this fall. Review of Systems General: Reports: 10 or more systems reviewed and unremarkable except in HPI and below PFSH ED PFSH: Medical History Primary osteoarthritis of left knee Degenerative arthritis of hip GERD (gastroesophageal reflux disease) Hypertension Hypothyroid Surgical History Status post total left knee replacement Date of procedure: February 07, 2024 Pre-op diagnosis: Significant degenerative osteoarthritis with valgus deformity and slight hyperextension Procedure done: Left total knee arthroplasty with Usman guidance Implants: The [employer] total knee system with a size 3 triathlon beaded cruciate retaining femur left, a triathlon titanium tibial component size 3 beaded, a triathlon X3 tibial bearing CS insert size 3 X 12 mm and a beaded triathlon titanium asymmetric patella size 29 x 9 mm Surgeon: Jailene Guzman MD History of cholecystectomy Social History Smoking and tobacco/nicotine status: never used tobacco/nicotine Substance/Drug Use: never Current gender identity: Female Physical Exam Const: COMMON NORMALS: no acute distress, average body habitus, patient oriented x3, no limitations, healthy appearing, alert and well nourished HENMT: COMMON NORMALS: normocephalic, atraumatic, hearing grossly normal bilaterally, external ears normal, Normal external nose present and moist oral mucous membranes HEAD & SCALP: normocephalic and atraumatic NOSE: Normal external nose present EXTERNAL EAR: Yes external ears normal Neck/C-Spine: COMMON NORMALS: no JVD Chest: COMMONS NORMALS: normal inspection of the chest and normal palpation of entire chest wall Resp: COMMON NORMALS: normal respiratory effort, No retractions, No use of accessory muscles and clear to auscultation bilaterally AUSCULTATION: clear to auscultation bilaterally Cardio: COMMON NORMALS: no JVD, regular rate, regular rhythm, S1 normal heart sound present, S2 normal heart sound present, No gallops present (Cardio), No clicks present (Cardio), No murmurs present (Cardio) and No rub (Cardio) RATE: regular rate RHYTHM: regular rhythm HEART SOUNDS: S1 normal heart sound present and S2 normal heart sound present GI: COMMON NORMALS: Normal to inspection, nondistended, normoactive bowel sounds present, Soft to palpation, non-tender, No hepatosplenomegaly present and no masses PALPATION: Yes Soft to palpation and Yes No hepatosplenomegaly present Neuro: COMMON NORMALS: patient oriented x3 SENSORIUM/ORIENTATION: Yes alert Course Vital Signs: Vital signs: Vital Signs Temperature 98.3 F 02/27/24 20:41 Pulse Rate 76 02/27/24 23:00 Respiratory Rate 15 02/27/24 22:22 Blood Pressure 156/75 02/27/24 23:00 Pulse Oximetry 95 02/27/24 23:00 Oxygen Delivery Me thod Room Air 02/27/24 22:00 MDM - Extremity (Nontraumatic) Medical Decision Making Patient following her left hip and femur, these areas was x-rayed, it did not show any initial break however the x-ray of the hip showed a possible inner troches fracture they suggested correlation of CT, CT was negative for fracture. After given the patient 1 Percocet for pain control patient still unable to move her leg without being in exquisite pain. Patient myself and her daughter do not feel that she is a safe discharge to go home alone without being able to move around her house. Dr. Velez was consulted who agreed to place the patient observation. Medical Records I reviewed the patient's medical records. Lab Data I reviewed the patient's lab results. Radiology Impressions Femur X-Ray 02/27/24 20:51 IMPRESSION: No acute osseous findings. Hip/Pelvis X-Ray 02/27/24 20:51 IMPRESSION: Nondisplaced intertrochanteric left femur fracture not excluded. CT could be considered for further assessment if clinically warranted. Hip CT 02/27/24 21:39 IMPRESSION: 1. No acute osseous findings. 2. Mild degenerative changes of the hip. All radiology interpretation(s) finalized by discharge Discharge Plan Discharge Patient Disposition: Placed in Observation Clinical Impression: Fall Qualifiers: Encounter type: initial encounter Qualified Code(s): W19.XXXA - Unspecified fall, initial encounter Contusion Qualifiers: Encounter type: initial encounter Contusion area: hip Laterality: left Qualified Code(s): S70.02XA - Contusion of left hip, initial encounter Coding Level of Care Code ED Dental Cream Maker for Alvaro Sewell
[2024-02-27] MEDS: oxyCODONE-APAP 5-325 mg Tablet 2 TAB PO (22:22)
[2024-02-27] MEDS: HYDROmorphone 1 mg/mL INJ 1 mL 0.5 MG IVP (23:54)
[2024-02-28] VITALS (13 sets, daily range): BP systolic 105–150; BP diastolic 60–78; PULSE 67–83; RESP 13–18; TEMP 36.7–36.9; O2SAT 91–96
--- NOTE | 2024-02-28 02:19 | P.HP_ITS ---
Providers/Chief Complaint 2 Admitting Physician: Jody Velez MD Primary Care Provider: Jeannine Chan MD Chief Complaint: fall History of Present Illness Siomara Key is a 84 year old female who underwent left knee total arthroplasty on February 09, 2024. Postop course was unremarkable except for a minor aspiration event. She did well postoperatively. Presented back for a follow-up as outpatient to orthopedics where she had removal of her dressing and sutures. She states that she had been feeling well since her surgery. When she was returning home as she was trying to climb the stairs into her garage, she tripped and fell. She was unable to get up thereafter. She has been experiencing pain over her left thigh since then. Her x-ray initially showed nondisplaced intertrochanteric left femur fracture suspicion. This was followed up with a hip CT which was negative for any fracture or dislocation. Mild degenerative changes of the hip. She is able to flex at the knee, however movement is restricted with pain at the left hip. Also reporting tenderness over the lateral left thigh. Review of Systems 2 General: Reports: 10 or more systems reviewed and unremarkable except in HPI and below Const: Denies: fever(s), chills or body aches Eyes: Denies: change in vision, blurry vision or photophobia ENMT: Reports: hoarseness; Denies: throat pain, enlarged tonsils, odynophagia or nasal congestion Card: Denies: chest pain, palpitations, irregular heart rhythm, edema, swelling of feet/ankles, lightheadedness, pre-syncope, dyspnea on exertion or orthopnea Resp: Denies: dyspnea, productive cough, non-productive cough, wheezing, stridor, pain on inspiration, change in phlegm color, hemoptysis or chest congestion GI: Denies: abdominal pain, nausea, vomiting, hematemesis, coffee ground emesis, dysphagia, heartburn, diarrhea, constipation, GI cramping, change in stool character, hematochezia or melena : Denies: flank pain, difficulty voiding, dysuria, urinary frequency, urinary urgency, urinary hesitancy or hematuria Musc: Denies: neck pain, back pain, extremity pain, joint swelling, joint warmth or deformity Neuro: Denies: headache(s), numbness in extremities, weakness in extremities, sensory changes, difficulty walking, frequent falls, dizziness, vertigo, behavioral changes, Slurred speech present or seizure-like activity Psych: Denies: anxiety, depression, suicidal ideation or homicidal ideation Endo: Denies: polyuria, polydipsia, tired all the time, cold intolerance or hot flashes Reyes/Lymph: Denies: easy bruising or easy bleeding Medications/Allergies Home Medications Medication Instructions Recorded Confirmed Last Taken Type diltiazem HCl 240 mg 240 mg PO DAILY 90 days #90 caps 11/02/23 02/27/24 02/07/24 Rx capsule,extended release 24 hr, controlled levothyroxine 150 mcg tablet 150 mcg PO DAILY 90 days #90 tabs 11/02/23 02/27/24 02/07/24 Rx losartan 50 mg tablet 50 mg PO DAILY 90 days #90 tabs 11/02/23 02/27/24 02/06/24 Rx omeprazole 40 mg capsule,delayed 40 mg PO DAILY 90 days #90 caps 11/02/23 02/27/24 02/06/24 Rx release potassium chloride 10 mEq 10 meq PO BID 90 days #180 caps 11/02/23 02/27/24 02/06/24 Rx capsule,extended release acetaminophen 500 mg tablet 1,000 mg (2 x 500 mg) PO Q8H 30 02/09/24 02/27/24 Unknown Rx days #180 tabs albuterol sulfate 90 mcg/actuation 1 inh inhalation Q6H #8.5 grams 02/09/24 02/27/24 Unknown Rx aerosol inhaler aspirin 325 mg tablet,delayed 325 mg PO DAILY 60 days #60 tabs 02/09/24 02/27/24 Unknown Rx release celecoxib 100 mg capsule 100 mg PO DAILY 02/14/24 02/27/24 Unknown History ondansetron 4 mg disintegrating 4 mg PO Q8H PRN nausea and 02/14/24 02/27/24 Unknown Rx tablet vomiting #30 tabs tramadol 50 mg tablet 50 mg PO Q6H PRN pain 15 days #60 02/16/24 02/27/24 Unknown Rx tabs oxycodone-acetaminophen 5 mg-325 1 tab PO Q6H PRN pain #7 tabs 02/27/24 Unknown Rx mg tablet (Percocet) Allergies Allergy/AdvReac Type Severity Reaction Status Date / Time codeine AdvReac Mild vomiting Verified 02/27/24 20:45 PFSH Acute 2 PFSH: Medical History Primary osteoarthritis of left knee Degenerative arthritis of hip GERD (gastroesophageal reflux disease) Hypertension Hypothyroid Surgical History Status post total left knee replacement Date of procedure: February 07, 2024 Pre-op diagnosis: Significant degenerative osteoarthritis with valgus deformity and slight hyperextension Procedure done: Left total knee arthroplasty with Usman guidance Implants: The [employer] total knee system with a size 3 triathlon beaded cruciate retaining femur left, a triathlon titanium tibial component size 3 beaded, a triathlon X3 tibial bearing CS insert size 3 X 12 mm and a beaded triathlon titanium asymmetric patella size 29 x 9 mm Surgeon: Jailene Guzman MD History of cholecystectomy Social History Smoking and tobacco/nicotine status: never used tobacco/nicotine Substance/Drug Use: never Current gender identity: Female Vitals/I&O/Wt Last Vital Signs Temp 98.2 F 02/28/24 01:23 Pulse 67 02/28/24 01:23 Resp 16 02/28/24 01:23 BP 131/71 02/28/24 01:23 Pulse Ox 92 02/28/24 01:23 O2 Del Method Room Air 02/28/24 01:24 Weight last 48 hrs Weight 78.018 kg Weight 78.018 kg Physical Exam 2 Narrative: General: No acute distress, AO x3 HEENT: PERRLA, pupils bilaterally equal and reactive, pallors not present Chest: Normal vesicular breath sounds, no added sounds, equal good air entry bilaterally CVS: S1-S2 regular, no murmurs, no tachycardia, no gallops, no rubs Abdomen: Soft, nontender, no organomegaly, bowel sounds present Neuro: No focal deficits, no facial deformity, AO x3, power 5/5 in all limbs Data 02/28/24 03:19 02/28/24 03:19 A&P Assessment and plan (1) Fall: Qualifiers: Encounter type: initial encounter Qualified Code(s): W19.XXXA - Unspecified fall, initial encounter (2) Contusion: Qualifiers: Contusion area: hip Encounter type: initial encounter Laterality: left Qualified Code(s): S70.02XA - Contusion of left hip, initial encounter (3) Intractable pain: Plan 84F with recent knee surgery presenting today with mechanical fall and following left hip and thigh pain. CT of the extremity negative for any fracture. Patient continues to report significant pain, suspect this is related to muscle contusion. She has received IV Dilaudid and oral oxycodone in the emergency room without pain. She is able to move her leg while laying in bed, however this is limited by pain. Does not want to get out of bed to try to bear weight on the leg. Patient lives at home alone and would likely not be safe to discharge home until her pain can be resolved enough for her to be able to ambulate out of bed to manage her ADLs. Will observe her and manage pain medications overnight Morphine 2 mg IV every 4 hours, oxycodone APAP 5/325 1 tab p.o. every 4 hours as needed for pain. Add Toradol 15 mg IV every 6 hours as needed after checking kidney function today. Continue home doses of Cardizem ER to 40 mg daily and levothyroxine. Rest of the home medication list needs to be verified. Attestations 2 Medical Necessity Statement*: less than 2 midnight stay anticipated Coding Level of Care Code Acute Code for Chg Fwd Moderate MDM includes number and complexity of problems actively addressed during encounter, amount and/or complexity of data reviewed/ordered and described risk of complication, morbidity or mortality of management as documented Diagnoses Fall W19.XXXA Encounter type: initial encounter Contusion S70.02XA Contusion area: hip Encounter type: initial encounter Laterality: left Intractable pain R52
[2024-02-28] MEDS: oxyCODONE-APAP 5-325 mg Tablet 1 TAB PO ×3 (02:39→15:41)
[2024-02-28] MEDS: enoxaparin 40 mg/0.4 mL Syringe SUBCUT (02:40)
[2024-02-28 03:25] LABS: Basophils # 0.1 10^3/uL (0.0-0.1); Basophils % 0.7 %; Eosinophils # 0.2 10^3/uL (0.0-0.8); Hematocrit 30.3 % (36-47); Lymphocytes # 1.7 10^3/uL (0.8-4.8); Mean Corpuscular Hemoglobin 27.2 pg (27-33); Mean Corpuscular Volume 90.4 fl (85-98); Mean Platelet Volume 10.9 fL (7.4-10.4); Monocytes % 13.6 %; Neutrophils # 4.31 10^3/uL (1.8-7.7); Neutrophils % 59.4 %; Nucleated Red Blood Cells % 0 %; Platelet Count 406 10^3/cmm (157-399); Red Blood Count 3.35 10^6/uL (3.85-5.65); Red Cell Distribution Width 13.9 % (12.1-15.1); White Blood Count 7.26 10^3/uL (3.29-11.43)
[2024-02-28 03:41] LABS: Alanine Aminotransferase < 5 U/L (0-33); Albumin Level 3.2 g/dL (3.5-5.2); Alkaline Phosphatase 191 U/L (35-105); Aspartate Amino Transferase 10 U/L (0-32); Blood Urea Nitrogen 23 mg/dL (8-23); Calcium 8.7 mg/dL (8.5-10.5); Carbon Dioxide 23 mmol/L (22-29); Chloride 107 mmol/L (98-107); Globulin 2.5 g/dL (1.3-4.6); Glucose 103 mg/dL (65-115); Osmolality Calculated 294 mOsm/kg (285-295); Sodium 140 mmol/L (136-145); Total Bilirubin 0.2 mg/dL (0.15-1.2); Total Protein 5.7 g/dL (6.6-8.7)
[2024-02-28] MEDS: levothyroxine 75 mcg Tablet 150 MCG PO (05:24)
[2024-02-28] MEDS: morphine 4 mg/mL SDV 1 mL 2 MG IVP (05:52)
--- NOTE | 2024-02-28 06:39 | USCV_ITS ---
Siomara Key Age: 84 Gender: F : 1940 Exam Date: 02/28/2024 09:31 Ordering Phys: Jody Velez MD Technologist: [place] [facility] [place]: knee replacement 2 weeks ago pain PROCEDURES: Venous duplex imaging was performed in only the left lower extremity. On the left side, the common femoral, superficial femoral, profunda femoral, popliteal, posterior tibial, greater saphenous veins, and the peroneal trunk were identified and interrogated in the standard fashion. FINDINGS: Normal 2-D Doppler and augmentation and compressibility throughout the lower extremity venous structures. Additional imaging through the proximal calf veins also reveals no thrombus. Limited evaluation of the greater saphenous vein is patent with no thrombus. CONCLUSIONS No DVT left lower extremity. Dr. Shyann Mccormack DO (Electronically Signed) Final Date: 28 February 2024 11:08 S
[2024-02-28] MEDS: dilTIAZem ER (24HR) 240 mg Capsule PO (09:06)
[2024-02-28] MEDS: pantoprazole DR 40 mg Tablet PO (09:06)
--- NOTE | 2024-02-28 10:23 | W.PM.EVENTAC ---
Event Note Event Note: Patient was seen this morning Complaining of pain in her left thigh area On examination I do not see any swelling There is no bruising or ecchymosis Sensitive to touch My plan is to use Voltaren gel or Biofreeze I do believe this is neuropathy related pain there is no sign of fracture, venous Doppler results are pending suspicion for clot is low Discharge later today versus tomorrow morning
[2024-02-28] MEDS: diclofenac 1% Topical Gel 100 gm 1 APPLIC TOPICAL ×4 (11:08→20:13)
[2024-02-28] MEDS: gabapentin 300 mg Capsule PO ×3 (11:09→20:13)
[2024-02-29] VITALS (7 sets, daily range): BP systolic 101–109; BP diastolic 62–67; PULSE 81–100; RESP 15–18; TEMP 36.6–37.5; O2SAT 91–93
[2024-02-29] MEDS: enoxaparin 40 mg/0.4 mL Syringe SUBCUT (01:41)
[2024-02-29] MEDS: oxyCODONE-APAP 5-325 mg Tablet 1 TAB PO ×3 (01:41→15:22)
[2024-02-29] MEDS: levothyroxine 75 mcg Tablet 150 MCG PO (05:38)
[2024-02-29] MEDS: diclofenac 1% Topical Gel 100 gm 1 APPLIC TOPICAL ×2 (09:30→13:17)
[2024-02-29] MEDS: dilTIAZem ER (24HR) 240 mg Capsule PO (09:30)
[2024-02-29] MEDS: pantoprazole DR 40 mg Tablet PO (09:37)
[2024-02-29] MEDS: gabapentin 300 mg Capsule PO ×2 (09:38→15:23)
--- NOTE | 2024-02-29 11:18 | PM.DCS ---
Discharge Providers Date of Admission: 02/28/24 00:43 Date of Discharge: February 29, 2024 Attending Provider at Admission: Jody Velez MD Attending Provider at Discharge: Hazel Villavicencio MD Primary Care Provider: Jeannine Chan MD Diagnoses at Discharge Discharge Diagnosis (1) Fall: Status: Acute Qualifiers: Encounter type: initial encounter Qualified Code(s): W19.XXXA - Unspecified fall, initial encounter (2) Contusion: Status: Acute Qualifiers: Contusion area: hip Encounter type: initial encounter Laterality: left Qualified Code(s): S70.02XA - Contusion of left hip, initial encounter (3) Intractable pain: Status: Acute Reason for Visit Reason for Visit: fall Hospital Course Hospital Course 84-year-old female who presented to the hospital when she fell while taking a step at the front entrance of home, she was not able to put any weight on her left leg she was extremely concerned and came to the ER, her pain was unbearable, she was admitted for management of pain, Voltaren gel and Biofreeze was recommended, we rule out DVT, CT scan did not show any fracture, patient is able to put weight on her left leg on the day of discharge. She did have enough opioids. I have discontinued celecoxib which can increase the risk of DVT. Patient lives alone her daughter checks on her on daily basis. She is being discharged with stable hemodynamics. She recently had left knee surgery couple of weeks ago, Physical Exam Narrative: Awake and alert GCS 15 Nonfocal neuroexam Pleasant cooperative Urinary Catheter Management: Peña: Cath Placed During This Visit: yes Reason for Continuing Indwelling Catheter: Other Urinary Catheter Date of Insertion: 02/28/24 Urinary Catheter Time of Insertion: 14:32 Discharge Data Studies Completed and Pending Completed Studies During Hospitalization Category Date Time Status CT hip LT wo con* [id number] Stat Cat Scan 02/27/24 21:39 Completed XR femur LT min 2V* [id number] Stat Exams 02/27/24 20:51 Completed XR hip LT 2-3V wo/w pel* [id number] Stat Exams 02/27/24 20:51 [place] [id number] Routine Ultrasound 02/28/24 06:39 Completed Radiology Impressions Femur X-Ray 02/27/24 20:51 IMPRESSION: No acute osseous findings. Hip/Pelvis X-Ray 02/27/24 20:51 IMPRESSION: Nondisplaced intertrochanteric left femur fracture not excluded. CT could be considered for further assessment if clinically warranted. Hip CT 02/27/24 21:39 IMPRESSION: 1. No acute osseous findings. 2. Mild degenerative changes of the hip. Laboratory Results WBC 7.26 10^3/uL (3.29-11.43) 02/28/24 03:19 RBC 3.35 10^6/uL (3.85-5.65) L 02/28/24 03:19 Hgb 9.10 g/dL (11.27-16.99) L 02/28/24 03:19 Hct 30.3 % (36-47) L 02/28/24 03:19 MCV 90.4 fl (85-98) 02/28/24 03:19 MCH 27.2 pg (27-33) 02/28/24 03:19 MCHC 30.0 g/dL (30-55) 02/28/24 03:19 RDW 13.9 % (12.1-15.1) 02/28/24 03:19 Plt Count 406 10^3/cmm (157-399) H 02/28/24 03:19 MPV 10.9 fL (7.4-10.4) H 02/28/24 03:19 Neut % (Auto) 59.4 % 02/28/24 03:19 Lymph % (Auto) 23.0 % 02/28/24 03:19 Braxton % (Auto) 13.6 % 02/28/24 03:19 Eos % (Auto) 3.0 % 02/28/24 03:19 Baso % (Auto) 0.7 % 02/28/24 03:19 Neut # (Auto) 4.31 10^3/uL (1.8-7.7) 02/28/24 03:19 Lymph # (Auto) 1.7 10^3/uL (0.8-4.8) 02/28/24 03:19 Braxton # (Auto) 1.0 10^3/uL (0.2-0.9) H 02/28/24 03:19 Eos # (Auto) 0.2 10^3/uL (0.0-0.8) 02/28/24 03:19 Baso # (Auto) 0.1 10^3/uL (0.0-0.1) 02/28/24 03:19 Nucleated RBC % (auto) 0 % 02/28/24 03:19 Nucleated RBCs # 0.0 /100WBC 02/28/24 03:19 Sodium 140 mmol/L (136-145) 02/28/24 03:19 Potassium 4.0 mmol/L (3.5-5.1) 02/28/24 03:19 Chloride 107 mmol/L (98-107) 02/28/24 03:19 Carbon Dioxide 23 mmol/L (22-29) 02/28/24 03:19 Anion Gap 14.0 (5-19) 02/28/24 03:19 BUN 23 mg/dL (8-23) 02/28/24 03:19 Creatinine 0.9 mg/dL (0.5-0.9) 02/28/24 03:19 GFR Calculation Not Reportable 02/28/24 03:19 Glucose 103 mg/dL (65-115) 02/28/24 03:19 Calculated Osmolality 294 mOsm/kg (285-295) 02/28/24 03:19 Calcium 8.7 mg/dL (8.5-10.5) 02/28/24 03:19 Total Bilirubin 0.2 mg/dL (0.15-1.2) 02/28/24 03:19 AST 10 U/L (0-32) 02/28/24 03:19 ALT < 5 U/L (0-33) 02/28/24 03:19 Alkaline Phosphatase 191 U/L (35-105) H 02/28/24 03:19 Total Protein 5.7 g/dL (6.6-8.7) L 02/28/24 03:19 Albumin 3.2 g/dL (3.5-5.2) L 02/28/24 03:19 Globulin 2.5 g/dL (1.3-4.6) 02/28/24 03:19 Vitals Last Vital Signs Temp 98.3 F 02/29/24 07:31 Pulse 100 02/29/24 09:33 Resp 17 02/29/24 09:37 BP 106/65 02/29/24 07:31 Pulse Ox 93 02/29/24 09:33 O2 Del Method Room Air 02/29/24 09:33 Discharge Plan Discharge Patient Disposition: Home Condition: Stable Prescriptions: New Percocet 5-325 mg tablet 1 tab PO Q6H PRN (Reason: pain) Qty: 7 0RF Continued losartan 50 mg tablet 50 mg PO DAILY 90 Days Qty: 90 1RF levothyroxine 150 mcg tablet 150 mcg PO DAILY 90 Days Qty: 90 1RF diltiazem HCl 240 mg capsule,ext.rel 24h degradable 240 mg PO DAILY 90 Days Qty: 90 1RF omeprazole 40 mg capsule,delayed release(DR/EC) 40 mg PO DAILY 90 Days Qty: 90 1RF potassium chloride 10 mEq capsule, extended release 10 meq PO BID 90 Days Qty: 180 1RF ondansetron 4 mg tablet,disintegrating 4 mg PO Q8H PRN (Reason: nausea and vomiting) Qty: 30 1RF tramadol 50 mg tablet 50 mg PO Q6H PRN (Reason: pain) 15 Days Qty: 60 0RF acetaminophen 500 mg tablet 1,000 mg PO Q8H PRN (Reason: Pain) aspirin 325 mg Tablet,Delayed Release (Dr/Ec) 325 mg PO DAILY 60 Days Qty: 60 0RF Discontinued celecoxib 100 mg capsule 100 mg PO DAILY Discharge Orders: Discharge Order (Routine); Ordered 02/29/24 Ordered By: Hazel Villavicencio Referrals: Jeannine Chan MD [Primary Care Provider] - 03/06/24 11:00 am Patient Instructions: Oxycodone/Acetaminophen (By mouth), Fall Prevention for Older Adults (GEN), Hip Contusion (GEN), Opioid Safety, Pain Management Discharge Attestations Time Spent in Discharge Care*: less than 30 min Quality Metrics Clinical Quality Measures [ No reported AMI, CVA or VTE this stay] Coding Level of Care Code Acute Code for Chg Fwd Diagnoses Fall W19.XXXA Encounter type: initial encounter Contusion S70.02XA Contusion area: hip Encounter type: initial encounter Laterality: left Intractable pain R52
--- NOTE | 2024-02-29 12:40 | PC.NURSE ---
Discharge delay- Discharge paperwork has been signed by patient. Patient is awaiting transport.
== END 2024-02-29 15:33 | disposition home health service (06) ==
LOC: ER 23:36 → MEDSURG 02-28 00:43
PROVIDERS: Admitting Provider Student in an Organized Health Care Education/Training Program; Emergency Provider Emergency Medicine; PCP Family Medicine; Visit Provider Internal Medicine
DX: S70.02XA Contusion of left hip, initial encounter (principal); W19.XXXA Unspecified fall, initial encounter; I10 Essential (primary) hypertension; E03.9 Hypothyroidism, unspecified; K21.9 Gastro-esophageal reflux disease without esophagitis
CPT/HCPCS: 36415; 51702; 73502; 73552; 73700; 80053; 85025; 93971; 96372; 96374; 96375; 99285; G0378; J1170; J1650; J2270

== ENCOUNTER → 2024-04-09 13:37 | Outpatient (BNVA) | payer MEDICARE, SELFPAY | PROVIDERS: PCP Family Medicine; Visit Provider Specialist | DX: Z96.653 Presence of artificial knee joint, bilateral (principal) | CPT/HCPCS: 73560; 73565; 99024 ==

== ENCOUNTER → 2024-04-19 08:37 | Outpatient (BNVA) | payer MEDICARE, SELFPAY | PROVIDERS: PCP Family Medicine; Visit Provider Family Medicine | DX: I10 Essential (primary) hypertension (principal) | CPT/HCPCS: 80048 ==

== ENCOUNTER → 2024-05-02 10:02 | Outpatient (BNVA) | payer MEDICARE, SELFPAY | PROVIDERS: PCP Family Medicine; Visit Provider Specialist | DX: Z96.652 Presence of left artificial knee joint (principal) | CPT/HCPCS: 73560; 73565; 99024 ==

== ENCOUNTER → 2024-05-14 13:51 | Outpatient (BNVA) | payer MEDICARE, SELFPAY | PROVIDERS: PCP Family Medicine; Visit Provider Family Medicine | DX: I10 Essential (primary) hypertension (principal); E03.9 Hypothyroidism, unspecified; J44.9 Chronic obstructive pulmonary disease, unspecified | CPT/HCPCS: 80048; 80061; 83735; 84439; 84443; 84481; 85025 ==

== ENCOUNTER 2024-05-24 06:00 | Outpatient (RCR) | payer MEDICARE, SELFPAY | END 2024-05-24 23:59 | disposition home or self-care (01) | LOC: MPT 06:00 | PROVIDERS: Visit Provider Nurse Practitioner | DX: Z47.89 Encounter for other orthopedic aftercare (principal) | CPT/HCPCS: 97162 ==

== ENCOUNTER 2024-05-25 06:00 | Outpatient (RCR) | payer MEDICARE, SELFPAY | END 2024-06-23 23:59 | disposition home or self-care (01) | LOC: MPT 06:00 | PROVIDERS: Visit Provider Nurse Practitioner | DX: Z47.89 Encounter for other orthopedic aftercare (principal) | CPT/HCPCS: 97110; 97112; 97116; 97530 ==

== ENCOUNTER 2024-06-24 06:00 | Outpatient (RCR) | payer MEDICARE, SELFPAY | END 2024-07-05 23:59 | disposition home or self-care (01) | LOC: MPT 06:00 | PROVIDERS: Visit Provider Nurse Practitioner | DX: Z47.89 Encounter for other orthopedic aftercare (principal) | CPT/HCPCS: 97110; 97112 ==

== ENCOUNTER → 2024-07-04 10:30 | Outpatient (BNVA) | payer MEDICARE, SELFPAY | PROVIDERS: Visit Provider Specialist | DX: Z96.652 Presence of left artificial knee joint (principal); M17.12 Unilateral primary osteoarthritis, left knee | CPT/HCPCS: 73560; 73565; 99213 ==

== ENCOUNTER → 2024-07-24 10:33 | Outpatient (BNVA) | payer MEDICARE, SELFPAY | PROVIDERS: PCP Family Medicine; Visit Provider Family Medicine | DX: I10 Essential (primary) hypertension (principal); E03.9 Hypothyroidism, unspecified | CPT/HCPCS: 80048; 84443; 85025 ==

== ENCOUNTER → 2024-08-21 09:59 | Outpatient (BNVA) | payer MEDICARE, SELFPAY | PROVIDERS: PCP Family Medicine; Visit Provider Nurse Practitioner | DX: N39.0 Urinary tract infection, site not specified (principal); R30.0 Dysuria | CPT/HCPCS: 81000; 87077; 87086; 87184 ==

== ENCOUNTER → 2024-10-09 10:29 | Outpatient (BNVA) | payer MEDICARE, SELFPAY | PROVIDERS: PCP Family Medicine; Visit Provider Family Medicine | DX: R10.9 Unspecified abdominal pain (principal); E03.9 Hypothyroidism, unspecified; I10 Essential (primary) hypertension; K21.9 Gastro-esophageal reflux disease without esophagitis; E87.6 Hypokalemia; R29.898 Other symptoms and signs involving the musculoskeletal system | CPT/HCPCS: 80053; 84439; 84443; 84481; 85025 ==

== ENCOUNTER → 2024-11-29 09:22 | Outpatient (BNVA) | payer MEDICARE, SELFPAY | PROVIDERS: PCP Family Medicine; Visit Provider Nurse Practitioner | DX: N39.0 Urinary tract infection, site not specified (principal) | CPT/HCPCS: 81000 ==

== ENCOUNTER → 2024-11-30 10:20 | Outpatient (BNVA) | payer MEDICARE, SELFPAY | PROVIDERS: PCP Family Medicine; Referring Provider Nurse Practitioner; Visit Provider Nurse Practitioner | DX: R35.0 Frequency of micturition (principal) | CPT/HCPCS: 87086 ==

== ENCOUNTER → 2025-01-14 12:59 | Outpatient (BNVA) | payer MEDICARE, SELFPAY | PROVIDERS: PCP Family Medicine; Visit Provider Specialist | DX: Z96.652 Presence of left artificial knee joint (principal) | CPT/HCPCS: 73560; 73565; 99213 ==

== ENCOUNTER → 2025-01-18 09:23 | Outpatient (BNVA) | payer MEDICARE, SELFPAY | PROVIDERS: PCP Family Medicine; Visit Provider Nurse Practitioner | DX: N39.0 Urinary tract infection, site not specified (principal) | CPT/HCPCS: 81000; 87086 ==

== ENCOUNTER → 2025-04-09 09:55 | Outpatient (BNVA) | payer MEDICARE, SELFPAY | PROVIDERS: PCP Family Medicine; Visit Provider Family Medicine | DX: I10 Essential (primary) hypertension (principal); E03.9 Hypothyroidism, unspecified | CPT/HCPCS: 80053; 80061; 84439; 84443; 84481; 85025 ==

== ENCOUNTER → 2025-06-06 09:49 | Outpatient (BNVA) | payer MEDICARE, SELFPAY | PROVIDERS: PCP Family Medicine; Referring Provider Family Medicine; Visit Provider Family Medicine | DX: E03.9 Hypothyroidism, unspecified (principal) | CPT/HCPCS: 84439; 84443; 84481 ==

== ENCOUNTER → 2025-06-19 14:21 | Outpatient (BNVA) | payer MEDICARE, SELFPAY | PROVIDERS: PCP Family Medicine; Visit Provider Family Medicine | DX: R39.9 Unspecified symptoms and signs involving the genitourinary system (principal); N39.0 Urinary tract infection, site not specified | CPT/HCPCS: 81000; 87086 ==